=== PATIENT | male | born 1960 | race Caucasian/White ===

== ENCOUNTER 2024-03-29 13:22 | Outpatient (AMB) | payer OTHER, SELFPAY ==
--- OUTSIDE RECORDS SUMMARY | 2024-03-29 13:25 | XMS_ITS | Continuity of Care Document ---
Author Organization [facility] Address [address] [facility] [address] [place] [address] Phone Care Team Providers Care Reaming Press Operator Name Role Phone Flavio Garcia PA-C Unavailable Unavailable Allergies, Adverse Reactions, Alerts Substance Reaction Status Criticality No Known Allergies Active No Inform ation Medications Medication Instructions Dosage Effective Dates (start - stop) Status Comments naproxen 500 mg tablet take 1 tablet by oral route 2 times every day with food 500 MG - Active Vascepa 1 gram capsule take 2 capsule by oral route 2 times every day with food swallowing whole. Do not chew, open, dissolve and/or crush. 2 G - Active losartan 50 mg tablet take 1 tablet by o ral route every day 50 MG - Active Jardiance 10 mg tablet take 1 tablet by oral route every day in the morning 10 MG - Active garlic tablet - Active ezetimibe 10 mg tablet take 1 tablet by oral route every day 10 MG - Active Procedures Procedure Date Offic/outpt E&m Estab Mod-nh 4 24 Offic/outpt E&m Estab Mod-nh 2 24 Rad Exam Shoulder; Comp Offic/outpt E&m Estab Mod-nh 2 24 Rad Exam Knee; 4 View Offic/outpt E&m Estab Mod-nh 4 21 Offic/outpt E&m New Mod Sever 0 Offic/outpt E&m Estab Mod-nh 4 20 Offic/outpt E&m Estab Mod-nh 4 20 Postop F/u Visit Incld Global 0 Postop F/u Visit Incld Global 0 Postop F/u Visit Incld Global 0 Arthros Knee; W/menisect (med/ 20 Offic/outpt E&m Estab Mod-nh 4 20 Offic/outpt E&m Estab Mod-nh 2 20 Offic/outpt E&m New Mod-nh 60 0 Advance Directives Directive Yes / No Effective Date File Name No Information Encounters Encounter Description Practice Location Reason(s) For Visit Diagnoses Date Provider Providers Copied on Encounter [facility], [address], [id number], tel:[phone] /[facility] No Information 4 Jose Muniz . [address] [facility], [address] [place] [address], [id number] , [place]. tel:[phone] Offic/outpt E&m Estab Mod-nh 4 [facility], [address], [id number], [place] tel:[phone] /[facility] Obesity, [place] pain of left shoulderTraum atic complete tear of left rotator cuff, initial encounterRupt ure of left biceps tendon, initial encounterArth ritis of left acromioclavic ular joint Dec-0 4 Perla Frausto. [address] [facility], [address], [id number] , [place]. tel:[phone] Referring Provider: Jett Mcnulty, [address] [address], [place], [address] . tel:[phone] Offic/outpt E&m Estab Mod-nh 2 [facility], [address], [id number], [place] tel:[phone] /[facility] left shoulder (chief complaint) Acute pain of left shoulder 4 Jose Muniz . [address] [facility], [address], [place], [place], [id number] , [place]. tel:[phone] Referring Provider: Flavio Garcia, [address] [facility] [address], [place], [address] . tel:[phone] Offic/outpt E&m [facility] Mod-hi 2 [facility], [address] [facility] [address], [place], [id number], [place] tel:[phone] /[facility] Left shoulder (chief complaint) Acute pain of left shoulderObesi ty, unspecified 4 Jose Muniz . [address] [facility], [address], [place], [place], [id number] , [place]. tel:[phone] Referring Provider: Flavio Garcia, [address] [facility] Suite [facility], [place], [address] . tel:[phone] Offic/outpt E&m [facility] Mod-hi 4 [facility], [address] [facility] [address], [place], [place], [id number], [place] tel:[phone] /[facility] S/P right knee arthroscopyOb esity, unspecifiedCh ondromalacia of right kneeRight anterior knee painWork related injury 1 Perla Frausto. [address], [id number] , [place]. tel:[phone] Referring Provider: Jett Mcnulty, [address] [facility] [address], [place], [address] . tel:[phone] Offic/outpt E&m [facility] Sever [facility], [address] [address], [place], [place], [id number], [place] tel:[phone] [facility] (R) knee injury (chief complaint) Right anterior knee painH/O fracture of patellaWork related injuryObesity , unspecified 0 Matt Montez. [address] [facility], [facility] [address], [place], [id number] , [place]. [phone] Referring Provider: Tc Mcdermott, [address], [place], [address] . tel:[phone] Offic/outpt E&m Estab Mod-hi 4 [facility], [address], [place], [id number], [place] tel:[phone] [facility] Obesity, unspecifiedS/ P right knee arthroscopy Nov0 5 0 Perla Frausto. [address], [place], [id number] , [place]. tel:[phone] Referring Provider: Jett Mcnulty, [address], [place], [address] . tel:[phone] Offic/outpt E&m [facility] Mod-hi 4 [facility], [address], [place], [id number], [place] tel:[phone] [facility] S/P right knee arthroscopy 0 Perla Frausto. [address], [facility] [address], [place], [place], [id number] , [place]. [phone] Referring Provider: Jett Mcnulty, [address], [place], [address] . tel:[phone] [facility], [address] [facility] [address] [address], [place], [id number], [place] tel:[phone] [facility] S/P right knee arthroscopy 0 0 Perla Frausto. [address], [facility] [address], [place], [id number] , [place]. tel:[phone] Referring Provider: Jett Mcnulty, [address], [place], [address] . tel:[phone] [facility], [address] [address], [place], [id number], [place] tel:[phone] [facility] Obesity, unspecifiedS/ P right knee arthroscopy 0 Perla Frausto. [address] [facility], [facility] [address], [place], [id number] , [place]. tel:[phone] Referring Provider: Jett Mcnulty, [address] [facility] [address], [place], [address] . tel:[phone] [facility], [address] [facility] [address], [place], [id number], [place] tel:[phone] [facility] S/P right knee arthroscopy 0 Perla Frausto. [address] [facility], [facility] [address], [place], [id number] , [place]. tel:[phone] Referring Provider: Jett Mcnulty, [address] [address], [place], [address] . tel:[phone] [facility], [address] [address], [place], [id number], [place] tel:[phone] [facility] Surgery No Information 0 Perla Frausto. [address] [facility], [facility] [address], [place], [id number] , [place]. tel:[phone] Referring Provider: Jett Mcnulty, [address] [address], [place], [address] . tel:[phone] Offic/outpt E&m Estab Mod-hi 4 [facility], [address] [facility] [address], [place], [id number], [place] tel:[phone] [facility] Obesity, unspecifiedCu rrent peripheral tear of medial meniscus of right knee, initial encounterFrac ture of patella, sequela 0 Perla Frausto. [address] [facility], [facility] [address], [place], [id number] , [place]. tel:[phone] Referring Provider: Jett Mcnulty, [address] [facility] [address], [place], [address] . tel:[phone] Offic/outpt E&m [facility] Mod-hi 2 [facility], [address] [address], [place], [id number], [place] tel:[phone] [facility] Obesity, unspecifiedCu rrent peripheral tear of medial meniscus of right knee, initial encounterFrac ture of patella, sequela 0 Perla Frausto. [address] [facility], [facility] [address], [place], [place], [id number] , [place]. tel:[phone] Referring Provider: Jett Mcnulty, [address] [address], [place], [address] . tel:[phone] Offic/outpt E&m [facility] Mod-hi 60 [facility], [address], [id number], tel:[phone] [facility] Current peripheral tear of medial meniscus of right knee, initial encounterFrac ture of patella, sequelaObesit y, unspecified 0 Perla Frausto. [address] [facility], [facility] [address], [place], [address] , [place]. tel:[phone] Referring Provider: Jett Mcnulty, [address], [address] . tel:[phone] Family History Family Member Type Diagnosis Age At Onset Sister Problem (finding) Cancer, unknown Mother Problem (finding) Cancer, unknown Mother Problem Cancer, unknown Payers Payer name Insurance type Covered republican ID gerberamada delfintonya(rell [facility] [id number] Social History Type Description Quantity Date Captured Comments Sex Male Smoking Status No Information Chief Complaint And Reason For Visit No Information Reason For Referral Reason For Referral No Information Plan Of Treatment Date Type Action Status Goal Lifestyle education regardin g diet completed Goal Lifestyle education regardin g diet completed Goal Lifestyle education regardin g diet completed Goal Lifestyle education regardin g diet completed Goal Lifestyle education regardin g diet completed Goal Lifestyle education regardin g diet completed Goal Lifestyle education regardin g diet completed Goal Lifestyle education regardin g diet completed Goal Lifestyle education regardin g diet completed Goal Lifestyle education regardin g diet completed Goal Lifestyle education regardin g diet completed Referral Ordered: Rad Exam Shoulder; Comp ordered Referral Ordered: MRI Upper Extremity Other Than Joint W/O Cont. Left upper extremity ordered Referral Ordered: Rad Exam Knee; 4 View Right knee ordered Appointment Lakhwinder Kimball BOOKED History Of Present Illness Encounter Date Complaint History Of Prese nt Illness left shoulder The patient is a 63 year-old male who presents to the clinic to discuss the results of his mri left shoulder pain this is a work comp case. Reports a 8/10 pain level described as throbbing. Reports numbness and tingling in the left hand. Reports radiating pain down the left arm into his left elbow. Reports popping/clicking. Reports limited/painful ROM. Reports weakness. Reports the naproxen takes the edge off his pain. Left shoulder The patient is a 63 year-old male who presents to the clinic regarding left shoulder pain this is a work comp case. 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 Reports a 8/10 pain level described as throbbing. Reports numbness and tingling. Reports radiating pain down the left arm into his left hand. Reports popping/clicking. Reports limited/painful ROM. Reports weakness. Denies previous surgeries and injections. Patient had xrays, left thumb and left knee done at [facility], patient was given naproxen 500. Of note patient also complains of cervical pain, left knee, and left thumb pain. 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 This is a W/C related injury. Patient status post right knee arthroscopic partial medial meniscectomy, 10/06/[address] Duncan. He was transferred by Dr. Duncan for continued care on his right knee since surgery. He was placed at [facility] on 02/10/2020 and given an 8% PIR. The patient denies any problems with healing of the portals without swelling, redness, or warmth. The patient complains of persistent sharp, burning and throbbing right knee pain, rated 7/10. The patient underwent formal physical therapy without significant improvement in his symptoms, per report. There is discomfort interrupting the patient's sleep at night. The patient denies any fevers or chills, hip, back or groin pain. The patient complains of paresthesias through the right lower extremity. The patient has taken Mobic with benefit. Functional Status Date Functional Assessmen t No Information Instructions Date Instruction Additional Infor mation Lifestyle education regarding di et Related to Obesity, unspecified Lifestyle education regarding di et Related to Obesity, unspecified Lifestyle education regarding di et Related to Obesity, unspecified Lifestyle education regarding di et Related to Obesity, unspecified He is status post ar throscopic surgery. Dr. Duncan feels he is reached I. Related to Right anterior knee pain Patient was previous ly placed at [facility] by Dr. Duncan. He has been assigned an 8% impairment rating. He is back to work and he states he is having some pain but able to do his job. He was initially sent to me to discuss patellofemoral rehab but he states he is not interested at all. He wants to close his case and move on. He states he has had multiple physical therapy visits that have only made him worse. He actually feels better when he is moving around at work.I did review the notes from Dr. Duncan.He will be placed at [facility]. He has an 8% whole person impairment for which I deferred to Dr. Duncan. He may be released to work without any limitations. He wants no further treatment at this time. Related to Work related injury Lifestyle education regarding di et Related to Obesity, unspecified Lifestyle education regarding di et Related to Obesity, unspecified Lifestyle education regarding di et Related to Obesity, unspecified Lifestyle education regarding di et Related to Obesity, unspecified Lifestyle education regarding di et Related to Obesity, unspecified Lifestyle education regarding di et Related to Obesity, unspecified Lifestyle education regarding di et Related to Obesity, unspecified Assessments Type Assessment Date No Information Patient Care Teams Name Effective Dates (start - stop) Status Members No Information
--- NOTE | 2024-03-29 13:27 | MHC.PC.OV ---
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 Transferring from Dr Bravo in [place] in [place]. Overdue for visit MSK: Underwent spinal cord fusion at [facility], then went to [facility]. Gets home health evaluations once annually. On gabapentin, baclofen pump. Follows with physiatry Dr Jett Reed in [facility]. Nursing comes in once every 3 weeks to refill the baclofen pump. c/o rash bilateral feet and ankle. itchy at times/painful Urology: On tamsulosin Colon cancer: Colonoscopy within the last year at [facility]. ROS CONSTITUTIONAL: Denies weight loss, fever and chills. HEENT: Denies changes in vision and hearing. RESPIRATORY: Denies SOB and cough. CV: Denies palpitations and CP GI: Denies abdominal pain, nausea, vomiting and diarrhea. : Denies dysuria and urinary frequency. MSK: Denies new myalgia and joint pain. SKIN: see PHI NEUROLOGICAL: Denies headache PSYCHIATRIC: Denies recent changes in mood. PHYSICAL EXAM: GENERAL: Alert and oriented x 3. NAD EYES: EOMI. Anicteric. HENT: Moist mucous membranes. No scleral icterus. No cervical lymphadenopathy. LUNGS: Clear to auscultation bilaterally. CARDIOVASCULAR: Regular rate and rhythm. No murmur. No JVD. ABDOMEN: Soft, non-tender +bs EXTREMITIES: No edema. Non-tender. SKIN: Dishydrotic eczema NEUROLOGIC: No focal neurological deficits. CN II-XII grossly intact PSYCHIATRIC: Cooperative. Appropriate mood and affect [facility] Family History (Updated 03/29/24 @ 13:38 by Vicki Hale CMA) Brother Alcoholic Asthma Father Alcoholic Asthma Mother Asthma Social History (Updated 03/29/24 @ 13:36 by Vicki Hale CMA) Housing: House Patient Tobacco Use Status: Former Tobacco user Tobacco use type: Cigarette Cigarettes Per Day: 20 Years Smoked: 30 e-Cigarette/Vaping Use: Never Used Second Hand Smoke Exposure: No service: No Current occupational status: retired Cognitive needs: No Hearing needs: No Vision needs: Yes (glasses) Questionnaire PHQ-9 Over the last 2 weeks, how often have you been bothered by any of the following problems? 1. Little interest or pleasure in doing things: not at all 2. Feeling down, depressed, or hopeless: not at all 3. Trouble falling or staying asleep, or sleeping too much: not at all 4. Feeling tired or having little energy: not at all 5. Poor appetite or overeating: not at all 6. Feeling bad about yourself - or that you are a failure or have let yourself or your family down: not at all 7. Trouble concentrating on things, such as reading the newspaper or watching television: not at all 8. Moving or speaking so slowly that other people could have noticed. Or the opposite - being so fidgety or restless that you have been moving around a lot more than usual: not at all 9. Thoughts that you would be better off or of hurting yourself in some way: not at all Total score: 0 Depression Screening Interpretation: Negative Depression Screening Done: Yes 35768 - PHQ-9 Billing: Yes Source: Developed by Drs. Farzad Robbins, Ewa Arana, Jayy Zaragoza and colleagues, with an educational ke from [employer]. Thrive Questionnaire Date Thrive assessed: 03/29/24 I am a: Patient What is your living situation today?: I have a steady place to live Within the past 12 months, did the food you bought not last and you didn't have the money to get more?: Never true Within the past 12 months, did you worry whether your food would run out before you got money to buy more?: Never true Do you have trouble paying for medicines?: No Do you have trouble getting transportation to medical appointments?: No Do you have trouble paying your heating and electricity bill?: No Do you have trouble taking care of your child, family member or friend?: No Do you have trouble with day-to-day activities such as bathing, preparing meals, shopping, managing finances, etc.?: No Are you currently unemployed and looking for a job?: No Are you interested in more education?: No Please select the resources that you would like help with: None Currently or been in a relationship where the following occur: No concerns reported THRIVE Score: 0 AUDIT C Alcohol Use Questionnaire (AUDIT-C) 1. How often do you have a drink containing alcohol?: Never Total Score: 0 MARICHUY-7 AMB Questionnaire MARICHUY-7 Date MARICHUY - 7 assessed: 03/29/24 Feeling nervous, anxious, or on edge: 0 = Not at all Not being able to stop or control worryin = Not at all Worrying too much about different things: 0 = Not at all Trouble relaxin = Not at all Being so restless that it is hard to sit still: 0 = Not at all Becoming easily annoyed or irritable: 0 = Not at all Feeling afraid as if something awful might happen: 0 = Not at all Total MARICHUY-7 score (0-4 normal; 5-9 mild; 10-14 moderate; 15-21 severe): 0 Source: Developed by Drs. Farzad Robbins, Ewa Arana, Jayy Zaragoza and colleagues, with an educational ke from [employer]. MARICHUY-7 Assessment Billing MARICHUY-7 Assessment Tool: MARICHUY-7 Assessment 98169 Physical exam (Primary Care) Vital Signs: Last Vital Signs Pulse 81 03/29/24 13:42 BP 134/82 03/29/24 13:42 Pulse Ox 97 03/29/24 13:42 Oxygen Delivery Method Room Air 03/29/24 13:42 BMI result Body Mass Index 25.1 Tobacco/Smoking Status: Tobacco use Status Tobacco use date assessed 03/29/24 03/29/24 13:41 Patient Tobacco Use Status Former Tobacco user 03/29/24 13:41 Tobacco use type Cigarette 03/29/24 13:41 e-Cigarette/Vaping Use Never Used 03/29/24 13:41 PHQ-9: PHQ-9 Score PHQ-9: Total score 0 03/29/24 13:29 Depression Screening Interpretation: Negative Currently or been in a relationship where the following occur: No concerns reported Coding Level of Care Code New Pt Level 4 (50830) Diagnoses Encounter to establish care Z76.89 Bilateral foot-drop M21.371; M21.372 History of spinal cord injury Z87.828 Rash R21 Additional Codes MARICHUY-7 Assessment Billing - MARICHUY-7 Assessment Tool: MARICHUY-7 Assessment 66136 ([id number]) PHQ-9 - 21393 - PHQ-9 Billing: Yes ([id number]) Assessment & Plan Assessment & Plan (1) Encounter to establish care: Code(s): Z76.89 - Persons encountering health services in other specified circumstances Category: Medical Plan: 63 y/o to establish care. past medical, surgical, social and family history reviewed (2) Bilateral foot-drop: Code(s): M21.371 - Foot drop, right foot; M21.372 - Foot drop, left foot Category: Medical Plan: continue physiatry follow up (3) History of spinal cord injury: Code(s): Z87.828 - Personal history of other (healed) physical injury and trauma Category: Medical Plan: follow up physiatry (4) Rash: Code(s): R21 - Rash and other nonspecific skin eruption Category: Medical Plan: 3 day oral steroid steroid cream x 2 weeks then as needed Medications: New prednisone 40 mg (2 x 20 mg) PO DAILY 3 days 6 tabs 0RF Shingrix (PF) 50 mcg/0.5 mL (varicella-zoster gE-AS01B (PF)) 0.5 mL IM ONCE 1 ea 0RF NS betamethasone valerate 0.1% 1 appl topical BID PRN 45 grams 3RF skin irritation
[2024-03-29 13:42] VITALS: BP 134/82; PULSE 81; O2SAT 97; BMI 25.1
== END 2024-03-29 14:05 | disposition home or self-care (01) ==
PROVIDERS: PCP Internal Medicine; Visit Provider Internal Medicine
DX: Z76.89 Persons encountering health services in other specified circumstances (principal); M21.371 Foot drop, right foot; M21.372 Foot drop, left foot; Z87.828 Personal history of other (healed) physical injury and trauma; R21 Rash and other nonspecific skin eruption

== ENCOUNTER 2024-04-20 09:22 | Outpatient (AMB) | payer OTHER, SELFPAY ==
--- NOTE | 2024-04-20 09:42 | MHC.PC.OV ---
Vital Signs 04/20/24 09:44 04/20/24 09:48 BMI Reason not done Patient refused/unable BP 144/88 H 136/84 Blood Pressure Location Lt brachial Lt brachial Position Sitting Sitting Pulse 65 Pulse Source Pulse Oximeter Temp 98.3 F Temp Source Oral Pulse Oximetry (%) 93 Oxygen Delivery Method Room Air Intake Visit Reasons: Rash on feet Intake Note: Bialteral rash on legs and feet. Ongoing for a month. 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. Transferring from Dr Bravo in [place] in [place]. Overdue for visit MSK: Underwent spinal cord fusion at [facility], then went to [facility]. Gets home health evaluations once annually. On gabapentin, baclofen pump. Follows with physiatry Dr Jett Reed [place]. Nursing comes in once every 3 weeks to refill the baclofen pump. Continued rash bilateral feet and ankle, lower leg left>right. Tender, slightly itchy. Circular and petechial in areas. Tried oral prednisone with some relief on feet otherwise no improvement. Topical steroid has not been working Urology: On tamsulosin Colon cancer: Colonoscopy within the last year at [facility]. ROS CONSTITUTIONAL: Denies weight loss, fever and chills. HEENT: Denies changes in vision and hearing. RESPIRATORY: Denies SOB and cough. CV: Denies palpitations and CP GI: Denies abdominal pain, nausea, vomiting and diarrhea. : Denies dysuria and urinary frequency. MSK: Denies new myalgia and joint pain. SKIN: see HPI NEUROLOGICAL: Denies headache PSYCHIATRIC: Denies recent changes in mood. PHYSICAL EXAM: GENERAL: Alert and oriented x 3. NAD EYES: EOMI. Anicteric. HENT: Moist mucous membranes. No scleral icterus. No cervical lymphadenopathy. LUNGS: Clear to auscultation bilaterally. CARDIOVASCULAR: Regular rate and rhythm. No murmur. No JVD. ABDOMEN: Soft, non-tender +bs EXTREMITIES: No edema. Non-tender. SKIN: circular red slightly raised rash, petechial in spots, slight ulceration in anterior palma ~1cm NEUROLOGIC: No focal neurological deficits. CN II-XII grossly intact PSYCHIATRIC: Cooperative. Appropriate mood and affect [facility] Family History Brother Alcoholic Asthma Father Alcoholic Asthma Mother Asthma Social History (Updated 04/20/24 @ 09:52 by Vicki Hale CMA) Housing: House Alcohol intake: current Patient Tobacco Use Status: Former Tobacco user Tobacco use type: Cigarette Cigarettes Per Day: 20 Years Smoked: 30 e-Cigarette/Vaping Use: Never Used Second Hand Smoke Exposure: No service: No Current occupational status: retired Cognitive needs: No Hearing needs: No Vision needs: Yes (glasses) Questionnaire Thrive Questionnaire Date Thrive assessed: 04/17/24 I am a: Patient What is your living situation today?: I have a steady place to live Within the past 12 months, did the food you bought not last and you didn't have the money to get more?: Never true Within the past 12 months, did you worry whether your food would run out before you got money to buy more?: Never true Do you have trouble paying for medicines?: No Do you have trouble getting transportation to medical appointments?: No Do you have trouble paying your heating and electricity bill?: No Do you have trouble taking care of your child, family member or friend?: No Do you have trouble with day-to-day activities such as bathing, preparing meals, shopping, managing finances, etc.?: No Are you currently unemployed and looking for a job?: No Are you interested in more education?: No Please select the resources that you would like help with: None Currently or been in a relationship where the following occur: No concerns reported THRIVE Score: 0 AUDIT C Alcohol Use Questionnaire (AUDIT-C) 1. How often do you have a drink containing alcohol?: Never Total Score: 0 MARICHUY-7 AMB Questionnaire MARICHUY-7 Date MARICHUY - 7 assessed: 03/29/24 Source: Developed by Drs. Farzad Robbins, Ewa Arana, Jayy Zaragoza and colleagues, with an educational ke from [employer]. Physical exam (Primary Care) Vital Signs: Last Vital Signs Temp 98.3 F 04/20/24 09:44 Pulse 65 04/20/24 09:44 BP 136/84 04/20/24 09:48 Pulse Ox 93 04/20/24 09:44 Oxygen Delivery Method Room Air 04/20/24 09:44 Tobacco/Smoking Status: Tobacco use Status Tobacco use date assessed 03/29/24 04/20/24 09:52 Patient Tobacco Use Status Former Tobacco user 04/20/24 09:52 Tobacco use type Cigarette 04/20/24 09:52 e-Cigarette/Vaping Use Never Used 04/20/24 09:52 Thrive Assessment: Date of Thrive Assessment Date Thrive assessed 04/17/24 04/20/24 09:52 Currently or been in a relationship where the following occur: No concerns reported Coding Level of Care Code Est Pt Level 3 (54776) Diagnoses Rash R21 Assessment & Plan Assessment & Plan (1) Rash: Code(s): R21 - Rash and other nonspecific skin eruption Category: Medical Plan: Lotrisone ordered Referral to dermatology Orders: Referrals Dermatology Referral R21 - Rash and other nonspecific skin eruption Medications: New clotrimazole-betamethasone 1-0.05 % 1 appl topical BID 4 weeks 45 grams 1RF Discontinued betamethasone valerate 0.1% Discontinued Reason: Doctor's Order 1 appl topical BID PRN 45 grams 3RF skin irritation
[2024-04-20 09:44] VITALS: BP 144/88; PULSE 65; TEMP 36.8; O2SAT 93
[2024-04-20 09:48] VITALS: BP 136/84
--- OUTSIDE RECORDS SUMMARY | 2024-04-20 10:13 | XMS_ITS | Continuity of Care Document ---
Author Organization [facility] Address [address] [facility] [address] [place] [address] Phone Care Team Providers Care Media Specialist Name Role Phone Jett Duncan MD Unavailable Unavailable Allergies, Adverse Reactions, Alerts Substance [...] Active Procedures Procedure Date Offic/outpt E&m Estab Mod-ga 4 25 Offic/outpt E&m Estab Mod-ga 4 24 Offic/outpt E&m Estab Mod-ga 2 24 Rad Exam Shoulder; Comp Offic/outpt E&m Estab Mod-hi 2 24 Rad Exam Knee; 4 View Offic/outpt E&m Estab Mod-hi 4 21 Offic/outpt E&m New Mod Sever 0 Offic/outpt E&m Estab Mod-hi 4 20 Offic/outpt E&m Estab Mod-ga 4 20 Postop F/u Visit Incld Global 0 Postop F/u Visit Incld Global 0 Postop F/u Visit Incld Global 0 Arthros Knee; W/menisect (med/ 20 Offic/outpt E&m Estab Mod-ga 4 20 Offic/outpt E&m Estab Mod-ga 2 20 Offic/outpt E&m New Mod-ga 60 0 Advance Directives Directive Yes / No Effective Date File Name No Information Encounters Encounter Description Practice Location Reason(s) For Visit Diagnoses Date Provider Providers Copied on Encounter [facility], [address], [id number], tel:[phone] /[facility] No Information 5 Uriel Frausto. [address], [id number] , [place]. tel:[phone] Offic/outpt E&m Estab [facility] 4 [facility], [address], [id number], tel:[phone] /[facility] Acute pain of left shoulderArthr itis of left acromioclavic ular jointRupture of left biceps tendon, initial encounterTrau matic complete tear of left rotator cuff, subsequent encounterObes ity, unspecified 5 Uriel Frausto. [address], [id number] , [place]. tel:[phone] Referring Provider: Jett Mcnulty, [address], [address] . tel:[phone] Offic/outpt E&m Estab Mod-ga 4 [facility], [address], [id number], [place] tel:[phone] /[facility] Obesity, unspecifiedAc jana pain of left shoulderTraum atic complete tear of left rotator cuff, initial encounterRupt ure of left biceps tendon, initial encounterArth ritis of left acromioclavic ular joint Sep-0 4 Uriel Frausto. [address] [facility], [place], [place], [id number] , [place]. tel:[phone] Referring Provider: Jett Mcnulty, [address] [facility] [address], [place], [address] . tel:[phone] Offic/outpt E&m Estab Mod-hi 2 [facility], [address] [facility] [address], [place], [place], [id number], [place] tel:[phone] /[facility] left shoulder (chief complaint) Acute pain of left shoulder 4 Jose Muniz . [address] [facility], [address], [place], [place], [id number] , [place]. tel:[phone] Referring Provider: Flavio Garcia, [address] [facility] [address], [place], [address] . tel:[phone] Offic/outpt E&m Estab Mod-hi 2 [facility], [address] [facility] [address], [place], [place], [id number], [place] tel:[phone] /[facility] Left shoulder (chief complaint) Acute pain of left shoulderObesi ty, unspecified 4 Jose Muniz . [address] [facility], [place], [place], [id number] , [place]. tel:[phone] Referring Provider: Flavio Garcia, [address] [facility] [address], [place], [address] . tel:[phone] Offic/outpt E&m Estab Mod-hi 4 [facility], [address] [facility] [address], [place], [place], [id number], [place] tel:[phone] /[facility] S/P right knee arthroscopyOb esity, unspecifiedCh ondromalacia of right kneeRight anterior knee painWork related injury 1 Uriel Frausto. [address] [facility], [facility] [address], [place], [place], [id number] , [place]. tel:[phone] Referring Provider: Jett Mcnulty, [address] [facility] [address], [place], [address] . tel:[phone] Offic/outpt E&m New Mod Sever [facility], [address] [address], [place], [place], [id number], [place] tel:[phone] [facility] (R) knee injury (chief complaint) Right anterior knee painH/O fracture of patellaWork related injuryObesity , unspecified 0 Matt Montez. [address] [facility], [address] [address], [place], [place], [id number] , [place]. [phone] Referring Provider: Tc Mcdermott, [address] [address], [place], [address] . tel:[phone] Offic/outpt E&m [facility] Mod-hi 4 [facility], [address], [id number], [place] tel:[phone] [facility] Obesity, unspecifiedS/ P right knee arthroscopy 0 Uriel Frausto. [address] [facility], [address], [id number] , [place]. tel:[phone] Referring Provider: Jett Mcnulty, [address] [facility] [address], [address] . tel:[phone] Offic/outpt E&m Estab Mod-hi 4 [facility], [address] [address], [place], [place], [id number], [place] tel:[phone] [facility] S/P right knee arthroscopy 0 Uriel Frausto. [address] [facility], [facility] [address], [place], [id number] , [place]. tel:[phone] Referring Provider: Jett Mcnulty, [address], [place], [address] . tel:[phone] [facility], [address], [place], [place], [id number], [place] tel:[phone] [facility] S/P right knee arthroscopy 0 Uriel Frausto. [address], [place], [place], [id number] , [place]. tel:[phone] Referring Provider: Jett Mcnulty, [address], [place], [address] . tel:[phone] [facility], [address], [place], [place], [id number], [place] tel:[phone] [facility] Obesity, unspecifiedS/ P right knee arthroscopy 0 Uriel Frausto. [address], [place], [place], [id number] , [place]. tel:[phone] Referring Provider: Jett Mcnulty, [address], [place], [address] . tel:[phone] [facility], [address], [place], [place], [id number], [place] tel:[phone] [facility] S/P right knee arthroscopy 0 Uriel Frausto. [address], [place], [place], [id number] , [place]. tel:[phone] Referring Provider: Jett Mcnulty, [address], [place], [address] . tel:[phone] [facility], [address], [place], [place], [address], [place] tel:[phone] [facility] No Information 0 Uriel Frausto. [address], [place], [place], [id number] , [place]. tel:[phone] Referring Provider: Jett Mcnulty, [address], [place], [address] . tel:[phone] Offic/outpt E&m [facility] Mod-hi 4 [facility], [address], [place], [place], [id number], [place] tel:[phone] [facility] Obesity, unspecifiedCu rrent peripheral tear of medial meniscus of right knee, initial encounterFrac ture of patella, sequela 0 Uriel Frausto. [address], [facility] [address], [place], [place], [id number] , [place]. tel:[phone] Referring Provider: Jett Mcnulty, [address] [address], [place], [address] . tel:[phone] Offic/outpt E&m [facility] Mod-hi 2 [facility], [address], [place], [place], [address], [place] tel:[phone] [facility] Obesity, unspecifiedCu rrent peripheral tear of medial meniscus of right knee, initial encounterFrac ture of patella, sequela 0 Uriel Frausto. [address], [facility] [address], [place], [place], [id number] , [place]. tel:[phone] Referring Provider: Jett Mcnulty, [address], [place], [address] . tel:[phone] Offic/outpt E&m New Mod-hi 60 [facility], [address], [place], [address], [place] tel:[phone] [facility] Current peripheral tear of medial meniscus of right knee, initial encounterFrac ture of patella, sequelaObesit y, unspecified Mariana Frausto. [address] [facility], [facility] [address], [place], [place], [address] , . [phone] Referring Provider: Jett Mcnulty, [address] [facility] [address], [place], [address] . tel:[phone] Family History Family Member Type Diagnosis Age At Onset Sister Problem (finding) Cancer, unknown Mother Problem (finding) Cancer, unknown Mother Problem Cancer, unknown Payers Payer name Insurance type Covered green party ID Authoriza tion(s) No Information Social History Type Description Quantity Date Captured [...] View Right knee ordered Appointment Lak[facility] Kimball PREOP URIEL MATHIS OKED Appointment Lakhwinder Kimball BOOKED Appointment Lakhwinder Kimball (Preferred) DEL OKED Appointment Lakhwinder Kimball BOOKED History Of Present [...] left thumb and left knee done at [facility], patient was given naproxen 500. Of note patient also complains of cervical pain, left knee, and left thumb pain. 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 [...] No Information Instructions Date Instruction Additional Infor sally Lifestyle education regarding di et Related to Obesity, unspecified Lifestyle education regarding di et Related to Obesity, unspecified Lifestyle education regarding di et Related to Obesity, unspecified Lifestyle education regarding di et Related to Obesity, unspecified Lifestyle education regarding di et Related to Obesity, unspecified Patient was previous ly placed at [facility] by Dr. Duncan. He has been assigned [...] from Dr. Duncan.He will be placed at [facility]. He has an 8% whole person impairment for which I deferred to Dr. Duncan. He may be released to work without any limitations. He wants no further treatment at this time. Related to Work related injury He is status post ar throscopic surgery. Dr. Duncan feels he is reached [facility]. Related to Right anterior knee pain Lifestyle education regarding di et Related to [...]
== END 2024-04-20 10:28 | disposition home or self-care (01) ==
PROVIDERS: PCP Internal Medicine; Visit Provider Internal Medicine
DX: R21 Rash and other nonspecific skin eruption (principal)

== ENCOUNTER → 2024-04-20 09:22 | Outpatient (BNVA) | payer OTHER, SELFPAY | PROVIDERS: PCP Internal Medicine; Visit Provider Internal Medicine ==

== ENCOUNTER 2024-09-13 09:17 | Outpatient (AMB) | payer OTHER, SELFPAY ==
--- NOTE | 2024-09-13 09:19 | A.OFFPC_ITS ---
Vital Signs 09/13/24 09:23 09/13/24 09:27 Height 5 ft 7 in BMI Reason not done Patient refused/unable BP 148/78 H 144/80 H Blood Pressure Location Lt brachial Lt brachial Position Sitting Sitting Respiration 14 Pulse 66 Pulse Source Pulse Oximeter Temp 98.1 F Temp Source Oral Pulse Oximetry (%) 91 L Oxygen Delivery Method Room Air Intake Visit Reasons: Sore on LT. 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 Denies fevers. Has been using rash from [place] for dermatitis. Continued rash bilateral feet and ankle, lower leg left>right. Tender, slightly itchy. Circular and petechial in areas. Tried oral prednisone with some relief on feet otherwise no improvement. Topical steroid has not been working MSK: Underwent spinal cord fusion at [facility], then went to [facility]. Gets home health evaluations once annually. On gabapentin, baclofen pump. Follows with physiatry Dr Jett Reed in [facility]. Nursing comes in once every 3 weeks to refill the baclofen pump. Urology: On tamsulosin Colon cancer: Colonoscopy within the last year at [facility]. ROS see HPI PHYSICAL EXAM: GENERAL: Alert and oriented x 3. NAD EYES: EOMI. Anicteric. HENT: Moist mucous membranes. No scleral icterus. No cervical lymphadenopathy. LUNGS: Clear to auscultation bilaterally. CARDIOVASCULAR: Regular rate and rhythm. No murmur. No JVD. ABDOMEN: Soft, non-tender +bs EXTREMITIES: No edema. Left palma non purulent red warm cellulitis over majority of medial anterior palma with proximal and distal streaking. slight ulceration in anterior palma ~1cm (chronic) NEUROLOGIC: No focal neurological deficits. CN II-XII grossly intact PSYCHIATRIC: Cooperative. Appropriate mood and affect [facility] Family History Brother Alcoholic Asthma Father Alcoholic Asthma Mother Asthma Social History Housing: House Alcohol intake: current Patient Tobacco Use Status: Former Tobacco user Tobacco use type: Cigarette Cigarettes Per Day: 20 Years Smoked: 30 e-Cigarette/Vaping Use: Never Used Second Hand Smoke Exposure: No Substance Use Type: Marijuana service: No Current occupational status: retired Cognitive needs: No Hearing needs: No Vision needs: Yes (glasses) Questionnaire Thrive Questionnaire Date Thrive assessed: 04/17/24 I am a: Patient What is your living situation today?: I have a steady place to live Within the past 12 months, did the food you bought not last and you didn't have the money to get more?: Never true Within the past 12 months, did you worry whether your food would run out before you got money to buy more?: Never true Do you have trouble paying for medicines?: No Do you have trouble getting transportation to medical appointments?: No Do you have trouble paying your heating and electricity bill?: No Do you have trouble taking care of your child, family member or friend?: No Do you have trouble with day-to-day activities such as bathing, preparing meals, shopping, managing finances, etc.?: No Are you currently unemployed and looking for a job?: No Are you interested in more education?: No Please select the resources that you would like help with: None Currently or been in a relationship where the following occur: No concerns reported THRIVE Score: 0 AUDIT C Alcohol Use Questionnaire (AUDIT-C) 1. How often do you have a drink containing alcohol?: Never 3. How often do you have six or more drinks on one occasion?: Never Total Score: 0 MARICHUY-7 AMB Questionnaire MARICHUY-7 Date MARICHUY - 7 assessed: 03/29/24 Source: Developed by Drs. Farzad Robbins, Ewa Arana, Jayy Zaragoza and colleagues, with an educational ke from [employer]. Physical exam (Primary Care) Vital Signs: Last Vital Signs Temp 98.1 F 09/13/24 09:23 Pulse 66 09/13/24 09:23 Resp 14 09/13/24 09:23 BP 144/80 H 09/13/24 09:27 Pulse Ox 91 L 09/13/24 09:23 Oxygen Delivery Method Room Air 09/13/24 09:23 Tobacco/Smoking Status: Tobacco use Status Tobacco use date assessed 09/13/24 09/13/24 09:24 Patient Tobacco Use Status Former Tobacco user 09/13/24 09:30 Tobacco use type Cigarette 09/13/24 09:30 e-Cigarette/Vaping Use Never Used 09/13/24 09:30 Thrive Assessment: Date of Thrive Assessment Date Thrive assessed 04/17/24 09/13/24 09:21 Currently or been in a relationship where the following occur: No concerns reported Coding Level of Care Code Est Pt Level 4 (53408) Diagnoses Left leg cellulitis L03.116 Assessment & Plan Assessment & Plan (1) Left leg cellulitis: Code(s): L03.116 - Cellulitis of left lower limb Category: Medical Plan 64 year old presenting with cellulitis Non purulent Will start keflex x 10 days. Follow up in one week for recheck Medications: New cephalexin 500 mg PO QID 40 caps 0RF
[2024-09-13 09:23] VITALS: BP 148/78; PULSE 66; RESP 14; TEMP 36.7; O2SAT 91
[2024-09-13 09:27] VITALS: BP 144/80
--- OUTSIDE RECORDS SUMMARY | 2024-09-13 09:44 | XMS_ITS | Clinical Summary ---
Author Organization [facility] Address [address] [place] [address] Care Team Providers Care Network Project Manager Name Role Phone Unavailable Primary Care Provider Unavailabl e Social History Tobacco Use Types Packs/Day Years Used Date Smoking Tobacco: Never Assessed Sex and Gender Information Value Date Recorded Sex Assigned at Not on file Legal Sex Male 5:16 PM EST Gender Identity Not on file Sexual Orientation Not on file Plan of Treatment Health Maintenance Due Date Last Done Comments Hepatitis C Virus Screening 1961 HIV Screening 1974 DTaP/Tdap/Td Vaccines (1 - Tdap) 1980 Colonoscopy 2006 Pneumococcal Vaccines 50+ (1 of 1 - PCV) 06/27/2011 Zoster (Shingles) Vaccine (1 of 2) 06/27/2011 COVID-19 Vaccine ( - 2023-2 5 season) 2023 Influenza Vaccine 11/05/2024 RSV Vaccine 60 years and old er and Patients (1 - 1-dose 75+ series) 2036 Hepatitis B Vaccines Aged Out No long er eligible based on patient's age to complete this topic Insurance [facility]
== END 2024-09-13 09:46 | disposition home or self-care (01) ==
LOC: HO.HMCFM 09:18
PROVIDERS: PCP Internal Medicine; Visit Provider Internal Medicine
DX: L03.116 Cellulitis of left lower limb (principal)

== ENCOUNTER → 2024-09-13 09:17 | Outpatient (BNVA) | payer MEDICARE, SELFPAY | PROVIDERS: PCP Internal Medicine; Visit Provider Internal Medicine ==

== ENCOUNTER 2024-09-21 14:35 | Outpatient (AMB) | payer OTHER, SELFPAY ==
--- NOTE | 2024-09-21 14:40 | MHC.PC.OV ---
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 Patient received a course of keflex with receding redness since onset. Denies fevers. Has been using rash from [facility] for dermatitis. Continued rash bilateral feet and ankle, lower leg left>right. Tender, slightly itchy. Circular and petechial in areas. Tried oral prednisone with some relief on feet otherwise no improvement. Topical steroid has not been working MSK: Underwent spinal cord fusion at [facility], then went to [facility]. Gets home health evaluations once annually. On gabapentin, baclofen pump. Follows with physiatry Dr Jett Reed in [facility]. Nursing comes in once every 3 weeks to refill the baclofen pump. Urology: On tamsulosin Colon cancer: Colonoscopy within the last year at [facility]. ROS see HPI PHYSICAL EXAM: GENERAL: Alert and oriented x 3. NAD EYES: EOMI. Anicteric. HENT: Moist mucous membranes. No scleral icterus. No cervical lymphadenopathy. LUNGS: Clear to auscultation bilaterally. CARDIOVASCULAR: Regular rate and rhythm. No murmur. No JVD. ABDOMEN: Soft, non-tender +bs EXTREMITIES: receding but still persistent cellulitic changes. Underlying peripheral vascular changes NEUROLOGIC: No focal neurological deficits. CN II-XII grossly intact PSYCHIATRIC: Cooperative. Appropriate mood and affect [facility] Family History Brother Alcoholic Asthma Father Alcoholic Asthma Mother Asthma Social History Housing: House Alcohol intake: current Patient Tobacco Use Status: Former Tobacco user Tobacco use type: Cigarette Cigarettes Per Day: 20 Years Smoked: 30 e-Cigarette/Vaping Use: Never Used Second Hand Smoke Exposure: No Substance Use Type: Marijuana service: No Current occupational status: retired Cognitive needs: No Hearing needs: No Vision needs: Yes (glasses) Questionnaire PHQ-9 Over the last 2 weeks, how often have you been bothered by any of the following problems? 1. Little interest or pleasure in doing things: not at all 2. Feeling down, depressed, or hopeless: not at all 3. Trouble falling or staying asleep, or sleeping too much: not at all 4. Feeling tired or having little energy: not at all 5. Poor appetite or overeating: not at all 6. Feeling bad about yourself - or that you are a failure or have let yourself or your family down: not at all 7. Trouble concentrating on things, such as reading the newspaper or watching television: not at all 8. Moving or speaking so slowly that other people could have noticed. Or the opposite - being so fidgety or restless that you have been moving around a lot more than usual: not at all 9. Thoughts that you would be better off or of hurting yourself in some way: not at all Total score: 0 Depression Screening Interpretation: Negative Depression Screening Done: Yes 00253 - PHQ-9 Billing: Yes Source: Developed by Drs. Farzad Robbins, Ewa Arana, Jayy Zaragoza and colleagues, with an educational ke from [employer]. Thrive Questionnaire Date Thrive assessed: 04/17/24 Within the past 12 months, did the food you bought not last and you didn't have the money to get more?: Never true Within the past 12 months, did you worry whether your food would run out before you got money to buy more?: Never true Do you have trouble paying your heating and electricity bill?: No Do you have trouble with day-to-day activities such as bathing, preparing meals, shopping, managing finances, etc.?: No Are you interested in more education?: No Please select the resources that you would like help with: None Currently or been in a relationship where the following occur: No concerns reported THRIVE Score: 0 MARICHUY-7 AMB Questionnaire MARICHUY-7 Date MARICHUY - 7 assessed: 03/29/24 Feeling nervous, anxious, or on edge: 0 = Not at all Not being able to stop or control worryin = Not at all Worrying too much about different things: 0 = Not at all Trouble relaxin = Not at all Being so restless that it is hard to sit still: 0 = Not at all Becoming easily annoyed or irritable: 0 = Not at all Feeling afraid as if something awful might happen: 0 = Not at all Total MARICHUY-7 score (0-4 normal; 5-9 mild; 10-14 moderate; 15-21 severe): 0 Source: Developed by Drs. Farzad Robbins, Ewa Arana, Jayy Zaragoza and colleagues, with an educational ke from [employer]. Physical exam (Primary Care) Vital Signs: Last Vital Signs Temp 99.1 F 09/21/24 14:43 Pulse 74 09/21/24 14:43 Resp 14 09/21/24 14:43 BP 139/76 09/21/24 14:43 Pulse Ox 92 09/21/24 14:43 Oxygen Delivery Method Room Air 09/21/24 14:43 Tobacco/Smoking Status: Tobacco use Status Tobacco use date assessed 09/21/24 09/21/24 14:49 Patient Tobacco Use Status Former Tobacco user 09/21/24 14:42 Tobacco use type Cigarette 09/21/24 14:42 e-Cigarette/Vaping Use Never Used 09/21/24 14:42 PHQ-9: PHQ-9 Score PHQ-9: Total score 0 09/21/24 14:56 Depression Screening Interpretation: Negative Thrive Assessment: Date of Thrive Assessment Date Thrive assessed 04/17/24 09/21/24 14:42 Currently or been in a relationship where the following occur: No concerns reported Coding Level of Care Code Est Pt Level 4 (03060) Diagnoses Peripheral vascular disease I73.9 Left leg cellulitis L03.116 Rash R21 Additional Codes PHQ-9 - 05681 - PHQ-9 Billing: Yes ([id number]) Assessment & Plan Assessment & Plan (1) Peripheral vascular disease: Code(s): I73.9 - Peripheral vascular disease, unspecified Category: Medical (2) Left leg cellulitis: Code(s): L03.116 - Cellulitis of left lower limb Category: Medical (3) Rash: Code(s): R21 - Rash and other nonspecific skin eruption Category: Medical Plan 64 yo for f/up cellulitis Improving though without resolution Repeat kelfex course Referral to vascular Orders: Referrals Vascular Surgery Referral I73.9 - Peripheral vascular disease, unspecified, L03.116 - Cellulitis of left lower limb, Z87.828 - Personal history of other (healed) physical injury and trauma Medications: Refilled cephalexin 500 mg PO QID 40 caps 0RF
[2024-09-21 14:43] VITALS: BP 139/76; PULSE 74; RESP 14; TEMP 37.3; O2SAT 92
--- OUTSIDE RECORDS SUMMARY | 2024-09-21 16:55 | XMS_ITS | Continuity of Care Document ---
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 Role Phone Jett Duncan MD Unavailable Unavailable Allergies, Adverse Reactions, Alerts Substance Reaction Status Criticality No Known Allergies Active No Inform ation Medications Medication Instructions Dosage Effective Dates (start - stop) Status Comments meloxicam 15 mg tablet take 1 tablet by oral route every day 15 MG - Active Vascepa 1 gram capsule [...] Active Procedures Procedure Date Offic/outpt E&m Estab Mod-hi 2 25 Postop F/u Visit Inc[facility] Global 5 Rad Exam Shoulder; Comp Postop F/u Visit [facility] Global 5 Postop F/u Visit [facility] Global 5 Postop F/u Visit [facility] 5 ARTHROSCOP ROTATOR CUFF RREPR 5 Scope Shldr Surg;dist Clavicul Arthroscpy Shldr; Decomp Subac Feb-03-20 25 Unlisted Procedure Arthroscopy 25 Platelet Rich Plasma PRP Injection Offic/outpt E&m Estab Mod-nd 4 25 Acromio/clavicular canvas&we Offic/outpt E&m Estab Mod-nd 4 25 Offic/outpt E&m Estab Mod-nd 4 24 Offic/outpt E&m Estab Mod-nd 2 24 Rad Exam Shoulder; Comp Offic/outpt E&m Estab Mod-hi 2 24 Rad Exam Knee; 4 View Offic/outpt E&m Estab Mod-hi 4 21 Offic/outpt E&m New Mod [facility] 0 Offic/outpt E&m Estab Mod-nd 4 20 Offic/outpt E&m Estab Mod-nd 4 20 Postop F/u Visit [facility] 0 Postop F/u Visit [facility] 0 Postop F/u Visit [facility] 0 Arthros Knee; W/menisect (med/ 20 Offic/outpt E&m Estab Mod-nd 4 20 Offic/outpt E&m Estab Mod-nd 2 20 Offic/outpt E&m New Mod-nd 60 0 Advance Directives Directive Yes / No Effective Date File Name Other Directive No N/A N/A WARNING:The information contained in this section is historical and is provided for information only and does not constitute a legal document or any assurance that the information is still accurate. Please verify the information with the cook of the legal document before using it for clinical purposes. Encounters Encounter Description Practice Location Reason(s) For Visit Diagnoses Date Provider Providers Copied on Encounter Offic/outpt E&m Estab Mod-nd 2 [facility], [address] [address], [place], [place], [id number], [place] tel:[phone] /[facility] Obesity, unspecifiedAr thritis of left acromioclavic ular jointTraumati c complete tear of left rotator cuff, subsequent encounterS/P arthroscopy of left shoulder 5 Perla Frausto. [address] [facility], [place], [place], [address] , [place]. tel:[phone] Referring Provider: Jett Mcnulty, [address], [place], [address] . tel:[phone] [facility], [address], [place], [place], [address], [place] tel:[phone] /[facility] Obesity, unspecifiedS/ P arthroscopy of left shoulder 5 Perla Frausto. [address] [facility], [place], [place], [address] , [place]. tel:[phone] Referring Provider: Jett Mcnulty, [address] [address], [place], [address] . tel:[phone] [facility], [address], [place], [place], [address], [place] tel:[phone] /[facility] S/P arthroscopy of left shoulderObesi ty, unspecified 5 Perla Frausto. [address] [facility], [place], [place], [address] , [place]. [phone] Referring Provider: Jett Mcnulty, [address] [facility] [address], [place], [address] . tel:[phone] [facility], [address], [place], [place], [address], [place] tel:[phone] /[facility] S/p Left shoulder (chief complaint) Obesity, unspecifiedS/ P arthroscopy of left shoulder 5 Jose Muniz . [address], [place], [place], [address] , [place]. tel:[phone] Referring Provider: Jett Mcnulty, [address] [facility] [address], [place], [address] . tel:[phone] [facility], [address] [address], [place], [place], [address], [place] tel:[phone] /[facility] S/P arthroscopy of left shoulderObesi ty, unspecified Feb- 5 Perla Frausto. [address] [facility], [address], [id number] , [place]. tel:[phone] Referring Provider: Jett Mcnulty, [address] [address], [place], [address] . tel:[phone] [facility], [address], [id number], [place] tel:[phone] /[facility] No Information 5 Perla Frausto. [address], [id number] , [place]. tel:[phone] Referring Provider: Jett Mcnulty, [address] [address], [place], [address] . tel:[phone] Offic/outpt E&m Estab Mod-hi 4 [facility], [address], [id number], [place] tel:[phone] /[facility] Obesity, unspecifiedAc [place] pain of left shoulderArthr itis of left acromioclavic ular jointTraumati c complete tear of left rotator cuff, subsequent encounterRupt ure of left biceps tendon, initial encounter 5 Perla Frausto. [address] [address], [place], [place], [address] , [place]. tel:[phone] Referring Provider: Jtet Mcnulty, [address] [address], [place], [address] . tel:[phone] Offic/outpt E&m Estab Mod-hi 4 [facility], [address] [facility] [address], [place], [place], [address], [place] tel:[phone] /[facility] Acute pain of left shoulderArthr itis of left acromioclavic ular jointRupture of left biceps tendon, initial encounterTrau matic complete tear of left rotator cuff, subsequent encounterObes ity, unspecified Jaciel-0 5 Perla Frausto. [address] [facility], [facility] [address], [place], [place], [address] , [place]. tel:[phone] Referring Provider: Jett Mcnulty, [address] [facility] [address], [place], [address] . tel:[phone] Offic/outpt E&m Estab Mod-hi 4 [facility], [address] [address], [place], [place], [address], [place] tel:[phone] /[facility] Obesity, unspecifiedAc [place] pain of left shoulderTraum atic complete tear of left rotator cuff, initial encounterRupt ure of left biceps tendon, initial encounterArth ritis of left acromioclavic ular joint Sep-0 4 Perla Frausto. [address] [facility], [facility] [address], [place], [place], [address] , [place]. tel:[phone] Referring Provider: Jett Mcnulty, [address] [address], [place], [address] . tel:[phone] Offic/outpt E&m Estab Mod-hi 2 [facility], [address] [address], [place], [place], [address], [place] tel:[phone] /[facility] left shoulder (chief complaint) Acute pain of left shoulder 4 Jose Muniz . [address] [facility], [place], [place], [address] , [place]. tel:[phone] Referring Provider: Flavio Garcia, [address] [facility] [address], [place], [address] . tel:[phone] Offic/outpt E&m [facility] Mod-hi 2 [facility], [address], [place], [place], [address], [place] tel:[phone] /[facility] Left shoulder (chief complaint) Acute pain of left shoulderObesi ty, unspecified 4 Jose Muniz . [address] [facility], [place], [place], [address] , [place]. tel:[phone] Referring Provider: Flavio Jose, [address] [facility] [address], [place], [address] . tel:[phone] Offic/outpt E&m [facility] Mod-hi 4 [facility], [address], [place], [place], [address], [place] tel:[phone] /[facility] S/P right knee arthroscopyOb esity, unspecifiedCh ondromalacia of right kneeRight anterior knee painWork related injury 1 Perla Frausto. [address] [facility], [facility] [address], [place], [place], [address] , [place]. tel:[phone] Referring Provider: Jett Mcnulty, [address] [facility] [address], [place], [address] . tel:[phone] Offic/outpt E&m [facility], [address], [place], [place], [address], [place] tel:[phone] [facility] (R) knee injury (chief complaint) Right anterior knee painH/O fracture of patellaWork related injuryObesity , unspecified 0 Matt Montez. [address] [facility], [place], [place], [address] , [place]. tel:[phone] Referring Provider: Tc Mcdermott, [address] [facility] [address], [place], [address] . tel:[phone] Offic/outpt E&m [facility] Mod-hi 4 [facility], [address], [place], [place], [address], [place] tel:[phone] [facility] Obesity, unspecifiedS/ P right knee arthroscopy 0 Perla Frausto. [address], [place], [place], [address] , [place]. tel:[phone] Referring Provider: Jett Mcnulty, [address], [place], [address] . tel:[phone] Offic/outpt E&m Estab Mod-hi 4 [facility], [address], [place], [place], [address], [place] tel:[phone] [facility] S/P right knee arthroscopy 0 Perla Frausto. [address], [place], [place], [address] , [place]. tel:[phone] Referring Provider: Jett Mcnulty, [address], [place], [address] . tel:[phone] [facility], [address], [place], [place], [address], [place] tel:[phone] [facility] S/P right knee arthroscopy 0 Perla Frausto. [address], [place], [place], [address] , [place]. tel:[phone] Referring Provider: Jett Mcnulty, [address], [place], [address] . tel:[phone] [facility], [address], [place], [place], [address], [place] tel:[phone] [facility] Obesity, unspecifiedS/ P right knee arthroscopy 0 Perla Frausto. [address], [place], [place], [address] , [place]. [phone] Referring Provider: Jett Mcnulty, [address] [facility] [address], [place], [address] . tel:[phone] [facility], [address], [place], [place], [address], [place] tel:[phone] [facility] S/P right knee arthroscopy 0 Perla Frausto. [address] [facility] [address], [place], [place], [address] , [place]. tel:[phone] Referring Provider: Jett Mcnulty, [address] [facility] [address], [place], [address] . tel:[phone] [facility], [address] [address], [place], [place], [address], [place] tel:[phone] [facility] Surgery No Information 0 Perla Frausto. [address], [facility] [address], [place], [place], [address] , [place]. tel:[phone] Referring Provider: Jett Mcnulty, [address] [facility] [address], [place], [address] . tel:[phone] Offic/outpt E&m Estab Mod-hi 4 [facility], [address] [address], [place], [place], [address], [place] tel:[phone] [facility] Obesity, unspecifiedCu rrent peripheral tear of medial meniscus of right knee, initial encounterFrac ture of patella, sequela 0 Perla Frausto. [address], [facility] [address], [place], [place], [address] , [place]. tel:[phone] Referring Provider: Jett Mcnulty, [address] [facility] [address], [place], [address] . tel:[phone] Offic/outpt E&m Estab Mod-hi 2 [facility], [address] [address], [place], [place], [address], tel:[phone] [facility] Obesity, unspecifiedCu rrent peripheral tear of medial meniscus of right knee, initial encounterFrac ture of patella, sequela 0 Perla Frausto. [address] [facility], [place], [place], [address] , [place]. tel:[phone] Referring Provider: Jett Mcnulty, [address] [facility] [address], [place], [address] . tel:[phone] Offic/outpt E&m New Mod-hi 60 [facility], [address], [place], [place], [address], tel:[phone] [facility] Current peripheral tear of medial meniscus of right knee, initial encounterFrac ture of patella, sequelaObesit y, unspecified Jaciel- 0 Perla Frausto. [address] [facility], [facility] [address], [place], [place], [address] , [place]. tel:[phone] Referring Provider: Jett Mcnulty, [address] [facility] [address], [place], [address] . tel:[phone] Family History Family Member Type Diagnosis Age At Onset Sister Problem (finding) Cancer, unknown Mother Problem (finding) Cancer, unknown Mother Problem Cancer, unknown Payers Payer name Insurance type Covered democrat ID Breann ruiz(rell Oseguera [id number] Social History Type Description Quantity Date Captured Comments Alcohol Use Details No Caffeine Use Details Tobacco Use Status Ex-cigarette smoker 025 Smoking Status Former smoker Smoking Tobacco Use Details Cigarette: Age Stopped: 51 Cigarette: No Details Available Sex Male Vital Signs Date / Time: Height Weight BMI Pulse Rate Blood Pressure Temperature Respiratory Rate Body Surface Area Head Circumference Head Circ. Percentile Wt./Vern. Percentile BMI percentile Pulse Ox Inhaled Ox 4:02 PM 67.00 in 99.790 kg (220.00 lbs) 34.4 6 kg/m eter (2) Chief Complaint And Reason For Visit No [...] completed Referral Ordered: Rad Exam Shoulder; Comp Left shoulder ordered Referral Ordered: MRI Upper Extremity Other Than Joint W/O Cont. 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 He is here fwb with his sling. He rates his pain 8/10 described as achy and discomfroting. There is discomfort interrupting the patient's sleep at night. The patient denies any fevers or chills and midline neck pain. The patient continues to complain of persistent paresthesias in the left hand which is stable from his preoperative status. The patient has taken Percocet with benefit. [facility] and is complains pain is worse after PT. THIS IS WORKERS COMP left shoulder The patient is a 63 [...] left thumb and left knee done at [facility], patient was given naproxen 500. Of note patient also complains of cervical pain, left knee, and left thumb pain. 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 This is a W/C related injury. Patient status post right knee arthroscopic partial medial meniscectomy, 10/06/[address] Duncan. He was transferred by Dr. Duncan for continued care on his right knee since surgery. He was placed at [facility] on 02/10/2020 and given an 8% PIR. [...] benefit. Functional Status Date Functional Assessmen t Pain Score 7/10 Instructions Date Instruction Additional Infor sally Lifestyle [...] pain Patient was previous ly placed at [facility] by Dr. Duncan. He has been assigned [...] from Dr. Duncan.He will be placed at [facility]. He has an 8% whole person [...] to Obesity, unspecified Assessments Type Assessment Date assessment Obesity, unspecified assessment Arthritis of left acromioclavicu lar joint assessment Traumatic complete t ear of left rotator cuff, subsequent encounter assessment S/P arthroscopy of left shoulder Patient Care Teams Name Effective Dates (start - stop) Status Members No Information
== END 2024-09-21 16:46 | disposition home or self-care (01) ==
LOC: HO.HMCFM 14:36
PROVIDERS: PCP Internal Medicine; Visit Provider Internal Medicine
DX: I73.9 Peripheral vascular disease, unspecified (principal); L03.116 Cellulitis of left lower limb; R21 Rash and other nonspecific skin eruption

== ENCOUNTER → 2024-09-21 14:35 | Outpatient (BNVA) | payer OTHER, SELFPAY | PROVIDERS: PCP Internal Medicine; Visit Provider Internal Medicine | DX: L03.116 Cellulitis of left lower limb (principal); I73.9 Peripheral vascular disease, unspecified; R21 Rash and other nonspecific skin eruption; Z13.31 Encounter for screening for depression | CPT/HCPCS: 96127 ==

== ENCOUNTER 2024-09-28 13:12 | Outpatient (AMB) | payer OTHER, SELFPAY ==
--- OUTSIDE RECORDS SUMMARY | 2024-09-24 11:48 | XMS_ITS | Continuity of Care Document ---
Author Organization [facility] Address [address] [facility] [facility] [address] [place] [address] Phone Care Team Providers Care Salesperson Burial [employer] Name Role Phone Jett Duncan MD Unavailable [...] Procedures Procedure Date Offic/outpt E&m Estab Mod-hi 4 25 Postop F/u Visit Incld Global 5 Rad Exam Shoulder; Comp Postop F/u Visit Inc[facility] Global 5 Postop F/u Visit Inc[facility] Global 5 Postop F/u Visit [facility] Global 5 ARTHROSCOP ROTATOR CUFF RREPR 5 Scope Shldr Surg;dist Clavicul Arthroscpy Shldr; Decomp Subac Feb-03-20 25 Unlisted Procedure Arthroscopy 25 Platelet Rich Plasma PRP Injection Offic/outpt E&m Estab Mod-hi 4 25 Acromio/clavicular canvas&we Offic/outpt E&m Estab Mod-hi 4 25 Offic/outpt E&m Estab Mod-id 4 24 Offic/outpt E&m Estab Mod-id 2 24 Rad Exam Shoulder; Comp Offic/outpt E&m Estab Mod-hi 2 24 Rad Exam Knee; 4 View Offic/outpt E&m Estab Mod-hi 4 21 Offic/outpt E&m New Mod Sever 0 Offic/outpt E&m Estab Mod-id 4 20 Offic/outpt E&m Estab Mod-[facility] 20 Postop F/u Visit Incld Global 0 Postop F/u Visit Incld Global 0 Postop F/u Visit Incld Global 0 Arthros Knee; W/menisect (med/ 20 Offic/outpt E&m Estab Mod-id 4 20 Offic/outpt E&m Estab Mod-id 2 20 Offic/outpt E&m New Mod-hi 60 0 Advance Directives Directive Yes / No Effective Date File Name No Information Encounters Encounter Description Practice Location Reason(s) For Visit Diagnoses Date Provider Providers Copied on Encounter [facility], [facility] [address], [id number], tel:[phone] /[facility] No Information 5 Perla Frausto. [address] [place] [address], [id number] , [place]. tel:[phone] Offic/outpt E&m Estab Mod-id 4 [facility], [address], [id number], [place] tel:[phone] /[facility] Obesity, unspecifiedAr thritis of left acromioclavic ular jointTraumati c complete tear of left rotator cuff, subsequent encounterS/P arthroscopy of left shoulder 5 Perla Frausto. [address] [facility], [place], [place], [id number] , [place]. tel:[phone] Referring Provider: Jett Mcnulty, [address] [facility] [address], [place], [address] . tel:[phone] [facility], [address] [facility] [address], [place], [id number], [place] tel:[phone] /[facility] Obesity, unspecifiedS/ P arthroscopy of left shoulder 5 Perla Frausto. [address] [facility], [facility] [address], [place], [place], [id number] , [place]. tel:[phone] Referring Provider: Jett Mcnulty, [address] [facility] [address], [place], [address] . tel:[phone] [facility], [address] [facility] [address], [place], [id number], [place] tel:[phone] /[facility] S/P arthroscopy of left shoulderObesi ty, unspecified Jun- 5 Perla Frausto. [address] [facility], [facility] [address], [place], [place], [id number] , [place]. tel:[phone] Referring Provider: Jett Mcnulty, [address] [facility] [address], [place], [address] . tel:[phone] [facility], [address] [facility] [address], [place], [place], [id number], [place] tel:[phone] /[facility] S/p Left shoulder (chief complaint) Obesity, unspecifiedS/ P arthroscopy of left shoulder Fe 5 Jose Muniz . [address] [facility], [address] [place] [address], [id number] , [place]. tel:[phone] Referring Provider: Jett Mcnulty, [address] [facility] [address], [place], [address] . tel:[phone] [facility], [address] [facility] [address], [place], [place], [id number], [place] tel:[phone] /[facility] S/P arthroscopy of left shoulderObesi ty, unspecified 5 Perla Frausto. [address] [facility], [facility] [address], [place], [place], [id number] , [place]. tel:[phone] Referring Provider: Jett Mcnulty, [address] [facility] [address], [place], [address] . tel:[phone] [facility], [address] [address], [place], [place], [id number], tel:[phone] /[facility] No Information 5 Perla Frausto. [address] [facility], [facility] [address], [place], [place], [id number] , [place]. tel:[phone] Referring Provider: Jett Mcnulty, [address] [facility] [address], [place], [address] . tel:[phone] Offic/outpt E&m Estab Mod-hi 4 [facility], [address] [address], [place], [id number], [place] tel:[phone] /[facility] Obesity, unspecifiedAc jana pain of left shoulderArthr itis of left acromioclavic ular jointTraumati c complete tear of left rotator cuff, subsequent encounterRupt ure of left biceps tendon, initial encounter 5 Perla Frausto. [address] [facility], [facility] [address], [place], [place], [id number] , [place]. tel:[phone] Referring Provider: Jett Mcnulty, [address] [facility] [address], [place], [address] . tel:[phone] Offic/outpt E&m Estab Mod-hi 4 [facility], [address] [facility] [address], [place], [place], [id number], [place] tel:[phone] /[facility] Acute pain of left shoulderArthr itis of left acromioclavic ular jointRupture of left biceps tendon, initial encounterTrau matic complete tear of left rotator cuff, subsequent encounterObes ity, unspecified Jaciel-0 5 Perla Frausto. [address] [facility], [place], [place], [id number] , [place]. tel:[phone] Referring Provider: Jett Mcnulty, [address] [facility] [address], [place], [address] . tel:[phone] Offic/outpt E&m Estab Mod-hi 4 [facility], [address] [facility] [address], [place], [place], [id number], [place] tel:[phone] /[facility] Obesity, unspecifiedAc jana pain of left shoulderTraum atic complete tear of left rotator cuff, initial encounterRupt ure of left biceps tendon, initial encounterArth ritis of left acromioclavic ular joint Dec-0 4 Perla Frausto. [address] [facility], [facility] [address], [place], [place], [id number] , [place]. [phone] Referring Provider: Jett Mcnulty, [address] [facility] [address], [place], [address] . tel:[phone] Offic/outpt E&m Estab Mod-hi 2 [facility], [address] [facility], [place], [place], [id number], [place] tel:[phone] /[facility] left shoulder (chief complaint) Acute pain of left shoulder 4 Jose Muniz . [address] [facility], [address], [place], [place], [id number] , [place]. tel:[phone] Referring Provider: Flavio Garcia, [address] [facility] [address], [place], [address] . tel:[phone] Offic/outpt E&m [facility] Mod-hi 2 [facility], [address] [facility], [place], [place], [id number], [place] tel:[phone] /[facility] Left shoulder (chief complaint) Acute pain of left shoulderObesi ty, unspecified 4 Jose Muniz . [address] [facility], [address], [place], [place], [id number] , [place]. tel:[phone] Referring Provider: Flavio Garcia, [address] [facility] [address], [place], [address] . tel:[phone] Offic/outpt E&m [facility] Mod-hi 4 [facility], [address] [address], [place], [place], [id number], [place] tel:[phone] /[facility] S/P right knee arthroscopyOb esity, unspecifiedCh ondromalacia of right kneeRight anterior knee painWork related injury 1 Perla Frausto. [address] [facility], [address], [id number] , [place]. tel:[phone] Referring Provider: Jett Mcnulty, [address] [address], [place], [address] . tel:[phone] Offic/outpt E&m [facility], [address] [facility] [address], [place], [place], [id number], [place] tel:[phone] [facility] (R) knee injury (chief complaint) Right anterior knee painH/O fracture of patellaWork related injuryObesity , unspecified 0 Matt Montez. [address] [facility], [place], [place], [id number] , [place]. [phone] Referring Provider: Tc Mcdermott, [address] [facility] [address], [place], [address] . tel:[phone] Offic/outpt E&m Estab Mod-hi 4 [facility], [address], [place], [place], [id number], [place] tel:[phone] [facility] Obesity, unspecifiedS/ P right knee arthroscopy 0 Perla Frausto. [address] [facility], [facility] [address], [place], [place], [address] , [place]. tel:[phone] Referring Provider: Jett Mcnulty, [address] [facility], [place], [address] . tel:[phone] Offic/outpt E&m Estab Mod-hi 4 [facility], [address] [facility], [place], [place], [id number], [place] tel:[phone] [facility] S/P right knee arthroscopy 0 Perla Frausto. [address] [facility], [facility] [address], [place], [place], [id number] , [place]. tel:[phone] Referring Provider: Jett Mcnulty, [address] [address], [place], [address] . tel:[phone] [facility], [address] [facility] [address], [place], [place], [id number], [place] tel:[phone] [facility] S/P right knee arthroscopy 0 Perla Frausto. [address] [facility], [facility] [address], [place], [place], [address] , [place]. tel:[phone] Referring Provider: Jett Mcnulty, [address] [facility], [place], [address] . tel:[phone] [facility], [address], [place], [place], [address], [place] tel:[phone] [facility] Obesity, unspecifiedS/ P right knee arthroscopy 0 Perla Frausto. [address] [facility], [facility] [address], [place], [place], [id number] , [place]. tel:[phone] Referring Provider: Jett Mcnulty, [address] [address], [place], [address] . tel:[phone] [facility], [address] [address], [place], [place], [id number], [place] tel:[phone] [facility] S/P right knee arthroscopy 0 Perla Frausto. [address] [facility], [facility] [address], [place], [place], [address] , [place]. tel:[phone] Referring Provider: Jett Mcnulty, [address] [address], [place], [address] . tel:[phone] [facility], [address], [id number], [place] tel:[phone] [facility] No Information 0 Perla Frausto. [address] [facility], [address] [address], [place], [place], [id number] , [place]. tel:[phone] Referring Provider: Jett Mcnulty, [address] [address], [place], [address] . tel:[phone] Offic/outpt E&m Estab Mod-hi 4 [facility], [address] [address], [place], [place], [id number], [place] tel:[phone] [facility] Obesity, unspecifiedCu rrent peripheral tear of medial meniscus of right knee, initial encounterFrac ture of patella, sequela 0 Perla Frausto. [address] [facility], [facility] [address], [place], [place], [address] , [place]. tel:[phone] Referring Provider: Jett Mcnulty, [address] [address], [place], [address] . tel:[phone] Offic/outpt E&m Estab Mod-hi 2 [facility], [address] [facility] [address], [place], [place], [address], [place] tel:[phone] [facility] Obesity, unspecifiedCu rrent peripheral tear of medial meniscus of right knee, initial encounterFrac ture of patella, sequela 0 Perla Frausto. [address] [facility], [facility] [address], [place], [place], [address] , [place]. tel:[phone] Referring Provider: Jett Mcnulty, [address] [facility] [address], [place], [address] . tel:[phone] Offic/outpt E&m [facility] Mod-hi 60 [facility], [address] [facility] [address], [place], [place], [address], [place] tel:[phone] [facility] Current peripheral tear of medial meniscus of right knee, initial encounterFrac ture of patella, sequelaObesit y, unspecified 0 Perla Frausto. [address] [facility], [facility] [address], [place], [place], [address] , [place]. tel:[phone] Referring Provider: Jett Mcnulty, [address] [facility] [address], [place], [address] . 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 Of note patient also complains of cervical pain, left knee, and left thumb pain. 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 This [...] surgery. Dr. Duncan feels he is reached [facility]. Related to Right anterior knee pain Patient was previous ly placed at [facility] by Dr. Duncan. He has [...] from Dr. Duncan.He will be placed at [facility]. He has an 8% whole [...]
--- NOTE | 2024-09-28 13:20 | A.OFFPC_ITS ---
Vital Signs 09/28/24 13:21 BMI Reason not done Patient refused/unable BP 136/80 Blood Pressure Location Lt brachial Position Sitting Respiration 14 Pulse 68 Pulse Source Pulse Oximeter Temp 98.3 F Temp Source Oral Pulse Oximetry (%) 92 Oxygen Delivery Method Room Air Intake Visit Reasons: cpe - see comments Intake Note: Cellulits check up Wax Pot Tender Required: No Allergies No Known Allergies Allergy (Verified 09/28/24 13:20) Tobacco use date assessed: 09/21/24 Dental Screening Dental Screen Date: 09/13/24 HPI HPI Comments History of Present Illness Details 64 year old male with a past medical his tory of 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 This has improved greatly-we repeated his round of keflex. Denies fevers. Has been using cream from [facility] for dermatitis. He has a vascular appt scheduled for October 05. Continued rash bilateral feet and ankle, lower leg left>right. Tender, slightly itchy. Circular and petechial in areas. Tried oral prednisone with some relief on feet otherwise no improvement. Topical steroid has not been working MSK: Underwent spinal cord fusion at [facility], then went to [facility]. Gets home health evaluations once annually. On gabapentin, baclofen pump. Follows with physiatry Dr Jett [place] Nursing comes in once every 3 weeks to refill the baclofen pump. Urology: On tamsulosin Colon cancer: cologuard + 2022 followed by colonoscopy 2022/2023 which he tells me was normal Tdap: within 10 year Shingrix: plans to get at pharmacy ROS see HPI PHYSICAL EXAM: GENERAL: Alert and oriented x 3. NAD EYES: EOMI. Anicteric. HENT: Moist mucous membranes. No scleral icterus. No cervical lymphadenopathy. LUNGS: Clear to auscultation bilaterally. CARDIOVASCULAR: Regular rate and rhythm. No murmur. No JVD. ABDOMEN: Soft, non-tender +bs EXTREMITIES: receding but still persistent cellulitic changes. Underlying peripheral vascular changes NEUROLOGIC: No focal neurological deficits. CN II-XII grossly intact PSYCHIATRIC: Cooperative. Appropriate mood and affect [facility] Family History Brother Alcoholic Asthma Father Alcoholic Asthma Mother Asthma Social History Housing: House Alcohol intake: current Patient Tobacco Use Status: Former Tobacco user Tobacco use type: Cigarette Cigarettes Per Day: 20 Years Smoked: 30 e-Cigarette/Vaping Use: Never Used Second Hand Smoke Exposure: No Substance Use Type: Marijuana service: No Current occupational status: retired Cognitive needs: No Hearing needs: No Vision needs: Yes (glasses) Questionnaire Thrive Questionnaire Date Thrive assessed: 04/17/24 I am a: Patient What is your living situation today?: I have a steady place to live Within the past 12 months, did the food you bought not last and you didn't have the money to get more?: Never true Within the past 12 months, did you worry whether your food would run out before you got money to buy more?: Never true Do you have trouble paying for medicines?: No Do you have trouble getting transportation to medical appointments?: No Do you have trouble paying your heating and electricity bill?: No Do you have trouble taking care of your child, family member or friend?: No Do you have trouble with day-to-day activities such as bathing, preparing meals, shopping, managing finances, etc.?: No Are you currently unemployed and looking for a job?: No Are you interested in more education?: No Please select the resources that you would like help with: None Currently or been in a relationship where the following occur: No concerns r eported THRIVE Score: 0 MARICHUY-7 AMB Questionnaire MARICHUY-7 Date MARICHUY - 7 assessed: 03/29/24 Source: Developed by Drs. Farzad Robbins, Ewa Arana, Jayy Zaragoza and colleagues, with an educational ke from [employer]. Physical exam (Primary Care) Vital Signs: Last Vital Signs Temp 98.3 F 09/28/24 13:21 Pulse 68 09/28/24 13:21 Resp 14 09/28/24 13:21 BP 136/80 09/28/24 13:21 Pulse Ox 92 09/28/24 13:21 Oxygen Delivery Method Room Air 09/28/24 13:21 Tobacco/Smoking Status: Tobacco use Status Tobacco use date assessed 09/21/24 09/28/24 13:25 Patient Tobacco Use Status Former Tobacco user 09/28/24 13:25 Tobacco use type Cigarette 09/28/24 13:25 e-Cigarette/Vaping Use Never Used 09/28/24 13:25 Thrive Assessment: Date of Thrive Assessment Date Thrive assessed 04/17/24 09/28/24 13:25 Currently or been in a relationship where the following occur: No concerns reported Coding Level of Care Code Est Pt Prev Care 40-64y(12078) Diagnoses Physical exam Z00.00 Left leg cellulitis L03.116 Peripheral vascular disease I73.9 Assessment & Plan Assessment & Plan (1) Physical exam: Code(s): Z00.00 - Encounter for general adult medical examination without abnormal findings Category: Medical (2) Left leg cellulitis: Code(s): L03.116 - Cellulitis of left lower limb Category: Medical (3) Peripheral vascular disease: Code(s): I73.9 - Peripheral vascular disease, unspecified Category: Medical Plan 64 year old male for CPE BPH-stable on tamsulosin. chronic cath. Chronic pain/spasm due to spinal cord injury. Does well on baclofen pump and gabapentin Tinea cruris. lotrisone ordered Labs ordered. Coloscopy utd per patient. Orders: Orders Comprehensive Met. Panel Today I73.9 - Peripheral vascular disease, unspecified, Z00.00 - Encounter for general adult medical examination without abnormal findings, Z12.11 - Encounter for screening for malignant neoplasm of colon, Z87.828 - Personal history of other (healed) physical injury and trauma Lipid Panel Today I73.9 - Peripheral vascular disease, unspecified, Z00.00 - Encounter for general adult medical examination without abnormal findings, Z12.11 - Encounter for screening for malignant neoplasm of colon, Z87.828 - Personal history of other (healed) physical injury and trauma Complete Blood Count Auto Diff Today I73.9 - Peripheral vascular disease, unspecified, Z00.00 - Encounter for general adult medical examination without abnormal findings, Z12.11 - Encounter for screening for malignant neoplasm of colon, Z87.828 - Personal history of other (healed) physical injury and trauma Hemoglobin A1c Today I73.9 - Peripheral vascular disease, unspecified, Z00.00 - Encounter for general adult medical examination without abnormal findings, Z12.11 - Encounter for screening for malignant neoplasm of colon, Z87.828 - Personal history of other (healed) physical injury and trauma Vitamin B12 and Folate Today I73.9 - Peripheral vascular disease, unspecified, Z00.00 - Encounter for general adult medical examination without abnormal findings, Z12.11 - Encounter for screening for malignant neoplasm of colon, Z87.828 - Personal history of other (healed) physical injury and trauma Medications: New clotrimazole-betamethasone 1-0.05 % 1 appl topical BID 45 grams 3RF 4 weeks
[2024-09-28 13:21] VITALS: BP 136/80; PULSE 68; RESP 14; TEMP 36.8; O2SAT 92
== END 2024-09-28 13:43 | disposition home or self-care (01) ==
LOC: HO.HMCFM 13:13
PROVIDERS: PCP Internal Medicine; Visit Provider Internal Medicine
DX: Z00.00 Encounter for general adult medical examination without abnormal findings (principal); L03.116 Cellulitis of left lower limb; I73.9 Peripheral vascular disease, unspecified

== ENCOUNTER 2024-10-12 13:26 | Outpatient (AMB) | payer OTHER, SELFPAY ==
--- OUTSIDE RECORDS SUMMARY | 2024-09-24 11:48 | XMS_ITS | Continuity of Care Document ---
Author Organization [facility] Address [address] [place] [address] Phone Care Team Providers Care Egg Tester Name Role Phone Jett Duncan MD Unavailable [...] Estab Mod-hi 4 25 Offic/outpt E&m Estab Mod-ok 4 24 Offic/outpt E&m Estab Mod-ok 2 24 Rad Exam Shoulder; Comp Offic/outpt E&m Estab Mod-hi 2 24 Rad Exam Knee; 4 View Offic/outpt E&m Estab Mod-hi 4 21 Offic/outpt E&m New Mod Sever 0 Offic/outpt E&m Estab Mod-ok 4 20 Offic/outpt E&m Estab Mod-[facility] 20 Postop F/u Visit Incld Global 0 Postop F/u Visit Incld Global 0 Postop F/u Visit Incld Global 0 Arthros Knee; W/menisect (med/ 20 Offic/outpt E&m Estab Mod-ok 4 20 Offic/outpt E&m Estab Mod-ok 2 20 Offic/outpt E&m New Mod-hi 60 0 Advance Directives Directive Yes / No Effective Date File Name No Information Encounters Encounter Description Practice Location Reason(s) For Visit Diagnoses Date Provider Providers Copied on Encounter [facility], [facility], [id number], tel:[phone] /[facility] No Information 5 Perla Frausto. [address] [place] [address], [id number] , [place]. tel:[phone] Offic/outpt E&m Estab Mod-ok 4 [facility], [address], [id number], [place] tel:[phone] /[facility] Obesity, unspecifiedAr thritis of left acromioclavic ular jointTraumati c complete tear of left rotator cuff, subsequent encounterS/P arthroscopy of left shoulder 5 Perla Frausto. [address] [facility], [place], [place], [address] , [place]. tel:[phone] Referring Provider: Jett Mcnulty, [address], [place], [address] . tel:[phone] [facility], [address], [place], [place], [address], [place] tel:[phone] /[facility] Obesity, unspecifiedS/ P arthroscopy of left shoulder 5 Perla Frausto. [address] [facility], [facility] [address], [place], [place], [id number] , [place]. tel:[phone] Referring Provider: Jett Mcnulty, [address] [facility] [address], [place], [address] . tel:[phone] [facility], [address] [address], [place], [place], [id number], [place] tel:[phone] /[facility] S/P arthroscopy of left shoulderObesi ty, unspecified Jun- 5 Perla Frausto. [address] [facility], [facility] [address], [place], [place], [id number] , [place]. tel:[phone] Referring Provider: Jett Mcnulty, [address], [place], [address] . tel:[phone] [facility], [address], [place], [place], [address], [place] tel:[phone] /[facility] S/p Left shoulder (chief complaint) Obesity, unspecifiedS/ P arthroscopy of left shoulder Fe 5 Jose Muniz . [address] [facility], [address] [place] [address], [id number] , [place]. tel:[phone] Referring Provider: Jett Mcnulty, [address] [facility] [address], [place], [address] . tel:[phone] [facility], [address] [facility] [address], [place], [place], [address], [place] tel:[phone] /[facility] S/P arthroscopy of left shoulderObesi ty, unspecified 5 Perla Frausto. [address] [facility], [facility] [address], [place], [place], [address] , [place]. tel:[phone] Referring Provider: Jett Mcnulty, [address] [facility] [address], [place], [address] . tel:[phone] [facility], [address] [address], [place], [place], [address], tel:[phone] /[facility] No Information 5 Perla Frausto. [address] [facility], [facility] [address], [place], [place], [address] , [place]. tel:[phone] Referring Provider: Jett Mcnulty, [address] [facility] [address], [place], [address] . tel:[phone] Offic/outpt E&m Estab Mod-hi 4 [facility], [address] [address], [place], [place], [address], [place] tel:[phone] /[facility] Obesity, unspecifiedAc jana pain of left shoulderArthr itis of left acromioclavic ular jointTraumati c complete tear of left rotator cuff, subsequent encounterRupt ure of left biceps tendon, initial encounter 5 Perla Frausto. [address] [facility], [facility] [address], [place], [place], [id number] , [place]. tel:[phone] Referring Provider: Jett Mcnulty, [address] [facility] [address], [place], [address] . tel:[phone] Offic/outpt E&m Estab Mod-hi 4 [facility], [address], [place], [place], [address], [place] tel:[phone] /[facility] Acute pain of left shoulderArthr itis of left acromioclavic ular jointRupture of left biceps tendon, initial encounterTrau matic complete tear of left rotator cuff, subsequent encounterObes ity, unspecified Jaciel-0 5 Perla Frausto. [address] [facility], [address], [place], [place], [id number] , [place]. tel:[phone] Referring Provider: Jett Mcnulty, [address] [facility] [address], [place], [address] . tel:[phone] Offic/outpt E&m Estab Mod-hi 4 [facility], [address] [facility] [address], [place], [place], [address], [place] tel:[phone] /[facility] Obesity, unspecifiedAc jana pain of left shoulderTraum atic complete tear of left rotator cuff, initial encounterRupt ure of left biceps tendon, initial encounterArth ritis of left acromioclavic ular joint Dec-0 4 Perla Frausto. [address] [facility], [facility] [address], [place], [place], [address] , [place]. [phone] Referring Provider: Jett Mcnulty, [address] [facility] [address], [place], [address] . tel:[phone] Offic/outpt E&m Estab Mod-hi 2 [facility], [address], [place], [place], [address], [place] tel:[phone] /[facility] left shoulder (chief complaint) Acute pain of left shoulder 4 Jose Muniz . [address] [facility], [address], [place], [place], [address] , [place]. tel:[phone] Referring Provider: Flavio Garcia, [address] [facility] [address], [place], [address] . tel:[phone] Offic/outpt E&m [facility] Mod-hi 2 [facility], [address], [place], [place], [address], [place] tel:[phone] /[facility] Left shoulder (chief complaint) Acute pain of left shoulderObesi ty, unspecified 4 Jose Muniz . [address] [facility], [address], [place], [place], [address] , [place]. tel:[phone] Referring Provider: Flavio Garcia, [address] [facility] [address], [place], [address] . tel:[phone] Offic/outpt E&m [facility] Mod-hi 4 [facility], [address] [address], [place], [place], [address], [place] tel:[phone] /[facility] S/P right knee arthroscopyOb esity, unspecifiedCh ondromalacia of right kneeRight anterior knee painWork related injury 1 Perla Frausto. [address] [facility], [address], [id number] , [place]. tel:[phone] Referring Provider: Jett Mcnulty, [address] [address], [place], [address] . tel:[phone] Offic/outpt E&m [facility], [address] [facility] [address], [place], [place], [id number], [place] tel:[phone] [facility] (R) knee injury (chief complaint) Right anterior knee painH/O fracture of patellaWork related injuryObesity , unspecified 0 Matt Montez. [address] [facility], [place], [place], [address] , [place]. [phone] Referring Provider: Tc Mcdermott, [address] [facility] [address], [place], [address] . tel:[phone] Offic/outpt E&m Estab Mod-hi 4 [facility], [address], [place], [place], [address], [place] tel:[phone] [facility] Obesity, unspecifiedS/ P right knee arthroscopy 0 Perla Frausto. [address] [facility], [facility] [address], [place], [place], [address] , [place]. tel:[phone] Referring Provider: Jett Mcnulty, [address], [place], [address] . tel:[phone] Offic/outpt E&m Estab Mod-hi 4 [facility], [address], [place], [place], [address], [place] tel:[phone] [facility] S/P right knee arthroscopy [address], [facility] [address], [place], [place], [address] , [place]. tel:[phone] Referring Provider: Jett Mcnulty, [address] [address], [place], [address] . tel:[phone] [facility], [address] [facility] [address], [place], [place], [address], [place] tel:[phone] [facility] S/P right knee arthroscopy [address], [facility] [address], [place], [place], [address] , [place]. tel:[phone] Referring Provider: Jett Mcnulty, [address], [place], [address] . tel:[phone] [facility], [address], [place], [place], [address], [place] tel:[phone] [facility] Obesity, unspecifiedS/ P right knee arthroscopy 0 Perla Frausto. [address] [facility], [facility] [address], [place], [place], [address] , [place]. tel:[phone] Referring Provider: Jett Mcnulty, [address] [address], [place], [address] . tel:[phone] [facility], [address] [address], [place], [place], [address], [place] tel:[phone] [facility] S/P right knee arthroscopy 0 Perla Frausto. [address] [facility], [facility] [address], [place], [place], [address] , [place]. tel:[phone] Referring Provider: Jett Mcnulty, [address] [address], [place], [address] . tel:[phone] [facility], [address], [id number], [place] tel:[phone] [facility] No Information 0 Perla Frausto. [address] [facility], [address] [address], [place], [place], [address] , [place]. tel:[phone] Referring Provider: Jett Mcnulty, [address] [address], [place], [address] . tel:[phone] Offic/outpt E&m Estab Mod-hi 4 [facility], [address] [address], [place], [place], [address], [place] tel:[phone] [facility] Obesity, unspecifiedCu rrent peripheral tear of medial meniscus of right knee, initial encounterFrac ture of patella, sequela 0 Perla Frausto. [address] [facility], [facility] [address], [place], [place], [address] , [place]. tel:[phone] Referring Provider: Jett Mcnulty, [address] [address], [place], [address] . tel:[phone] Offic/outpt E&m Estab Mod-hi 2 [facility], [address], [place], [place], [address], [place] tel:[phone] [facility] Obesity, unspecifiedCu rrent peripheral tear of medial meniscus of right knee, initial encounterFrac ture of patella, sequela 0 Perla Frausto. [address] [facility], [facility] [address], [place], [place], [address] , [place]. tel:[phone] Referring Provider: Jett Mcnulty, [address] [facility] [address], [place], [address] . tel:[phone] Offic/outpt E&m [facility] Mod-hi 60 [facility], [address] [facility] [address], [place], [place], [address], [place] tel:[phone] [facility] Current peripheral tear of medial meniscus of right knee, initial encounterFrac ture of patella, sequelaObesit y, unspecified 0 Perla Frausto. [address] [facility], [facility] [address], [place], [place], [address] , [place]. tel:[phone] Referring Provider: Jett Mcnulty, [address] [facility] [address], [place], [address] . tel:[phone] Family History Family Member Type Diagnosis Age At Onset Mother Problem (finding) Cancer, unknown Mother Problem Cancer, unknown Sister Problem (finding) Cancer, unknown Payers Payer name Insurance type Covered alliance party ID Authoriza tion(s) No Information Social [...] Shoulder; Comp Left shoulder ordered Referral Ordered: Rad Exam Shoulder; Comp ordered Referral Ordered: MRI Upper Extremity Other Than Joint W/O Cont. 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 Of note patient also complains of cervical pain, left knee, and left thumb pain. 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 This [...] surgery. Dr. Duncan feels he is reached [facility]. Related to Right anterior knee pain Patient was previous ly placed at [facility] by Dr. Duncan. He has been [...] from Dr. Duncan.He will be placed at [facility]. He has an 8% whole person [...]
--- NOTE | 2024-10-12 13:31 | MHC.OFFVIS ---
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 Left leg. Patient was given two rounds of cephalexin in the last month. Patient states it is much better now. 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 The patient has experienced recurrent bouts of cellulitis, having undergone two rounds of cefalexin treatment. The cellulitis primarily affects the left leg, which has shown some skin changes and darkness. The patient reports that the condition has improved significantly with antibiotic therapy. The patient has a history of a fall in 2018 that led to spinal cord injury, which subsequently led to the cessation of smoking, having previously smoked a pack a day. He wears AFO braces and is ambulatory, capable of performing daily activities such as making beds and transferring without assistance. The patient has no history of diabetes and denies any issues with the right leg. 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 Complaints include pain over varicosities, swelling of lower extremities, and recurrent bouts of cellulitis. It has been affecting there daily activities including walking but he tends to use the wheelchair more. It is noted more so in left leg. Patient denies any previous venous surgery or injections. Patient denies any history of DVT/ PE. Patient denies any history of phlebitis. Trial of compression includes - [id number] They now present for vascular evaluation regarding their varicose veins. [facility]LY [facility], [facility] Family History Brother Alcoholic Asthma Father Alcoholic Asthma Mother Asthma Social History Housing: House Alcohol intake: current Patient Tobacco Use Status: Former Tobacco user Tobacco use type: Cigarette Cigarettes Per Day: 20 Years Smoked: 30 e-Cigarette/Vaping Use: Never Used Second Hand Smoke Exposure: No Substance Use Type: Marijuana service: No Current occupational status: retired Cognitive needs: No Hearing needs: No Vision needs: Yes (glasses) Review of Systems Const Reports as per HPI ENT Reports no additional complaints Card Denies chest pain, Denies chest pain at rest and Denies chest pain with activity Resp Denies chest congestion and Denies cough GI Reports no additional complaints Musc Details: pain over varicosities, aching of lower extremities, swelling, cramping, heaviness and tiredness, itching Denies abnormal gait Skin/Breast Reports pruritus and Denies wounds Neuro Reports no additional complaints and Denies abnormal gait Psych Denies no additional complaints Physical Exam Const General: cooperative, healthy appearing and comfortable Orientation/consciousness: oriented to person, oriented to place and oriented to time Neck Carotids: no bruits Chest Chest palpation & inspection: normal inspection of the chest and normal palpation of entire chest wall Resp Effort & Inspection: normal respiratory effort and able to speak in complete sentences Cardio Other: Bilateral palpable dorsalis pedis pulses Rate: regular rate Heart sounds: S1 normal heart sound present and S2 normal heart sound present Peripheral pulses: Peripheral pulses 2+ throughout GI Inspection: Yes normal to inspection Skin Other: +2 edema, large rope-like varicosities greater than 4 mm CEAP Classification C4 - skin color changes - left medial ankle with evidence of previous cellulitis that appears to be improving Ep - Etiology Primary As - superficial veins P - reflux General skin exam: dry skin Neuro General: oriented to person, oriented to place and oriented to time Extrem Right lower extremity: full ROM, normal capillary refill and edema Left lower extremity: full ROM, normal capillary refill and edema Psych Mental Status: mental status grossly normal Assessment & Plan Assessment & Plan (1) Varicose veins of left lower extremity with inflammation: Code(s): I83.12 - Varicose veins of left lower extremity with inflammation Category: Medical Plan: In short, the patient has evidence of venous insufficiency. I have discussed the pathophysiology with the patient. In addition I have provided informational material regarding venous disease to the patient. We have discussed conservative measures including compression, elevation, and exercise. I have also provided a handout regarding appropriate use of compression stockings and where to purchase good compression stockings as well. I have taken the liberty of ordering venous insufficiency testing with the patient. They will follow up with me after testing. The patient had an opportunity to ask questions regarding the treatment plan. All questions were answered. Imaging studies, laboratory studies and physical exam results were discussed and reviewed in detail. No major barriers to understanding were identified. The patient expressed understanding and agreement with the above treatment plan. The patient is aware they should contact our office by phone for worsening of the current condition or the appearance of new symptoms. Thank you for allowing me to participate in the vascular care of this patient. If you have any questions or concerns regarding the treatment for the above condition please do not hesitate to contact me. The office telephone contact is [phone]. This note is constructed using voice recognition software. While every effort has been made to ensure accuracy, cigarette stamper errors may have been included. Thank you for allowing me to participate in the care of your patient. Yours sincerely, Joshua Campos MD, FACS, R.P.V.I. Orders: Orders US venous duplex LE BI 1 Week I83.12 - Varicose veins of left lower extremity with inflammation Coding Level of Care Code New Pt Level 4 (39300) Diagnoses Varicose veins of left lower extremity with inflammation I83.12
--- OUTSIDE RECORDS SUMMARY | 2024-10-12 14:10 | XMS_ITS | Clinical Summary ---
Author Organization [facility] Address [address] [place] [address] Care Team Providers Care Soap Drier Tender Name Role Phone Unavailable Primary Care Provider [...] patient's age to complete this topic Insurance [facility] [place] [facility]
== END 2024-10-12 13:53 | disposition home or self-care (01) ==
LOC: HO.HVS 13:27
PROVIDERS: PCP Internal Medicine; Visit Provider Surgery Vascular Surgery
DX: I83.12 Varicose veins of left lower extremity with inflammation (principal)
CPT/HCPCS: 99204

== ENCOUNTER 2024-11-09 10:20 | Outpatient (REF) | payer OTHER, SELFPAY ==
--- NOTE | ~2024-11-09 | US_ITS ---
EXAMINATION: US LOWER EXTREMITY VENOUS (REFLUX EXAM), BILATERAL CLINICAL INFORMATION: I83.12 - Varicose veins of left lower extremity with inflammation COMPARISON: None. TECHNIQUE: Color flow triplex imaging and compression Doppler was performed to evaluate both the deep and the superficial systems bilaterally. To evaluate the superficial system, the examination was performed in the upright position. Color-flow Doppler ultrasound and compression ultrasound were utilized. In addition, maneuvers were utilized to demonstrate reflux. EXAMINATION: US LOWER EXTREMITY VENOUS (REFLUX EXAM), BILATERAL CLINICAL INFORMATION: Varicose veins of the right lower extremity with inflammation COMPARISON: None. TECHNIQUE: Color flow triplex imaging and compression Doppler was performed to evaluate both the deep and the superficial systems bilaterally. To evaluate the superficial system, the examination was performed in the upright position. Color-flow Doppler ultrasound and compression ultrasound were utilized. In addition, maneuvers were utilized to demonstrate reflux. FINDINGS: 1. DEEP VENOUS ULTRASOUND OF THE RIGHT LOWER EXTREMITY: Common Femoral Vein: Compressible, normal respiratory variation and augmented flow. Femoral Vein: Compressible, normal color flow and augmentation. Popliteal Vein: Compressible, normal augmentation. Deep Reflux: There is no evidence of reflux in the deep system in either the common femoral vein, superficial femoral or the popliteal vein. 2. SUPERFICIAL ULTRASOUND WITH DOPPLER OF RIGHT LOWER EXTREMITY: Saphenofemoral Junction0: .8 cm; Reflux: 0 ms Proximal Thigh: 0.2 cm; Reflux: 0 ms Mid Thigh: 0.2 cm; Reflux: 0 ms Distal Thigh: 0.1 cm; Reflux: 0 ms At Knee: 0.1 cm; Reflux: 0 ms Proximal Calf: 0.3 cm; Reflux: 0 ms Mid Calf: 0.1 cm; Reflux: 0 ms Distal Calf: 0.2 cm; Reflux: 0 ms Lateral accessory GREAT SAPHENOUS VEIN: Saphenofemoral Junction: 0.2 cm; Reflux: 0 ms Mid Thigh: 0.1 cm; Reflux: 0 ms SMALL SAPHENOUS VEIN: Drainage: Popliteal vein Saphenopopliteal Junction: 0.4 cm; Reflux: 0 ms Mid calf: 0.4 cm; Reflux: 0 ms Distal: 0.3 cm; Reflux: 0 ms VEIN OF GIACOMINI: Size: NA cm Reflux: NA ms PERFORATORS: Location: Greater saphenous vein, proximal calf Size: 0.3 cm Reflux: 0 ms Location: Greater saphenous vein, mid calf Size: 0.4 cm Reflux: 0 ms VARICOSITIES > 3mm: Location: Greater saphenous vein, maximal thigh Size: 0.4 cm Reflux: 0 ms Location: There is some scarring, midcalf Size: 0.3 cm Reflux: 0 ms 3. DEEP VENOUS ULTRASOUND OF THE LEFT LOWER EXTREMITY: Soft tissues: There are 2 spindle-shaped masses in the superficial subcutaneous soft tissues in the mid thigh. There are mildly hypoechoic. One measures 2.5 x 0.7 x 1.4 cm and the other measures 3.1 x 0.7 x 1.7 cm. Common Femoral Vein: Compressible, normal respiratory variation and augmented flow. Femoral Vein: Compressible, normal color flow and augmentation. Popliteal Vein: Compressible, normal augmentation. Deep Reflux: Popliteal vein = 2200 ms 4. SUPERFICIAL ULTRASOUND WITH DOPPLER OF LEFT LOWER EXTREMITY: GREAT SAPHENOUS VEIN: Saphenofemoral Junction: 0.9 cm; Reflux: 0 ms Proximal Thigh: 0.4 cm; Reflux: 0 ms Mid Thigh: 0.4 cm; Reflux: 0 ms Distal Thigh: 0.4 cm; Reflux: 0 ms At Knee: 0.4 cm; Reflux: 0 ms Below Knee/Proximl calf: 0.3 cm; Reflux: 0 ms Mid Calf: 0.1 cm; Reflux: 0 ms Distal Calf/Ankle: 0.2 cm; Reflux: 576 ms Lateral accessory GREAT SAPHENOUS VEIN: Saphenofemoral Junction: 0.3 cm; Reflux: 0 ms Mid Thigh: 0.2 cm; Reflux: 0 ms SMALL SAPHENOUS VEIN: Drainage: Optimal vein Saphenopopliteal Junction: 0.1 cm; Reflux: 0 ms Mid calf: 0.2 cm; Reflux: 0 ms Distal calf: 0.2 cm; Reflux: 0 ms VEIN OF GIACOMINI: Size: NA Reflux: NA PERFORATORS: Location: Greater saphenous vein, mid thigh, to varicosity Size: 0.2 cm Reflux: 0 ms Location: Greater saphenous vein, proximal calf Size: 0.2 cm Reflux: 0 ms Location: Greater saphenous vein, proximal calf Size: 0.3 cm Reflux: 0 ms Location: Greater saphenous vein, proximal calf Size: 0.4 cm Reflux: 0 ms VARICOSITIES > 3mm: Location: Greater saphenous vein, proximal thigh Size: 0.3 cm Reflux: 0 ms Location: Greater saphenous vein, knee Size: 0.3 cm Reflux: 0 ms Location: Greater saphenous vein, distal calf Size: 0.3 cm Reflux: 0 ms US/US venous insuf bilat IMPRESSION: Right: No venous reflux is demonstrated. Left: Venous incompetence was demonstrated in the popliteal vein and greater saphenous vein at the ankle. There are 2 small masses in the superficial subcutaneous soft tissues the mid left thigh. Ultrasound is nonspecific, but they could represent lipomas. Correlate with history and physical examination to determine if further radiologic workup using MRI is indicated. Electronically signed by: Marcel Sepulveda MD 11/09/2024 11:47 AM EDT
--- OUTSIDE RECORDS SUMMARY | 2024-11-09 10:59 | XMS_ITS | Clinical Summary ---
Author Organization [facility] Address [address] [place] [address] Care Team Providers Care Trimmer Sorter Name Role Phone Unavailable Primary Care Provider [...] patient's age to complete this topic Insurance [facility] [place] [facility]
--- OUTSIDE RECORDS SUMMARY | 2024-11-09 10:59 | XMS_ITS | Encounter Summary ---
Author Organization [facility] Address [address] [place] [phone] Phone Care Team Providers Care Capper Machine Operator Name Role Phone Unknown, Unknown Primary Care Provider Farzad Urias MD Unavailable [phone] Vijay Bravo DO Primary Care Provider [phone] Reason for Visit * Reason Comments Medication Refill Encounter Details Date Type Department Care Team (Late st Contact Info) Description 02/11/2020 Refill [facility] [address] [address] Jett Reed DO [address] [place] [address] [email or web address] Medication Refill Social History Tobacco Use Types Packs/Day Years Used Date Smoking Tobacco: Former Cigarettes 1 45 1 - 02/03/2018 Smokeless Tobacco: Former Snuff Alcohol Use Standard Drinks/Week Comments Yes 0 (1 standard drink = 0.6 oz pur e alcohol) occasional Sex and Gender Information Value Date Recorded Sex Assigned at Not on file Legal Sex Male 7:31 AM EST Gender Identity Not on file Sexual Orientation Not on file documented as of this encounter Plan of Treatment Upcoming Encounters Date Type Department Care Team (Latest Contact Info) Description 11/29/2024 1:00 PM EDT Office Visit [facility] [address] [address] Jett Reed, [address] [place] [address] [email or web address] 12/14/2024 Procedure Pass [facility] Periop [address] [place] [address] 12/14/2024 7:30 AM EDT Hospital Encounter [facility] Periop [address] [place] [address] Alina Guerrero MD [address] [place] [address] Department of Anesthesiology, [address] [address] 12/14/2024 7:30 AM EDT - 12/14/2024 10:00 AM EDT Surgery [facility] [address] [address] Alina Guerrero MD [address] [place] [address] Department of Anesthesiology, [address] [address] [email or web address] REPLACEMENT IMPLANT INFUSION DEVICE SPINE 12/27/2024 1:00 PM EDT Office Visit [facility] Pain Management [address] [facility] [address] [place] [address] Alina Guerrero MD [address] [place] [address] Department of Anesthesiology, [address] [address] [email or web address] Scheduled Procedures Name Priority Associated Diagnoses Date/Ti me REPLACEMENT IMPLANT INFUSION DEVICE SPINE End of battery life of intrathecal infusion pump 12/14/2024 7:30 AM EDT documented as of this encounter Visit Diagnoses Not on filedocumented in this encounter Care Teams Capper Machine Operator Relationship Specialty Start Date End Date Unknown, Unknown, PCP - General 02/11/18 08/04/22 Vijay Bravo DO [address] [place] [address] Dr [place] [place] [address] PCP - General Family Medicine 08/05/22 Farzad Arnett MD [address] [place] [address] Dr [place] [place] [address] Neurosurgery 02/19/18 documented as of this encounter Additional Source Comments The information contained in this document represents components of the legal health record. It is not the complete legal health record.[facility]
== END 2024-11-09 10:21 | disposition home or self-care (01) ==
LOC: HO.US 10:20
PROVIDERS: PCP Internal Medicine; Visit Provider Surgery Vascular Surgery
DX: I83.12 Varicose veins of left lower extremity with inflammation (principal)
CPT/HCPCS: 93970

== ENCOUNTER → 2024-11-09 10:23 | Outpatient (BNV) | payer OTHER, SELFPAY | PROVIDERS: PCP Internal Medicine; Visit Provider Radiology Diagnostic Radiology | DX: I83.12 Varicose veins of left lower extremity with inflammation (principal) | CPT/HCPCS: 93970 ==

== ENCOUNTER 2024-12-21 14:05 | Outpatient (AMB) | payer OTHER, SELFPAY ==
--- OUTSIDE RECORDS SUMMARY | 2018-05-19 15:00 | XMS_ITS | Encounter Summary ---
Author Organization [facility] Address [address] [place] [address] Phone Care Team Providers Care Railroad Repairer Name Role Phone Unknown, Unknown Primary Care Provider Farzad Urias MD Unavailable [phone] Encounter Details Date Type Department Care Team (Late st Contact Info) Description 05/19/2018 2:00 PM EST Hospital Encounter [facility] [address] [place] [address] Social History Tobacco Use Types Packs/Day Years Used Date Smoking Tobacco: Former Cigarettes 1 45 1 - 02/03/2018 Smokeless Tobacco: Former Snuff Alcohol Use Standard Drinks/Week Comments Yes 0 (1 standard drink = 0.6 oz pur e alcohol) occasional Child or Family Care Answer Date Record ed Do you have problems with on e of the following making it difficult for you to work, study, or receive health care? No 11/29/2024 Education Answer Date Recorded Are you interested in help w ith more adult education (for example, completing high school, GED, job training, learning the Irish language, technical skills, or developing parenting skills)? No 11/29/2024 Are you concerned about learning? Not on file 11/29/2024 No 11/29/2024 Yes 11/29/2024 Food Answer Date Recorded Within the past 6 months we worried whether our food would run out before we got money to buy more. Never True 11/29/2024 Within the past 6 months the food we bought just didn't last and we didn't have enough money to get more. Never True Residential Stability Answer Date Recor ded What is your housing situation today? I have edouard sing 11/29/2024 How many times have you move d in the past 12 months? Zero (I did not move) 11/29/2024 Paying for Meds Answer Date Recorded Do you have trouble paying for medicines? No 11/29/2024 Paying Utility Bills Answer Date Record ed Do you have trouble paying your heating or elect ricity bill? No 11/29/2024 Transportation Answer Date Recorded Has the lack of transportati on kept you from medical appointments or from getting medications? No 11/29/2024 Digital Access Answer Date Recorded No 11/29/2024 Yes 11/29/2024 Do you have reliable internet access at home? Ye s 11/29/2024 Do you have a device (e.g., phone, tablet, computer) with a working camera? Yes 11/29/2024 Sex and Gender Information Value Date Recorded Sex Assigned at Not on file Legal Sex Male 7:31 AM EST Gender Identity Not on file Sexual Orientation Not on file documented as of this encounter Plan of Treatment Upcoming Encounters Date Type Department Care Team (Late st Contact Info) Description 12/27/2024 1:00 PM EDT Office Visit [facility] Pain Management [address] [address] Alina Guerrero MD 75 [facility] Department of Anesthesiology, [facility] [address] [place] [address] 01/10/2025 2:15 PM EDT Procedure visit [facility] [address] [address] Jett Reed DO [address] [place] [address] [email or web address] documented as of this encounter Procedures Procedure Name Priority Date/Time Associated Diagnosis Comments FL FLUOROSCOPY MORE THAN 1 HOUR Routine 05/19/2018 5:36 PM EST documented in this encounter Results * FL FLUOROSCOPY MORE THAN 1 HOUR (05/19/2018 5:36 PM EST) Narrative ITZEL - 05/19/2018 5:37 PM EST This imaging order was used as part of a OR case and the order has be auto-finalized. Joshua Garcia MD IM AMIGO Final Result ITZEL documented in this encounter Visit Diagnoses Not on filedocumented in this encounter Care Teams Railroad Repairer Relationship Specialty Start Date End Date Unknown, Unknown, MD PCP - General 02/11/18 08/04/22 Farzad Arnett MD [address] [place] [address] Dr KIMBLE [address] [place] [address] Neurosurgery 02/19/18 documented as of this encounter Additional Source Comments The information contained in this document represents components of the legal health record. It is not the complete legal health record.[facility]
--- OUTSIDE RECORDS SUMMARY | 2024-12-21 12:51 | XMS_ITS | Continuity of Care Document ---
Author Organization [facility] Address [address] [place] [address] Phone Care Team Providers Care Backwinder Name Role Phone Jett Duncan MD Unavailable Unavailable Allergies, Adverse Reactions, Alerts Substance Reaction Status Criticality No Known Allergies Active No Inform ation Medications Medication Instructions Dosage Effective Dates (start - stop) Status Comments lidocaine 5 % topical patch apply 1 patch by topical route every day (May wear up to 12hours.) 1.00 patch - Active naproxen 500 mg tablet,delayed release take 1 tablet by oral route 2 times every day with food 500 MG - Active cyclobenzaprine 10 mg tablet take 1 tablet by oral route 3 times every day 10 MG - Active Vascepa 1 gram capsule take 2 capsule by oral route 2 times every day with food swallowing whole. Do not chew, open, dissolve and/or crush. 2 G - Active losartan 50 mg tablet take 1 tablet by oral route every day 50 MG - Active Jardiance 10 mg tablet take 1 tablet by oral route every day in the morning 10 MG - Active garlic tablet - Active ezetimibe 10 mg tablet take 1 tablet by oral route every day 10 MG - Active Procedures Procedure Date Offic/outpt E&m Estab Mod-hi 4 25 Rad Exam Shoulder; Comp Offic/outpt E&m Estab Mod-hi 4 25 Offic/outpt E&m Estab Mod-hi 4 25 Offic/outpt E&m Estab Mod-hi 4 25 Postop F/u Visit Incld Global 5 Rad Exam Shoulder; Comp Postop F/u Visit Incld Global 5 Postop F/u Visit Incld Global 5 Postop F/u Visit Incld Global 5 ARTHROSCOP ROTATOR CUFF RREPR 5 Scope Shldr Surg;dist Clavicul 25 Arthroscpy Shldr; Decomp Subac 25 Unlisted Procedure Arthroscopy 25 Platelet Rich Plasma PRP Injection Offic/outpt E&m Estab Mod-wa 4 25 Acromio/clavicular canvas&we Offic/outpt E&m Estab Mod-wa 4 25 Offic/outpt E&m Estab Mod-[facility] 24 Offic/outpt E&m Estab Mod-wa 2 24 Rad Exam Shoulder; Comp Offic/outpt E&m Estab Mod-wa 2 24 Rad Exam Knee; 4 View Offic/outpt E&m Estab Mod-wa 4 21 Offic/outpt E&m New Mod Sever 0 Offic/outpt E&m Estab Mod-wa 4 20 Offic/outpt E&m Estab Mod-wa 4 20 Postop F/u Visit Incld Global 0 Postop F/u Visit Incld [facility] 0 Postop F/u Visit Incld [facility] 0 Arthros Knee; W/menisect (med/ 20 Offic/outpt E&m Estab Mod-wa 4 20 Offic/outpt E&m Estab Mod-wa 2 20 Offic/outpt E&m [facility]-wa 60 0 Advance Directives Directive Yes / No Effective Date File Name No Information Encounters Encounter Description Practice Location Reason(s) For Visit Diagnoses Date Provider Providers Copied on Encounter [facility], [address], [place], [place], [address], [place] tel:[phone] /[facility] No Information Dec- 5 Perla Frausto. [address] [facility], [facility] [address], [place], [place], [address] , [place]. tel: [phone] Offic/outpt E&m Estab Mod-hi 4 [facility], [address], [place], [place], [address], [place] tel:[phone] /[facility] Acute pain of left shoulderTraum atic complete tear of left rotator cuff, subsequent encounterArth ritis of left acromioclavic ular jointS/P arthroscopy of left shoulderObesi ty, unspecified 5 Perla Frausto. [address] [facility], [facility] [address], [place], [place], [address] , [place]. tel: [phone] Referring Provider: Jett Mcnulty, [address] [address], [place], [address] . tel:[phone] Offic/outpt E&m Estab Mod-hi 4 [facility], [address] [facility] [address], [place], [place], [address], [place] tel:[phone] /[facility] Acute pain of left shoulderObesi ty, unspecifiedAr thritis of left acromioclavic ular jointTraumati c complete tear of left rotator cuff, subsequent encounterS/P arthroscopy of left shoulder 5 Perla Frausto. [address] [facility], [facility] [address], [place], [place], [address] , [place]. tel: [phone] Referring Provider: Jett Mcnulty, [address] [facility] [address], [place], [address] . tel:[phone] Offic/outpt E&m Estab Mod-hi 4 [facility], [address] [facility] [address], [place], [place], [address], [place] tel:[phone] /[facility] Arthritis of left acromioclavic ular jointTraumati c complete tear of left rotator cuff, subsequent encounterS/P arthroscopy of left shoulderObesi ty, unspecified 5 Perla Frausto. [address] [facility], [place], [place], [address] , [place]. tel:[phone] Referring Provider: Jett Mcnulty, [address] [facility] [address], [place], [address] . tel:[phone] Offic/outpt E&m Estab Mod-hi 4 [facility], [address], [place], [place], [address], [place] tel:[phone] /[facility] Obesity, unspecifiedAr thritis of left acromioclavic ular jointTraumati c complete tear of left rotator cuff, subsequent encounterS/P arthroscopy of left shoulder 5 Perla Frausto. [address] [facility], [address], [place], [place], [address] , [place]. tel:[phone] Referring Provider: Jett Mcnulty, [address] [facility] [address], [place], [address] . tel:[phone] [facility], [address], [place], [place], [address], [place] tel:[phone] /[facility] Obesity, unspecifiedS/ P arthroscopy of left shoulder 5 Perla Frausto. [address] [facility], [address], [place], [place], [address] , [place]. tel:[phone] Referring Provider: Jett Mcnulty, [address] [facility] [address], [place], [address] . tel:[phone] [facility], [address], [place], [place], [address], [place] tel:[phone] /[facility] S/P arthroscopy of left shoulderObesi ty, unspecified Mar-2 4-202 5 Perla Frausto. [address], [place], [place], [address] , [place]. tel:[phone] Referring Provider: Jett Mcnulty, [address], [place], [address] . tel:[phone] [facility], [address], [place], [place], [address], [place] tel:[phone] /[facility] S/p Left shoulder (chief complaint) Obesity, unspecifiedS/ P arthroscopy of left shoulder 5 Jose Muniz . [address], [place], [place], [address] , [place]. tel:[phone] Referring Provider: Jett Mcnulty, [address] [facility] [address], [place], [address] . tel:[phone] [facility], [address], [place], [place], [address], [place] tel:[phone] /[facility] S/P arthroscopy of left shoulderObesi ty, unspecified 5 Perla Frausto. [address], [facility] [address], [place], [place], [address] , [place]. tel:[phone] Referring Provider: Jett Mcnulty, [address] [facility] [address], [place], [address] . tel:[phone] [facility], [address], [place], [place], [address], [place] tel:[phone] /[facility] No Information 5 Perla Frausto. [address], [place], [place], [address] , [place]. tel:[phone] Referring Provider: Jett Mcnulty, [address] [facility] [address], [place], [address] . tel:[phone] Offic/outpt E&m Estab Mod-hi 4 [facility], [address] [address], [place], [place], [address], [place] tel:[phone] /[facility] Obesity, unspecifiedAc [place] pain of left shoulderArthr itis of left acromioclavic ular jointTraumati c complete tear of left rotator cuff, subsequent encounterRupt ure of left biceps tendon, initial encounter Apr- 5 Perla Frausto. [address] [facility], [facility] [address], [place], [place], [address] , [place]. tel:[phone] Referring Provider: Jett Mcnulty, [address], [address] . tel:[phone] Offic/outpt E&m Estab Mod-hi 4 [facility], [address], [id number], [place] tel:[phone] /[facility] Acute pain of left shoulderArthr itis of left acromioclavic ular jointRupture of left biceps tendon, initial encounterTrau matic complete tear of left rotator cuff, subsequent encounterObes ity, unspecified 5 Perla Frausto. [address] [facility], [address] [address], [place], [place], [address] , [place]. [phone] Referring Provider: Jett Mcnulty, [address], [address] . tel:[phone] Offic/outpt E&m Estab Mod-hi 4 [facility], [address] [address], [place], [place], [address], [place] tel:[phone] /[facility] Obesity, unspecifiedAc [place] pain of left shoulderTraum atic complete tear of left rotator cuff, initial encounterRupt ure of left biceps tendon, initial encounterArth ritis of left acromioclavic ular joint Dec-0 4 Perla Frausto. [address] [facility], [facility] [address], [place], [place], [address] , [place]. tel:[phone] Referring Provider: Jett Mcnulty, [address], [place], [address] . tel:[phone] Offic/outpt E&m Estab Mod-hi 2 [facility], [address], [place], [place], [address], [place] tel:[phone] /[facility] left shoulder (chief complaint) Acute pain of left shoulder 4 Jose Muniz . [address], [place], [place], [address] , [place]. tel:[phone] Referring Provider: Flavio Garcia, [address], [place], [address] . tel:[phone] Offic/outpt E&m Estab Mod-hi 2 [facility], [address], [place], [place], [address], [place] tel:[phone] /[facility] Left shoulder (chief complaint) Acute pain of left shoulderObesi ty, unspecified 4 Jose Muniz . [address] [facility], [address], [place], [place], [address] , [place]. tel:[phone] Referring Provider: Flavio Garcia, [address] [facility] [address], [place], [address] . tel:[phone] Offic/outpt E&m Estab Mod-hi 4 [facility], [address], [place], [place], [address], [place] tel:[phone] /[facility] S/P right knee arthroscopyOb esity, unspecifiedCh ondromalacia of right kneeRight anterior knee painWork related injury 1 Perla Frausto. [address] [facility], [address], [place], [place], [address] , [place]. tel:[phone] Referring Provider: Jett Mcnulty, [address] [facility] [address], [place], [address] . tel:[phone] Offic/outpt E&m New Mod Sever [facility], [address] [address], [place], [place], [address], [place] tel:[phone] [facility] (R) knee injury (chief complaint) Right anterior knee painH/O fracture of patellaWork related injuryObesity , unspecified 0 Matt Montez. [address] [facility], [facility] [address], [place], [place], [address] , [place]. tel:[phone] Referring Provider: Tc Mcdermott, [address] [address], [place], [address] . tel:[phone] Offic/outpt E&m [facility] Mod-hi 4 [facility], [address] [address], [place], [place], [address], [place] tel:[phone] [facility] Obesity, unspecifiedS/ P right knee arthroscopy 0 Perla Frausto. [address] [facility], [address], [id number] , [place]. tel:[phone] Referring Provider: Jett Mcnulty, [address] [address], [place], [address] . tel:[phone] Offic/outpt E&m [facility] Mod-hi 4 [facility], [address] [address], [place], [place], [address], [place] tel:[phone] [facility] S/P right knee arthroscopy 0 Perla Frausto. [address] [facility], [address] [address], [place], [place], [address] , [place]. tel:[phone] Referring Provider: Jett Mcnulty, [address] [address], [place], [address] . tel:[phone] [facility], [address] [address], [place], [place], [address], [place] tel:[phone] [facility] S/P right knee arthroscopy 0 Perla Frausto. [address], [place], [place], [address] , [place]. [phone] Referring Provider: Jett Mcnulty, [address], [place], [address] . tel:[phone] [facility], [address], [place], [place], [address], [place] tel:[phone] [facility] Obesity, unspecifiedS/ P right knee arthroscopy 0 Perla Frausto. [address], [place], [place], [address] , [place]. [phone] Referring Provider: Jett Mcnulty, [address], [place], [address] . tel:[phone] [facility], [address], [place], [place], [address], [place] tel:[phone] [facility] S/P right knee arthroscopy 0 Perla Frausto. [address], [place], [place], [address] , [place]. tel:[phone] Referring Provider: Jett Mcnulty, [address], [place], [address] . tel:[phone] [facility], [address], [place], [place], [address], [place] tel:[phone] [facility] No Information 0 Perla Frausto. [address], [place], [place], [address] , [place]. tel:[phone] Referring Provider: Jett Mcnulty, [address], [place], [address] . tel:[phone] Offic/outpt E&m [facility] Mod-hi 4 [facility], [address], [place], [place], [address], [place] tel:[phone] [facility] Obesity, unspecifiedCu rrent peripheral tear of medial meniscus of right knee, initial encounterFrac ture of patella, sequela 0 Perla Frausto. [address], [place], [place], [address] , [place]. tel:[phone] Referring Provider: Jett Mcnulty, [address], [place], [address] . tel:[phone] Offic/outpt E&m [facility] Mod-hi 2 [facility], [address], [place], [place], [address], [place] tel:[phone] [facility] [place] Obesity, unspecifiedCu rrent peripheral tear of medial meniscus of right knee, initial encounterFrac ture of patella, sequela 0 Perla Frausto. [address], [place], [place], [address] , [place]. [phone] Referring Provider: Jett Mcnulty, [address], [place], [address] . tel:[phone] Offic/outpt E&m [facility] Mod-hi 60 [facility], [address], [place], [place], [address], [place] tel:[phone] [facility] Current peripheral tear of medial meniscus of right knee, initial encounterFrac ture of patella, sequelaObesit y, unspecified Apr- 0 Perla Frausto. [address], [place], [place], [address] , [place]. [phone] Referring Provider: Jett Mcnulty, [address], [place], [address] . tel:[phone] Family History Family Member Type Diagnosis Age At Onset Sister Problem (finding) Cancer, unknown Mother Problem Cancer, unknown Mother Problem (finding) Cancer, unknown Payers Payer name Insurance type Covered constitution party ID Breann ruiz(s) No Information Social History Type Description Quantity [...] education regardin g diet completed Referral Ordered: MRI Any Joint Upper Ext W/O Cont Left shoulder ordered Referral Ordered: Rad Exam Shoulder; Comp Left shoulder ordered Referral Ordered: MRI Upper Extremity Other Than Joint W/O Cont. 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 Of note patient also complains of cervical pain, left knee, and left thumb pain. 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 Dr. Duncan feels he is reached [facility]. Related to Right anterior knee pain Patient was previous ly placed [facility] by Dr. Duncan. He has been assigned [...] from Dr. Duncan.He will be placed at [facility]. He has an 8% whole person impairment [...]
--- NOTE | 2024-12-21 14:16 | MHC.OFFVIS ---
Intake Visit Reasons: follow up s/p US 11/09/24 Intake Note: Patient presents for follow up US performed 11/09/24. Accompanied by: Self / Same As Patient Allergies No Known Allergies Allergy (Verified 12/21/24 14:18) HPI HPI follow up s/p US 11/09/24: Details: The patient is a 64-year-old male presenting with leg swelling. Recent ultrasound results were normal, ruling out venous causes, and the patient believes inactivity contributes to the swelling. He uses a walker and AFO braces for mobility, wearing the braces for three hours daily, and performs exercises like simulated stair climbing. The right ankle swells more than the left, and leg elevation at night provides some relief. 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 [facility] Family History Brother Alcoholic Asthma Father Alcoholic Asthma Mother Asthma Social History Housing: House Alcohol intake: current Patient Tobacco Use Status: Former Tobacco user Tobacco use type: Cigarette Cigarettes Per Day: 20 Years Smoked: 30 e-Cigarette/Vaping Use: Never Used Second Hand Smoke Exposure: No Substance Use Type: Marijuana service: No Current occupational status: retired Cognitive needs: No Hearing needs: No Vision needs: Yes (glasses) Review of Systems Const All systems reviewed & are unremarkable except as noted in HPI and below Reports no additional complaints ENT Reports Normal hearing present Card Denies chest pain, Denies chest pain at rest, Denies chest pain with activity and Denies pedal edema Resp Denies cough GI Denies abdominal pain Musc Denies abnormal gait, Denies muscle cramps and Denies radiating pain into limb Skin/Breast Denies skin ulcer and Denies wounds Neuro Reports Normal hearing present and Denies abnormal gait Psych Reports no additional complaints Physical Exam Const General: cooperative, healthy appearing and comfortable Orientation/consciousness: oriented to person, oriented to place and oriented to time HEENT Head: Yes normal to inspection Neck Neck: Yes normal visual inspection Carotids: no bruits Chest Chest palpation & inspection: normal inspection of the chest Resp Effort & Inspection: normal respiratory effort and able to speak in complete sentences Auscultation: clear to auscultation bilaterally, no crackles, no rales, no rhonchi and no wheezes Cardio Rate: regular rate Rhythm: regular rhythm Heart sounds: S1 normal heart sound present and S2 normal heart sound present Bruits: no carotid bruits Peripheral pulses: Peripheral pulses 2+ throughout GI Inspection: Yes normal to inspection Skin Wounds: no wounds Hair: normal Neuro General: oriented to person, oriented to place and oriented to time Cranial nerves: Yes CN's II-XII intact bilaterally and Yes Normal hearing present Cognition (Neuro): normal cognition Motor exam (neuro): 5/5 motor strength present throughout Extrem Other: venous exam: +2 edema General: No clubbing, No cyanosis and Yes edema Psych Appearance: grossly normal Mental Status: mental status grossly normal Speech and movement: Normal speech and movement present Results Reviewed Results Reviewed: Brief summary of venous insufficiency testing is as follows: right great saphenous vein: negative right small saphenous vein: negative right accessory vein: none present left great saphenous vein: negative left small saphenous vein: negative left accessory vein: none present Please note there is no evidence of any venous aneurysms or significant tortuosity Assessment & Plan Assessment & Plan (1) Varicose veins of left lower extremity with inflammation: Code(s): I83.12 - Varicose veins of left lower extremity with inflammation Category: Medical Plan: During the visit, I discussed the normal ultrasound results and the lack of venous causes for the leg swelling. I recommended leg elevation as a management strategy and suggested considering a recliner chair for this purpose. I informed the patient that a referral for equipment could be provided if necessary. Thank you for allowing us to participate in his care. If there are any questions or concerns please do not hesitate to contact us. Plan Patient was informed and verbally consented to the use of an ambient scribe for clinic note documentation during this visit. Patient Instructions: - Elevate your legs regularly to help reduce swelling. - Consider acquiring a recliner chair or similar equipment to aid in leg elevation. - Contact us if you need a referral for any equipment. Coding Level of Care Code Est Pt Level 4 (42900) Diagnoses Varicose veins of left lower extremity with inflammation I83.12
--- OUTSIDE RECORDS SUMMARY | 2024-12-21 17:53 | XMS_ITS | Encounter Summary ---
Author Organization [facility] Address [address] [address] Phone Care Team Providers Care Tourist Cabin Keeper Name Role Phone Unknown, Unknown Primary Care Provider Farzad Urias MD Unavailable [phone] Vijay Bravo DO Primary Care Provider [phone] Reason for Visit * Reason Comments Medication Refill Encounter Details Date Type Department Care Team (Late st Contact Info) Description 02/11/2020 Refill [facility] [address] [address] Jett Reed DO [address] [place] [address] [email or web address] Medication Refill Social History Tobacco Use Types [...] Encounters Date Type Department Care Team (Late Contact Info) Description 12/27/2024 1:00 PM EDT Office Visit [facility] Pain Management 850 [facility] [address] [place] [address] Alina Guerrero MD [address] [place] [address] Department of Anesthesiology, CWN L1 [place] [address] [email or web address] 01/10/2025 2:15 PM EDT Procedure visit [facility] [place] [address] [place] [address] Jett Reed DO [address] [place] [address] [email or web address] documented as of this encounter Visit Diagnoses Not on filedocumented in this encounter Care Teams Tourist Cabin Keeper Relationship Specialty Start Date End Date Unknown, Unknown, MD PCP - General 02/11/18 08/04/22 Vijay Bravo DO [address] [place] [address] Dr MARAVILLA_[place]rological [place] [address] PCP - General Family Medicine 08/05/22 Farzad Arnett MD [address] [place] [address] Dr MARAVILLA_Neurological [place] [address] Neurosurgery 02/19/18 documented as of this encounter Additional Source Comments The information contained in this document represents components of the legal health record. It is not the complete legal health record.[facility]
--- OUTSIDE RECORDS SUMMARY | 2024-12-21 17:54 | XMS_ITS | Encounter Summary ---
Author Organization [facility] Address [address] [address] Phone Care Team Providers Care Transfer Machine Operator Name Role Phone Unknown, Unknown Primary Care Provider Farzad Urias MD Unavailable [phone] Vijay Bravo DO Primary Care Provider [phone] Reason for Visit * Reason Comments Medication Refill Encounter Details Date Type Department Care Team (Late st Contact Info) Description 03/28/2020 Refill [facility] [address] [address] Jett Reed DO [address] [place] [address] [email or web address] Medication Refill Social History Tobacco Use Types [...] Description 12/27/2024 1:00 PM EDT Office Visit [facility] Pain Management 850 [facility] [address] [place] [address] Alina Guerrero MD [address] [place] [address] Department of Anesthesiology, CWN L1 [place] [address] [email or web address] 01/10/2025 2:15 PM EDT Procedure visit [facility] [place] [address] [place] [address] Jett Reed DO [address] [place] [address] [email or web address] documented as of this encounter Visit Diagnoses Not on filedocumented in this encounter Care Teams Transfer Machine Operator Relationship Specialty Start Date End Date Unknown, Unknown, MD PCP - General 02/11/18 08/04/22 Vijay Bravo DO [address] [place] [address] Dr MARAVILLA_Ne[place]rological [place] [address] PCP - General Family Medicine 08/05/22 Farzad Arnett MD [address] [place] [address] Dr MARAVILLA_Neurological [place] [address] Neurosurgery 02/19/18 documented as of this encounter Additional Source Comments The information contained in this document represents components of the legal health record. It is not the complete legal health record.[facility]
--- OUTSIDE RECORDS SUMMARY | 2024-12-21 17:54 | XMS_ITS | Encounter Summary ---
Author Organization [facility] Address [address] [address] Phone Care Team Providers Care Senior Economist Name Role Phone Unknown, Unknown Primary Care Provider Farzad Urias MD Unavailable [phone] Vijay Bravo DO Primary Care Provider [phone] Reason for Visit * Reason Comments Medication Refill Encounter Details Date Type Department Care Team (Late st Contact Info) Description 05/07/2020 Refill [facility] [address] [address] Jett Reed DO [address] [place] [address] [email or web address] Medication Refill Social History Tobacco Use [...] Description 12/27/2024 1:00 PM EDT Office Visit [facility] Pain Management 850 [facility] [address] [place] [address] Alina Guerrero MD [address] [place] [address] Department of Anesthesiology, CWN L1 [place] [address] [email or web address] 01/10/2025 2:15 PM EDT Procedure visit [facility] [place] [address] [place] [address] Jett Reed DO [address] [place] [address] [email or web address] documented as of this encounter Visit Diagnoses Not on filedocumented in this encounter Care Teams Senior Economist Relationship Specialty Start Date End Date Unknown, Unknown, MD PCP - General 02/11/18 08/04/22 Vijay Bravo DO [address] [place] [address] Dr MARAVILLA_Neurological [place] [address] PCP - General Family Medicine 08/05/22 Farzad Arnett MD [address] [place] [address] Dr MARAVILLA_Neurological [place] [address] Neurosurgery 02/19/18 documented as of this encounter Additional Source Comments The information contained in this document represents components of the legal health record. It is not the complete legal health record.[facility]
--- OUTSIDE RECORDS SUMMARY | 2024-12-21 17:54 | XMS_ITS | Encounter Summary ---
Author Organization [facility] Address [address] [address] Phone Care Team Providers Care Dip Tanker Name Role Phone Unknown, Unknown Primary Care Provider Farzad Urias MD Unavailable [phone] Vijay Bravo DO Primary Care Provider Reason for Visit * Reason Comments Medication Refill Encounter Details Date Type Department Care Team (Late st Contact Info) Description 07/09/2020 Refill [facility] [address] [address] Jett Reed DO [address] [place] [address] [email or web address] Medication Refill Social History Tobacco Use [...] Description 12/27/2024 1:00 PM EDT Office Visit [facility] Pain Management 850 [facility] [address] [place] [address] Alina Guerrero MD [address] [place] [address] Department of Anesthesiology, CWN L1 [place] [address] [email or web address] 01/10/2025 2:15 PM EDT Procedure visit [facility] [place] [address] [place] [address] Jett Reed DO [address] [place] [address] [email or web address] documented as of this encounter Visit Diagnoses Not on filedocumented in this encounter Care Teams Dip Tanker Relationship Specialty Start Date End Date Unknown, Unknown, MD PCP - General 02/11/18 08/04/22 Vijay Bravo DO [address] [place] [address] Dr MARAVILLA_[place]rological [place] [address] PCP - General Family Medicine 08/05/22 Farzad Arnett MD [address] [place] [address] Dr MARAVILLA_[place]rological [place] [address] Neurosurgery 02/19/18 documented as of this encounter Additional Source Comments The information contained in this document represents components of the legal health record. It is not the complete legal health record.[facility]
--- OUTSIDE RECORDS SUMMARY | 2024-12-21 17:54 | XMS_ITS | Encounter Summary ---
Author Organization [facility] Address [address] [facility] [address] [place] [address] Phone Care Team Providers Care Closed Circuit Screen Watcher Name Role Phone Unknown, Unknown Primary Care Provider Farzad Urias MD Unavailable [phone] Vijay Bravo DO Primary Care Provider [phone] Encounter Details Date Type Department Care Team (Late st Contact Info) Description 05/19/[address] [facility] Periop [address] [place] [address] Social History Tobacco Use Types Packs/Day Years [...] Description 12/27/2024 1:00 PM EDT Office Visit [facility] Pain Management 850 [facility] [address] [place] [address] Alina Guerrero MD [address] [place] [address] Department of Anesthesiology, [address] [address] 01/10/2025 2:15 PM EDT Procedure visit [facility] [place] [address] [place] [address] Jett Reed DO [address] [place] [address] [email or web address] documented as of this encounter Visit Diagnoses Not on filedocumented in this encounter Care Teams Closed Circuit Screen Watcher Relationship Specialty Start Date End Date Unknown, Unknown, MD PCP - General 02/11/18 08/04/22 Vijay Bravo DO [address] [place] [address] Dr KIMBLE 503_[place]rological [place] [address] PCP - General Family Medicine 08/05/22 Farzad Arnett MD [address] [place] [address] Dr KIMBLE 503_[place]rological [place] [address] Neurosurgery 02/19/18 documented as of this encounter Additional Source Comments The information contained in this document represents components of the legal health record. It is not the complete legal health record.[facility]
--- OUTSIDE RECORDS SUMMARY | 2024-12-21 17:54 | XMS_ITS | Encounter Summary ---
Author Organization [facility] Address [address] [address] Phone Care Team Providers Care Thermostat Machine Tender Name Role Phone Unknown, Unknown Primary Care Provider Farzad Urias MD Unavailable Vijay Bravo DO Primary Care Provider [phone] Reason for Visit * Reason Comments Medication Refill Encounter Details Date Type Department Care Team (Late st Contact Info) Description 07/05/2020 Refill [facility] [address] [address] Jett Reed DO [address] [place] [address] [email or web address] Medication Refill Social History Tobacco Use [...] Description 12/27/2024 1:00 PM EDT Office [facility] Pain Management 850 [facility] [address] [place] [address] Alina Guerrero MD [address] [place] [address] Department of Anesthesiology, CWN L1 [place] [address] [email or web address] 01/10/2025 2:15 PM EDT Procedure visit [facility] [place] [address] [place] [address] Jett Reed DO [address] [place] [address] [email or web address] documented as of this encounter Visit Diagnoses Not on filedocumented in this encounter Care Teams Thermostat Machine Tender Relationship Specialty Start Date End Date Unknown, Unknown, MD PCP - General 02/11/18 08/04/22 Vijay Bravo DO [address] [place] [address] Dr MARAVILLA_[place]rological [place] [address] PCP - General Family Medicine 08/05/22 Farzad Arnett MD [address] [place] [address] Dr MARAVILLA_Neurological [place] [address] Neurosurgery 02/19/18 documented as of this encounter Additional Source Comments The information contained in this document represents components of the legal health record. It is not the complete legal health record.[facility]
--- OUTSIDE RECORDS SUMMARY | 2024-12-21 17:54 | XMS_ITS | Encounter Summary ---
Author Organization [facility] Address [address] [address] Phone Care Team Providers Care Sheet Metal Assembler And Riveter Name Role Phone Unknown, Unknown Primary Care Provider Farzad Urias MD Unavailable [phone] Vijay Bravo DO Primary Care Provider [phone] Reason for Visit * Reason Comments Medication Refill Encounter Details Date Type Department Care Team (Late st Contact Info) Description 05/12/2020 Refill [facility] [address] [address] Jett Reed DO [address] [place] [address] [email or web address] Medication Refill Social History Tobacco Use Types [...] Description 12/27/2024 1:00 PM EDT Office Visit [facility] Pain Management 850 [facility] [address] [place] [address] Alina Guerrero MD [address] [place] [address] Department of Anesthesiology, CWN L1 [place] [address] [email or web address] 01/10/2025 2:15 PM EDT Procedure visit [facility] [place] [address] [place] [address] Jett Reed DO [address] [place] [address] TIAMARCI@[email or web address] documented as of this encounter Visit Diagnoses Not on filedocumented in this encounter Care Teams Sheet Metal Assembler And Riveter Relationship Specialty Start Date End Date Unknown, Unknown, MD PCP - General 02/11/18 08/04/22 Vijay Bravo DO [address] [place] [address] Dr MARAVILLA_[place]urological [place] [address] PCP - General Family Medicine 08/05/22 Farzad Arnett MD [address] [place] [address] Dr MARAVILLA_Neurological [place] [address] Neurosurgery 02/19/18 documented as of this encounter Additional Source Comments The information contained in this document represents components of the legal health record. It is not the complete legal health record.[facility]
--- OUTSIDE RECORDS SUMMARY | 2024-12-21 17:54 | XMS_ITS | Encounter Summary ---
Author Organization [facility] Address [address] [address] Phone Care Team Providers Care Impregnator Helper Name Role Phone Unknown, Unknown Primary Care Provider Farzad Urias MD Unavailable [phone] Vijay Bravo DO Primary Care Provider [phone] Reason for Visit * Reason Comments Medication Refill Encounter Details Date Type Department Care Team (Late st Contact Info) Description 01/24/2022 Refill [facility] [address] [address] Jett Reed DO [address] [place] [address] CAREN@[email or web address] Medication Refill Social History Tobacco Use [...] Description 12/27/2024 1:00 PM EDT Office Visit [facility] Pain Management 850 [facility] [address] [place] [address] Alina Guerrero MD [address] [place] [address] Department of Anesthesiology, CWN L1 [place] [address] [email or web address] 01/10/2025 2:15 PM EDT Procedure visit [facility] [place] [address] [place] [address] Jett Reed DO [address] [place] [address] [email or web address] documented as of this encounter Visit Diagnoses Not on filedocumented in this encounter Care Teams Impregnator Helper Relationship Specialty Start Date End Date Unknown, Unknown, MD PCP - General 02/11/18 08/04/22 Vijay Bravo DO [address] [place] [address] Dr MARAVILLA_Neurological [place] [address] PCP - General Family Medicine 08/05/22 Farzad Arnett MD [address] [place] [address] Dr MARAVILLA_Neurological [place] [address] Neurosurgery 02/19/18 documented as of this encounter Additional Source Comments The information contained in this document represents components of the legal health record. It is not the complete legal health record.[facility]
--- OUTSIDE RECORDS SUMMARY | 2024-12-21 17:54 | XMS_ITS | Encounter Summary ---
Author Organization [facility] Address [address] [place] [address] Phone Care Team Providers Care Casino Porter Name Role Phone Unknown, Unknown Primary Care Provider Farzad Urias MD Unavailable [phone] Vijay Bravo DO Primary Care Provider [phone] Encounter Details Date Type Department Care Team (Late st Contact Info) Description 05/19/2018 Procedure Pass [facility] [address] [place] [address] Social History Tobacco Use Types Packs/Day Years [...] Description 12/27/2024 1:00 PM EDT Office Visit [facility] Pain Management 850 [facility] [address] [place] [address] Alina Guerrero MD 75 [facility] Department of Anesthesiology, [address] [address] 01/10/2025 2:15 PM EDT Procedure visit [facility] [place] [address] [place] [address] Jett Reed DO [address] [place] [address] [email or web address] documented as of this encounter Visit Diagnoses Not on filedocumented in this encounter Care Teams Casino Porter Relationship Specialty Start Date End Date Unknown, Unknown, MD PCP - General 02/11/18 08/04/22 Vijay Bravo DO [address] [place] [address] Dr KIMBLE 503_[place]rological [place] [address] PCP - General Family Medicine 08/05/22 Farzad Arnett MD [address] [place] [address] Dr KIMBLE 503_[place]rological [place] [address] Neurosurgery 02/19/18 documented as of this encounter Additional Source Comments The information contained in this document represents components of the legal health record. It is not the complete legal health record.[facility]
--- OUTSIDE RECORDS SUMMARY | 2024-12-21 17:54 | XMS_ITS | Encounter Summary ---
Author Organization [facility] Address [address] [address] Phone Care Team Providers Care Automobile Seat Cover Installer Name Role Phone Unknown, Unknown Primary Care Provider Farzad Urias MD Unavailable [phone] Vijay Bravo DO Primary Care Provider [phone] Reason for Visit * Reason Comments Medication Refill Encounter Details Date Type Department Care Team (Late st Contact Info) Description 08/05/2020 Refill [facility] [address] [address] Jett Reed DO [address] [place] [address] [email or web address] Medication Refill Social History Tobacco Use Types [...] Description 12/27/2024 1:00 PM EDT Office Visit [facility] Pain Management 850 [facility] [address] [place] [address] Alina Guerrero MD [address] [place] [address] Department of Anesthesiology, CWN L1 [place] [address] [email or web address] 01/10/2025 2:15 PM EDT Procedure visit [facility] [place] [address] [place] [address] Jett Reed DO [address] [place] [address] [email or web address] documented as of this encounter Visit Diagnoses Not on filedocumented in this encounter Care Teams Automobile Seat Cover Installer Relationship Specialty Start Date End Date Unknown, Unknown, MD PCP - General 02/11/18 08/04/22 Vijay Bravo DO [address] [place] [address] Dr MRAAVILLA_Neurological [place] [address] PCP - General Family Medicine 08/05/22 Farzad Arnett MD [address] [place] [address] Dr MARAVILLA_Neurological [place] [address] Neurosurgery 02/19/18 documented as of this encounter Additional Source Comments The information contained in this document represents components of the legal health record. It is not the complete legal health record.[facility]
--- OUTSIDE RECORDS SUMMARY | 2024-12-21 17:54 | XMS_ITS | Encounter Summary ---
Author Organization [facility] Address 399 [facility] [address] [place] [address] Phone Care Team Providers Care Hvac Estimator Name Role Phone Farzad Arnett MD Unavailable [phone] Vijay Bravo DO Primary Care Provider [phone] Reason for Visit * Reason Comments Medication Refill Encounter Details Date Type Department Care Team (Late st Contact Info) Description 01/29/2023 Refill [facility] [address] [address] Jett Reed DO [address] [place] [address] [email or web address] Medication Refill Social History Tobacco Use Types Packs/Day Years Used Date Smoking Tobacco: Former Cigarettes 1 45 1 - 02/03/2018 Smokeless Tobacco: Former Snuff Alcohol Use Standard Drinks/Week Comments Yes 0 (1 standard drink = 0.6 oz pur e alcohol) occasional Education Answer Date Recorded Are you interested in more education? Not on minal e 08/01/2022 Are you concerned about learning? Not on file 08/01/2022 No 08/01/2022 No 08/01/2022 Digital Access Answer Date Recorded No 08/31/2022 No 08/31/2022 Reliable internet access at home? Not on file 08/31/2022 Device with a working camera? Not on file Sex and Gender Information Value Date Recorded Sex Assigned at Not on file Legal Sex Male 7:31 AM EST Gender Identity Not on file Sexual Orientation Not on file documented as of this encounter Plan of Treatment Upcoming Encounters Date Type Department Care Team (Late st Contact Info) Description 12/27/2024 1:00 PM EDT Office Visit [facility] Pain [facility] [address] [place] [address] Alina Guerrero MD [address] [place] [address] Department of Anesthesiology, CWN L1 [place] [address] 01/10/2025 2:15 PM EDT Procedure visit [facility] [place] [address] [place] [address] Jett Reed DO [address] [place] [address] [email or web address] documented as of this encounter Visit Diagnoses Not on filedocumented in this encounter Care Teams Hvac Estimator Relationship Specialty Start Date End Date Vijay Bravo DO [address] [place] [address] Dr KIMBLE 503_[place] [address] PCP - General Family Medicine 08/05/22 Farzad Arnett MD [address] [place] [address] Dr KIMBLE 503_[place]rological [place] [address] Neurosurgery 02/19/18 documented as of this encounter Additional Source Comments The information contained in this document represents components of the legal health record. It is not the complete legal health record.[facility]
--- OUTSIDE RECORDS SUMMARY | 2024-12-21 17:54 | XMS_ITS | Encounter Summary ---
Author Organization [facility] Address [address] [address] Phone Care Team Providers Care Lawn Technician Name Role Phone Unknown, Unknown Primary Care Provider Farzad Urias MD Unavailable Vijay Bravo DO Primary Care Provider [phone] Reason for Visit * Reason Comments Medication Refill Encounter Details Date Type Department Care Team (Late st Contact Info) Description 05/01/2021 [facility]ill [facility] [address] [address] Jett Reed DO [address] [place] [address] [email or web address] Medication Refill Social History Tobacco Use [...] Description 12/27/2024 1:00 PM EDT Office Visit [facility] Pain Management [address] [facility] [address] [place] [address] Alina Guerrero MD [address] [place] [address] Department of Anesthesiology, [address] [address] [place] [address] [email or web address] 01/10/2025 2:15 PM EDT Procedure visit [facility] [address] [place] [address] Jett Reed DO [address] [place] [address] [email or web address] documented as of this encounter Visit Diagnoses Not on filedocumented in this encounter Care Teams Lawn Technician Relationship Specialty Start Date End Date Unknown, Unknown, MD PCP - General 02/11/18 08/04/22 Vijay Bravo DO [address] [place] [address] Dr [facility] [place] [address] PCP - General Family Medicine 08/05/22 Farzad Arnett MD [address] [place] [address] Dr [facility] [place] [address] Neurosurgery 02/19/18 documented as of this encounter Additional Source Comments The information contained in this document represents components of the legal health record. It is not the complete legal health record.[facility]
--- OUTSIDE RECORDS SUMMARY | 2024-12-21 17:54 | XMS_ITS | Clinical Summary ---
Author Organization [facility] Address [address] [address] Phone Care Team Providers Care Lamp Shade Maker Name Role Phone Farzad Arnett MD Unavailable [phone] Vijay Bravo DO Primary Care Provider [phone] Allergies No known active allergies Medications acetaminophen (TYLENOL) 325 mg tablet Take 2 tablets (650 mg total) by mouth every 6 (six) hours as needed for mild pain. 0 07/02/19 19 Active docusate sodium (COLACE) 100 MG capsule Take 1 capsule (100 mg total) by mouth every morning. 07/03/19 19 Active senna (SENOKOT) 8.6 mg tablet Take 2 tablets by mouth every morning. 07/03/19 19 Active vitamin B complex-folic acid 0.4 mg Tab Take 1 tablet (0.4 mg total) by mouth daily. 07/03/19 19 Active folic acid (FOLVITE) 400 MCG tablet Take 1 tablet (400 mcg total) by mouth daily. 30 tablet 2 11/05/19 Active b complex vitamins capsule Take 1 capsule by mouth daily. 30 capsule 2 10/18/19 Active baclofen, PF, (LIORESAL) 2,000 mcg/mL INTRATHECAL injection 20 mL by Intrathecal route continuous. 20 mL 11 03/22/20 Active drainage bag Misc 3 Bags by Miscellaneous route every 30 (thirty) days. 3 each 03/26/20 Active bisacodyl (MAGIC BULLET) [address] 1 suppository (10 mg total) rectally daily. 100 suppository 3 03/29/20 21 Active baclofen (LIORESAL) 10 MG tablet TAKE 1 TAB AT 6AM, 1 TAB AT 2PM AND 2 TABS AT 10PM 360 tablet 1 07/17/19 25 Active tamsulosin (FLOMAX) 0.4 mg Cap Take 2 capsules (0.8 mg total) by mouth daily. 180 capsule 1 07/29/19 25 Active gabapentin (NEURONTIN) 400 MG capsule Take 1 capsule (400 mg total) by mouth 3 (three) times a day. 270 capsule 1 08/07/19 25 Active nystatin (NYSTOP) powder Apply topically 2 (two) times a day. 60 g 2 08/18/19 25 Active oxyCODONE 5 MG immediate release tablet Take 1 tablet (5 mg total) by mouth every 6 (six) hours as needed for pain (specific location in comments) (moderate to severe post-operative pain). Partial fill ok 15 tablet 12/15/19 Active cephalexin (KEFLEX) 500 MG capsule Take 1 capsule (500 mg total) by mouth 4 (four) times a day for 7 days. 28 capsule 12/15/19 025 Active hvhnm-isef-wq- collagen (AMANDA) 7-7-1.5 gram PwPk Take 1 packet (27.5 g total) by mouth daily. 07/03/19 025 Discontin ued(Stop Taking at Discharge ) famotidine (PEPCID) 20 MG tablet Take 1 tablet (20 mg total) by mouth 2 (two) times a day. 07/02/19 025 Discontin ued(Stop Taking at Discharge ) FLUoxetine (PROZAC) 20 MG capsule Take 1 capsule (20 mg total) by mouth daily. 07/03/19 025 Discontin ued(Stop Taking at Discharge ) lactulose (CONSTULOSE) 20 gram/30 mL Soln Take 30 mL by mouth every 12 (twelve) hours as needed (constipation). 07/02/19 025 Discontin ued(Stop Taking at Discharge ) ondansetron (ZOFRAN) 4 MG tablet Take 1 tablet (4 mg total) by mouth every 8 (eight) hours as needed. 07/02/19 19 025 Discontin ued(Stop Taking at Discharge ) polyethylene glycol (MIRALAX) 17 gram packet Take 17 g by mouth daily as needed. 07/02/19 19 025 Discontin ued(Stop Taking at Discharge ) traZODone (DESYREL) 50 MG tablet Take 1 tablet (50 mg total) by mouth nightly at bedtime as needed. 07/02/19 19 025 Discontin ued(Stop Taking at Discharge ) nutritional supplements (OSMOLITE) Liqd Take 237 mL (1 Can total) by mouth 2 (two) times a day with meals. 60 Bottle 2 11/05/19 20 025 Discontin ued(Stop Taking at Discharge ) albuterol 90 mcg/actuation inhaler Inhale 2 puffs into the lungs every 6 (six) hours as needed for wheezing. 2 Inhaler 1 11/22/19 20 025 Discontin ued(Stop Taking at Discharge ) citalopram (CELEXA) 20 MG tablet Take 1 tablet (20 mg total) by mouth daily. 30 tablet 2 05/01/19 21 025 Discontin ued(Stop Taking at Discharge ) chlorhexidine (HIBICLENS) 4 % external liquidIndicati ons:Other chronic pain Apply topically daily as needed for other (free text field) (preop). 118 mL 11/25/19 25 025 Discontin ued(Tinli juan ramon order) Hospital, Clinic, or Other Facility Administered Medication Ordered Dose Route Frequency Start Date End Date Status baclofen (PF) (GABLOFEN) 2,000 mcg/mL INTRATHECAL injection 20 mL 20 mL IT Continuous 12/20/2019 12/08/2024 Discontin ued baclofen (PF) (GABLOFEN) 2,000 mcg/mL INTRATHECAL injection 20 mL 20 mL IT Continuous 01/12/2020 12/08/2024 Discontin ued baclofen (PF) (GABLOFEN) 2,000 mcg/mL INTRATHECAL injection 20 mL 20 mL IT Continuous 02/08/2020 12/08/2024 Discontin ued baclofen (PF) (GABLOFEN) 2,000 mcg/mL INTRATHECAL injection 20 mL 20 mL IT Continuous 02/29/2020 12/08/2024 Discontin ued baclofen (PF) (GABLOFEN) 2,000 mcg/mL INTRATHECAL injection 20 mL 20 mL IT Continuous 03/22/2020 12/08/2024 Discontin ued baclofen (PF) (GABLOFEN) 2,000 mcg/mL INTRATHECAL injection 20 mL 20 mL IT Continuous 04/19/2020 12/08/2024 Discontin ued baclofen (PF) (GABLOFEN) 2,000 mcg/mL INTRATHECAL injection 20 mL 20 mL IT Continuous 05/10/2020 12/08/2024 Discontin ued baclofen (PF) (GABLOFEN) 2,000 mcg/mL INTRATHECAL injection 20 mL 20 mL IT Continuous 05/31/2020 12/08/2024 Discontin ued baclofen (PF) (GABLOFEN) 2,000 mcg/mL INTRATHECAL injection 20 mL 20 mL IT Continuous 06/21/2020 12/08/2024 Discontin ued baclofen (PF) (GABLOFEN) 2,000 mcg/mL INTRATHECAL injection 20 mL 20 mL IT Continuous 07/24/2020 12/08/2024 Discontin ued baclofen (PF) (GABLOFEN) 2,000 mcg/mL INTRATHECAL injection 20 mL 20 mL IT Continuous 08/16/2020 12/08/2024 Discontin ued baclofen (PF) (GABLOFEN) 2,000 mcg/mL INTRATHECAL injection 20 mL 20 mL IT Continuous 09/06/2020 12/08/2024 Discontin ued baclofen (PF) (GABLOFEN) 2,000 mcg/mL INTRATHECAL injection 20 mL 20 mL IT Continuous 11/06/2020 12/08/2024 Discontin ued baclofen (PF) (GABLOFEN) 2,000 mcg/mL INTRATHECAL injection 20 mL 20 mL IT Continuous 11/29/2020 12/08/2024 Discontin ued baclofen (PF) (GABLOFEN) 2,000 mcg/mL INTRATHECAL injection 20 mL 20 mL IT Continuous 12/22/2020 12/08/2024 Discontin ued baclofen (PF) (GABLOFEN) 2,000 mcg/mL INTRATHECAL injection 20 mL 20 mL IT Continuous 01/10/2021 12/08/2024 Discontin ued baclofen (PF) (GABLOFEN) 2,000 mcg/mL INTRATHECAL injection 20 mL 20 mL IT Continuous 02/01/2021 12/08/2024 Discontin ued baclofen (PF) (GABLOFEN) 2,000 mcg/mL INTRATHECAL injection 20 mL 20 mL IT Continuous 02/28/2021 12/08/2024 Discontin ued baclofen (PF) (GABLOFEN) 2,000 mcg/mL INTRATHECAL injection 20 mL 20 mL IT Continuous 03/20/2021 12/08/2024 Discontin ued baclofen (PF) (GABLOFEN) 2,000 mcg/mL INTRATHECAL injection 20 mL 20 mL IT Continuous 12/15/2023 12/08/2024 Discontin ued Active Problems Problem Noted Date Diagnosed Date End of battery life of intrathecal infusion pump 12/14/2024 Spasticity 05/19/2018 Spinal cord injury, cervical region, initial enc ounter 02/12/2018 Tetraplegia 02/12/2018 Neurogenic bowel 02/12/2018 Neurogenic bladder 02/12/2018 Cervical spinal cord injury Resolved Problems Problem Noted Date Diagnosed Date Resolved Date Dysphagia 07/01/2018 Encounters Date Type Department Care Team Description 12/15/2024 Telephone [facility] Pain Management [address] [address] Gregg Walls MD 12/14/2024 7:31 AM EDT Anesthesia Event [facility] Periop [address] [place] [address] Sawyer Valdez MD Kelly, Natalie M, RN 12/14/2024 7:30 AM EDT - 12/14/2024 10:00 AM EDT Surgery [facility] Periop [address] [place] [address] Gregg Walls MD REPLACEMENT IMPLANT INFUSION DEVICE SPINE 12/14/2024 5:57 AM EDT - 12/14/2024 11:45 PM EDT Hospital Encounter [facility] Periop [address] [place] [address] Gregg Walls MD Discharge Disposition: Home or Self Care 12/14/2024 Telephone [facility] Pain Management [address] [address] Jackie Melton 12/14/2024 Procedure Pass [facility] Periop [address] [place] [address] 12/10/2024 Telephone [facility] Chronic Pain [address] [place] [address] Lena Ramachandran MD 12/08/2024 3:30 PM EDT Pre-Admission Testing [facility] [address] [place] [address] Gregg Walls MD 11/29/2024 1:57 PM EDT - 11/29/2024 11:59 PM EDT Hospital Encounter [facility] [address] [place] [address] Discharge Disposition: Home or Self Care 11/29/2024 1:00 PM EDT Office Visit [address] [address] Jett Reed DO Spasm of muscle (Primary Dx); History of spinal cord injury; Tetraplegia; Impaired mobility and activities of daily living 11/29/2024 Orders Only [address] [address] Jett Reed DO 11/24/2024 11:15 AM EDT Office Visit [facility] Pain Management [address] [place] [address] Gregg Walls MD End of battery life of intrathecal infusion pump (Primary Dx); Other chronic pain; Spasticity; Preop testing 11/24/2024 Telephone [facility] Pain Management [address] [place] [address] Josefina Garza 11/10/2024 Telephone [facility] Pain Management [address] [place] [address] Gregg Walls MD 10/31/2024 Orders Only [facility] Pain Management [address] [place] [address] Gregg Walls MD Other chronic pain (Primary Dx) 10/29/2024 Orders Only [facility] Pain Management [address] [place] [address] Robby Arana Other chronic pain (Primary Dx) from Last 3 Months Immunizations Immunization Administration Dates Next Due Influenza Quadrivalent Prese rvative Free IM 07/02/2018(Deferred: Patient Refused) Family History Medical History Relation Comments Fibromyalgia Neg Hx Migraines Neg Hx Social History Tobacco Use Types Packs/Day Years Used Date Smoking Tobacco: Former Cigarettes 1 45 1 - 02/03/2018 Smokeless Tobacco: Former Snuff Tobacco Cessation:Counseling Given: Not Answered Alcohol Use Standard Drinks/Week Comments Yes 0 [...] high school, GED, job training, learning the [place]uvian language, technical skills, or developing parenting skills)? [...] on file Sexual Orientation Not on file Last Filed Vital Signs Vital Sign Reading Time Taken Comments Blood Pressure 120/80 12/14/2024 12:15 PM EDT Pulse 80 12/14/2024 12:15 PM EDT Temperature 36.7 C (98 F) 12/14/2024 12:15 PM EDT Respiratory Rate 23 12/14/2024 10:30 AM EDT Oxygen Saturation 99% 12/14/2024 12:15 PM EDT Inhaled Oxygen Concentration - - Weight 68 kg (150 lb) 12/08/2024 3:07 PM EDT Height 170.2 cm (5' 7 ) 12/08/2024 3:07 PM EDT Body Mass Index 23.49 12/08/2024 3:07 PM EDT Plan of Treatment Upcoming Encounters Date Type Department Care Team (Late st Contact Info) Description 12/27/2024 1:00 PM EDT Office Visit [facility] Pain Management 850 [facility] [address] [place] [address] Gregg Walls MD [address] [place] [address] Department of Anesthesiology, [facility] [address] [place] [address] [email or web address] 01/10/2025 2:15 PM EDT Procedure visit [facility] [address] [address] Jett Reed DO 300 [place] [address] [email or web address] Health Maintenance Due Date Last Done Comments LIPID PANEL 1961 DEPRESSION SCREENING 1973 HEPATITIS C SCREENING 06/27/1979 HIV ONE-TIME SCREENING (18-6 5 YEARS) 06/27/1979 COLOGUARD 2006 COLONOSCOPY 2006 COLORECTAL CANCER SCREENING 2006 FIT TEST 2006 FOBT 2006 SIGMOIDOSCOPY 2006 VIRTUAL COLONOSCOPY 2006 LUNG CANCER SCREENING (LDCT Only) 06/27/2011 ZOSTER VACCINES (1 of 2) 06/27/2011 INFLUENZA VACCINE (#1) 2024 4, 12/21/2021 COVID-19 VACCINE (4 - 2024-2 6 season) 2024 10/03/2023, 04/12/2021, 09/13/2020 Adult Td,Tdap Booster 05/07/2032 05/07/2022 RSV VACCINE (1 - 1-dose 75+ series) 2036 PNEUMOCOCCAL VACCINES (50+ years) Completed 06/17/2023 HEPATITIS A VACCINES Aged Out No long er eligible based on patient's age to complete this topic HIB VACCINES Aged Out No longer eligi ble based on patient's age to complete this topic MENINGOCOCCAL VACCINES (ACWY) Aged Out No longer eligible based on patient's age to complete this topic MENINGOCOCCAL VACCINES (B) Aged Out N o longer eligible based on patient's age to complete this topic Medical Devices Implanted Type Area Supervisor Special Effects Device Identifier Shelf Expiration Date Model / Serial / Lot Pin-03/27/2015 Implanted: 015 (Quantity not on file) Pin Left: Ankle Pump Infusion 20ml Pain Synchromed Ii Programmable - Sn/A Implanted:Qty: 1 on 05/19/2018 by Joshua Garcia MD at [facility] Left: Abdomen [employer] 09/02/2019 8637-20 / N/A / [id number] Catheter Intrathecal [id number] Ascenda Polyester Polyurethane Silicone Pump Titanium Baclofen Therapy - Sn/A Implanted:Qty: 1 on 05/19/2018 by Joshua Garcia MD at [facility] Left: Abdomen [employer] 04/14/2020 8780 / N/A / [id number] Envelope Neuro Large Tyrx Absorbable Antibacterial - Sn/A Implanted:Qty: 1 on 05/19/2018 by Joshua Garcia MD at [facility] [employer] 06/04/2018 [id number] / N/A / [id number] Description:baci irrig rinse Envelope Neuro Large Tyrx Absorbable Antibacterial - Sn/A Implanted:Qty: 1 on 12/14/2024 by Gregg Walls MD at [facility] Left: Abdomen [employer] [facility] 08/19/2025 [id number] / N/A / [id number] Pump Infusion 40ml Intrathecal Synchromed Iii Programmable - [id number] Implanted:Qty: 1 on 12/14/2024 by Gregg Walls MD at [facility] Left: Abdomen [employer] [facility] 02/01/2026 8667-40 / [id number] / N/A Procedures Procedure Name Priority Date/Time Associated Diagnosis Comments NC INSERT/ REPLACE INFUSN PUMP,PROGRAMMABLE 12/14/2024 7:00 AM EDT End of battery life of intrathecal infusion pump Special Needs SCT 60; Sales And Catering Coordinator: Tito Case To Be Scheduled Date:Dec 14 Codes: Pump replacement:08844 Vendor: Medtronic Neuromonitoring: No Inpatient admission: No Postop transfer to Rehab Facility: No Other considerations: None ANATOMIC PATHOLOGY Routine 12/14/2024 12:00 AM EDT BASIC METABOLIC PANEL Routine 11/29/2024 1:57 PM EDT Other chronic pain PT-INR Routine 11/29/2024 1:57 PM EDT Other chronic pain CBC AND DIFFERENTIAL Routine 11/29/2024 1:57 PM EDT Other chronic pain MRSA NASAL SCREEN Routine 11/24/2024 3:5 8 PM EDT Other chronic pain from Last 3 Months Results * Anatomic Pathology (12/14/2024 12:00 AM EDT) 12/14/2024 12/14/2024 Narrative [facility] - 12/16/2024 6:49 PM EDT CASE: [id number] PATIENT: YANA KIMBALL Date: 1960 Sex: Male [facility] Department of Pathology [address] [place] [address] License No.: [id number] Cad Specialist: Dr. Branden Foy M.D., Ph.D. Physician: GREGG WALLS MD Procedure Date: 12/14/2024 Resident: Mars Allen M.D., Ph.D. Pathologist: Kei Elder M.D., Ph.D. PATHOLOGIC DIAGNOSIS: A. PAIN PUMP (ID ONLY): device processing engineer for gross examination only. CLINICAL DATA: History: End of battery life of intrathecal infusion pump. Operation: Replacement implant fusion device spine. TISSUE SUBMITTED: . Pain pump (ID only) GROSS DESCRIPTION: The specimen is received in 1 part, labeled with the patient's name and medical record number. Part A received fresh labeled Pain pump (ID only) consists of a teardrop-shaped metallic-silver, metal medical reimbursement manager (8.6 x 7.3 x 2.0 cm), bearing the inscriptions [employer] SYNCHROMED(r) II Programmable Pump , 8637-20 , [id number] and [employer] [place] . No soft tissue is grossly identified. Gross photographs are taken. No sections are submitted; this specimen is gross only. Dictated by: Isabelle Gray By his/her signature below, the senior physician certifies that he/she personally conducted a microscopic examination ( gross only exam if so stated) of the described specimen(s) and rendered or confirmed the diagnosis(es) related thereto. Final Diagnosis by Kei Elder M.D., Ph.D., Electronically signed on December at 06:49:09PM us Gregg Walls MD PATHOLOGY ORDERABLES Final Resul t Performing Organization Address [facility] Co de Phone Number [facility] [address] [place] [address] * PT-INR (11/29/2024 1:57 PM EDT) PT 10.6 9.4 - 12.5 sec [facility] INR 0.9 0.8 - 1.1 [facility] Blood 11/29/2024 1:57 PM EDT 11/29/2024 2:01 PM EDT us Gregg Walls MD LAB BLOOD ORDERABLES Final Resul t Performing Organization Address [facility] Co de Phone Number [facility] [address] [place] [address] * (ABNORMAL) CBC and differential (11/29/2024 1:57 PM EDT) WBC 4.50 4.00 - 11.00 K/uL [facility] RBC 4.41(L) 4.50 - 5.90 M/uL [facility] HGB 13.4(L) 13.5 - 17.5 g/dL [facility] HCT 40.5(L) 41.0 - 53.0 % [facility] PLT 215 150 - 450 K/uL [facility] MCV 91.8 80.0 - 100.0 fL [facility] MCH 30.4 27.0 - 31.0 pg [facility] MCHC 33.1 32.0 - 36.0 g/dL [facility] RDW 12.7 11.5 - 14.5 % [facility] MPV 9.7 8.4 - 12.0 fL [facility] NRBC 0.00 0.00 /100 WBCs [facility] ABSOLUTE NRBC 0.00 0.00 K/uL [facility] DIFF METHOD Auto [facility] NEUTS 58.4 48.0 - 76.0 % [facility] LYMPHS 27.6 18.0 - 41.0 % [facility] MONOS 9.1 4.0 - 11.0 % [facility] EOS 3.6 0.0 - 5.0 % [facility] BASOS 0.9 0.0 - 1.5 % [facility] % IMMATURE GRANS 0.4 0.0 - 0.9 % [facility] ABSOLUTE NEUTS 2.63 1.92 - 7.60 K/uL [facility] ABSOLUTE LYMPHS 1.24 0.72 - 4.10 K/uL [facility] ABSOLUTE MONOS 0.41 0.16 - 1.10 K/uL [facility] ABSOLUTE EOS 0.16 0.00 - 0.50 K/uL [facility] ABSOLUTE BASOS 0.04 0.00 - 0.15 K/uL [facility] ABS IMMATURE GRANS 0.02 0.00 - 0.09 K/uL [facility] Blood 11/29/2024 1:57 PM EDT 11/29/2024 2:01 PM EDT us Gregg Walls MD LAB BLOOD ORDERABLES Final Resul t Performing Organization Address [facility] [place] [address] * (ABNORMAL) Basic metabolic panel (11/29/2024 1:57 PM EDT) SODIUM 134 134 - 140 mmol/L [facility] CHLORIDE 98(L) 101 - 111 mmol/L [facility] POTASSIUM 4.5 3.6 - 5.0 mmol/L [facility] CO2 27 21 - 31 mmol/L [facility] BUN 6(L) 7 - 18 mg/dL [facility] CREATININE 0.72 0.62 - 1.20 mg/dL [facility] GLUCOSE 86 70 - 105 mg/dL [facility] CALCIUM 9.4 8.4 - 10.2 mg/dL [facility] EGFR 103 >59 mL/min/1.7 3m2 [facility] Comment:Estimated glomerular filtration rate calculated using the CKD-EPI refit equation. ANION GAP 9 3 - 17 mmol/L [facility] Blood 11/29/2024 1:57 PM EDT 11/29/2024 2:01 PM EDT us Gregg Walls MD LAB BLOOD ORDERABLES Final Resul t Performing Organization Address City/[facility] [place] [address] * MRSA Nasal Screen (11/24/2024 3:58 PM EDT) Special Requests None 11/24/2024 3:58 PM EDT [address] [place] [address] LAB MRSA Nasal Culture NO METHICILLIN RESISTANT STAPHYLOCOCCUS AUREUS ISOLATED 11/26/2024 9:06 AM EDT [facility] Other (Nasal) 11/24/2024 3:5 8 PM EDT 11/25/2024 2:08 AM EDT us Gregg Walls MD MICROBIOLOGY - GENERAL ORDERABLE S Final Result [facility] [address] [place] [address] 850 [facility] [address] [place] [address] from Last 3 Months Insurance [facility] MEDICARE REPLACEMENT MEDICARE PART A & B [facility] MEDICARE REPLACEMENT MEDICARE PART A & B [facility] MEDICARE REPLACEMENT MEDICARE PART A & [place] [facility] MEDICARE REPLACEMENT MEDICARE PART A & B [place] [facility] MEDICARE REPLACEMENT MEDICARE PART A & B [place] [facility] MEDICARE REPLACEMENT MEDICARE PART A & B [employer] Advance Directives For more information, please contact: [phone] (9AM - 5PM [place], Friday-Friday) Documents on File Type Date Recorded Patient Sales And Catering Coordinator Expl anation Healthcare Proxy 02/13/2018 12:47 PM * Full Code (Presumed) (Latest Code Status on File) Date Activated Date Inactivated Comments 05/19/2018 11:49 PM 07/02/2018 1:42 PM * Full Code (Presumed) Date Activated Date Inactivated Comments 02/12/2018 3:14 PM 05/19/2018 2:30 PM * Full Code (Presumed) Date Activated Date Inactivated Comments 02/12/2018 3:10 PM 02/12/2018 3:14 PM Healthcare Agents on File Name Relationship Healthcare Agent [facility] Communication Nel Jan Other .Primary Health Care Agent (Proxy form on file) Care Teams Lamp Shade Maker Relationship Specialty Start Date End Date Vijay Bravo DO [address] [place] [address] Dr [facility]AVILLA_[place]rological [place] [address] PCP - General Family Medicine 08/05/22 Farzad Arnett MD [address] [place] [address] Dr [facility]Neurological [place] [address] Neurosurgery 02/19/18 Additional Source Comments The information contained in this document represents components of the legal health record. It is not the complete legal health record.[facility]
--- OUTSIDE RECORDS SUMMARY | 2024-12-21 17:54 | XMS_ITS | Encounter Summary ---
Author Organization [facility] Address [address] [address] Phone Care Team Providers Care Manager Eligibility Name Role Phone Unknown, Unknown Primary Care Provider Farzad Urias MD Unavailable [phone] Vijay Bravo DO Primary Care Provider [phone] Reason for Visit * Reason Comments Medication Refill Encounter Details Date Type Department Care Team (Late st Contact Info) Description 04/30/2020 Refill [facility] [address] [address] Jett Reed DO [address] [place] [id number] [email or web address] Medication Refill Social History Tobacco Use Types [...] Description 12/27/2024 1:00 PM EDT Office Visit [facility] Pain Management 850 [facility] [address] [place] [address] Alina Guerrero MD [address] [place] [address] Department of Anesthesiology, CWN L1 [place] [address] [email or web address] 01/10/2025 2:15 PM EDT Procedure visit [facility] [place] [address] [place] [address] Jett Reed DO [address] [place] [address] [email or web address] documented as of this encounter Visit Diagnoses Not on filedocumented in this encounter Care Teams Manager Eligibility Relationship Specialty Start Date End Date Unknown, Unknown, MD PCP - General 02/11/18 08/04/22 Vijay Bravo DO [address] [place] [address] Dr MARAVILLA_[place]rological [place] [address] PCP - General Family Medicine 08/05/22 Farzad Arnett MD [address] [place] [address] Dr MARAVILLA_Neurological [place] [address] Neurosurgery 02/19/18 documented as of this encounter Additional Source Comments The information contained in this document represents components of the legal health record. It is not the complete legal health record.[facility]
--- OUTSIDE RECORDS SUMMARY | 2024-12-21 17:54 | XMS_ITS | Encounter Summary ---
Author Organization [facility] Address [address] [address] Phone Care Team Providers Care Sales And Production Manager Name Role Phone Unknown, Unknown Primary Care Provider Farzad Urias MD Unavailable [phone] Vijay Bravo DO Primary Care Provider [phone] Reason for Visit * Reason Comments Medication Refill Encounter Details Date Type Department Care Team (Late st Contact Info) Description 05/08/2021 Refill [facility] [address] [address] Jett Reed DO [address] [place] [address] CAREN@[email or web address] Medication Refill Social History Tobacco [...] 12/27/2024 1:00 PM EDT Office Visit [facility] Pain Management 850 [facility] [address] [place] [address] Alina Guerrero MD [address] [place] [address] Department of Anesthesiology, CWN L1 [place] [address] [email or web address] 01/10/2025 2:15 PM EDT Procedure visit [facility] [place] [address] [place] [address] Jett Reed DO [address] [place] [address] [email or web address] documented as of this encounter Visit Diagnoses Not on filedocumented in this encounter Care Teams Sales And Production Manager Relationship Specialty Start Date End Date Unknown, Unknown, MD PCP - General 02/11/18 08/04/22 Vijay Bravo DO [address] [place] [address] Dr MARAVILLA_[place]urological [place] [address] PCP - General Family Medicine 08/05/22 Farzad Arnett MD [address] [place] [address] Dr MARAVILLA_Neurological [place] [address] Neurosurgery 02/19/18 documented as of this encounter Additional Source Comments The information contained in this document represents components of the legal health record. It is not the complete legal health record.[facility]
--- OUTSIDE RECORDS SUMMARY | 2024-12-21 17:54 | XMS_ITS | Encounter Summary ---
Author Organization [facility] Address 399 [facility] [address] [place] [address] Phone Care Team Providers Care Emergency Medical Technician Name Role Phone Farzad Arnett MD Unavailable [phone] Vijay Bravo DO Primary Care Provider [phone] Reason for Visit * Reason Comments Medication Refill Encounter Details Date Type Department Care Team (Late st Contact Info) Description 02/09/2023 [facility]ill [facility] [address] [address] Jett Reed DO [address] [place] [address] CAREN@[email or web address] Medication Refill Social History Tobacco [...] Description 12/27/2024 1:00 PM EDT Office Visit [facility] [address] [place] [address] Alina Guerrero MD [address] [place] [address] Department of Anesthesiology, CWN L1 [place] [address] 01/10/2025 2:15 PM EDT Procedure visit [facility] [place] [address] [place] [address] Jett Reed DO [address] [place] [address] CAREN@[email or web address] documented as of this encounter Visit Diagnoses Not on filedocumented in this encounter Care Teams Emergency Medical Technician Relationship Specialty Start Date End Date Vijay Bravo DO [address] [place] [address] Dr KIMBLE 503_Neurological [place] [address] PCP - General Family Medicine 08/05/22 Farzad Arnett MD [address] [place] [address] Dr KIMBLE 503_Neurological [place] [address] Neurosurgery 02/19/18 documented as of this encounter Additional Source Comments The information contained in this document represents components of the legal health record. It is not the complete legal health record.[facility]
--- OUTSIDE RECORDS SUMMARY | 2024-12-21 17:54 | XMS_ITS | Encounter Summary ---
Author Organization [facility] Address [address] [address] Phone Care Team Providers Care Concaving Machine Operator Name Role Phone Unknown, Unknown Primary Care Provider Farzad Urias MD Unavailable [phone] Vijay Bravo DO Primary Care Provider [phone] Reason for Visit * Reason Comments Medication Refill Encounter Details Date Type Department Care Team (Late st Contact Info) Description 09/02/2020 Refill [facility] [address] [address] Jett Reed DO [address] [place] [address] CAREN@[email or web address] Medication Refill Social History Tobacco [...] Description 12/27/2024 1:00 PM EDT Office Visit [facility] Pain Management 850 [facility] [address] [place] [address] Alina Guerrero MD [address] [place] [address] Department of Anesthesiology, CWN L1 [place] [address] [email or web address] 01/10/2025 2:15 PM EDT Procedure visit [facility] [place] [address] [place] [address] Jett Reed DO [address] [place] [address] [email or web address] documented as of this encounter Visit Diagnoses Not on filedocumented in this encounter Care Teams Concaving Machine Operator Relationship Specialty Start Date End Date Unknown, Unknown, MD PCP - General 02/11/18 08/04/22 Vijay Bravo DO [address] [place] [address] Dr MARAVILLA_Neurological [place] [address] PCP - General Family Medicine 08/05/22 Farzad Arnett MD [address] [place] [address] Dr MARAVILLA_Neurological [place] [address] Neurosurgery 02/19/18 documented as of this encounter Additional Source Comments The information contained in this document represents components of the legal health record. It is not the complete legal health record.[facility]
--- OUTSIDE RECORDS SUMMARY | 2024-12-21 17:54 | XMS_ITS | Encounter Summary ---
Author Organization [facility] Address [address] [address] Phone Care Team Providers Care Social Service Assistant Name Role Phone Unknown, Unknown Primary Care Provider Farzad Urias MD Unavailable [phone] Vijay Bravo DO Primary Care Provider [phone] Reason for Visit * Reason Comments Medication Refill Encounter Details Date Type Department Care Team (Late st Contact Info) Description 02/11/2021 Refill [facility] [address] [address] Jett Reed DO [address] [place] [phone] CAREN@[email or web address] Medication Refill Social History Tobacco Use Types [...] Description 12/27/2024 1:00 PM EDT Office Visit [facility] Pain Management 850 [facility] [address] [place] [address] Alina Guerrero MD [address] [place] [address] Department of Anesthesiology, CWN L1 [place] [address] [email or web address] 01/10/2025 2:15 PM EDT Procedure visit [facility] [address] [place] [address] Jett Reed DO [address] [place] [address] [email or web address] documented as of this encounter Visit Diagnoses Not on filedocumented in this encounter Care Teams Social Service Assistant Relationship Specialty Start Date End Date Unknown, Unknown, MD PCP - General 02/11/18 08/04/22 Vijay Bravo DO [address] [place] [address] Dr MARAVILLA_Neurological [place] [address] PCP - General Family Medicine 08/05/22 Farzad Arnett MD [address] [place] [address] Dr MARAVILLA_Neurological [place] [address] Neurosurgery 02/19/18 documented as of this encounter Additional Source Comments The information contained in this document represents components of the legal health record. It is not the complete legal health record.[facility]
--- OUTSIDE RECORDS SUMMARY | 2024-12-21 17:55 | XMS_ITS | Encounter Summary ---
Author Organization [facility] Address [address] [address] Phone Care Team Providers Care Configuration Management Advisor Name Role Phone Unknown, Unknown Primary Care Provider Farzad Urias MD Unavailable [phone] Vijay Bravo DO Primary Care Provider Reason for Visit * Reason Comments Medication Refill Encounter Details Date Type Department Care Team (Late st Contact Info) Description 01/31/2020 Refill [facility] [address] [address] Jett Reed DO [address] [place] [phone] CAREN@[email or web address] Medication Refill Social History Tobacco Use [...] 1:00 PM EDT Office Visit [facility] Pain Management 850 [facility] [address] [place] [address] Alina Guerrero MD [address] [place] [address] Department of Anesthesiology, CWN L1 [place] [address] [email or web address] 01/10/2025 2:15 PM EDT Procedure visit [facility] [place] [address] [place] [address] Jett Reed DO [address] [place] [address] CAREN@[email or web address] documented as of this encounter Visit Diagnoses Not on filedocumented in this encounter Care Teams Configuration Management Advisor Relationship Specialty Start Date End Date Unknown, Unknown, MD PCP - General 02/11/18 08/04/22 Vijay Bravo DO [address] [place] [address] Dr MARAVILLA_[place]rological [place] [address] PCP - General Family Medicine 08/05/22 Farzad Arnett MD [address] [place] [address] Dr MARAVILLA_[place]urological [place] [address] Neurosurgery 02/19/18 documented as of this encounter Additional Source Comments The information contained in this document represents components of the legal health record. It is not the complete legal health record.[facility]
--- OUTSIDE RECORDS SUMMARY | 2024-12-21 17:55 | XMS_ITS | Encounter Summary ---
Author Organization [facility] Address 399 [facility] [address] [place] [address] Phone Care Team Providers Care Superintendent Automotive Name Role Phone Farzad Arnett MD Unavailable [phone] Vijay Bravo DO Primary Care Provider [phone] Reason for Visit * Reason Comments Medication Refill Encounter Details Date Type Department Care Team (Late st Contact Info) Description 07/15/2024 Refill [facility] [address] [address] Jett Reed DO [address] [place] [address] [email or web address] Medication Refill Social History Tobacco [...] Description 12/27/2024 1:00 PM EDT Office Visit [facility] Pain Management 850 [facility] [address] [place] [address] Alina Guerrero MD [address] [place] [address] Department of Anesthesiology, CWN L1 [place] [address] 01/10/2025 2:15 PM EDT Procedure visit [facility] [place] [address] [place] [address] Jett Reed DO [address] [place] [address] CAREN@[email or web address] documented as of this encounter Visit Diagnoses Not on filedocumented in this encounter Care Teams Superintendent Automotive Relationship Specialty Start Date End Date Vijay Bravo DO [address] [place] [address] Dr KIMBLE 503_Neurological [place] [address] PCP - General Family Medicine 08/05/22 Farzad Arnett MD [address] [place] [address] Dr KIMBLE 503_Neurological [place] [address] Neurosurgery 02/19/18 documented as of this encounter Additional Source Comments The information contained in this document represents components of the legal health record. It is not the complete legal health record.[facility]
--- OUTSIDE RECORDS SUMMARY | 2024-12-21 17:55 | XMS_ITS | Encounter Summary ---
Author Organization [facility] Address [address] [address] Phone Care Team Providers Care Neurodiagnostic Technologist Name Role Phone Unknown, Unknown Primary Care Provider Farzad Urias MD Unavailable [phone] Vijay Bravo DO Primary Care Provider [phone] Reason for Visit * Reason Comments Medication Refill Encounter Details Date Type Department Care Team (Late st Contact Info) Description 04/28/2022 Refill [facility] [address] [address] Jett Reed DO [address] [place] [address] CAREN@[email or web address] Medication Refill Social History Tobacco Use Types [...] Description 12/27/2024 1:00 PM EDT Office Visit [facility] Pain Management 850 [facility] [address] [place] [address] Alina Guerrero MD [address] [place] [address] Department of Anesthesiology, CWN L1 [place] [address] [email or web address] 01/10/2025 2:15 PM EDT Procedure visit [facility] [place] [address] [place] [address] Jett Reed DO [address] [place] [address] [email or web address] documented as of this encounter Visit Diagnoses Not on filedocumented in this encounter Care Teams Neurodiagnostic Technologist Relationship Specialty Start Date End Date Unknown, Unknown, MD PCP - General 02/11/18 08/04/22 Vijay Bravo DO [address] [place] [address] Dr MARAVILLA_[place]rological [place] [address] PCP - General Family Medicine 08/05/22 Farzad Arnett MD [address] [place] [address] Dr MARAVILLA_Neurological [place] [address] Neurosurgery 02/19/18 documented as of this encounter Additional Source Comments The information contained in this document represents components of the legal health record. It is not the complete legal health record.[facility]
--- OUTSIDE RECORDS SUMMARY | 2024-12-21 17:55 | XMS_ITS | Encounter Summary ---
Author Organization [facility] Address 399 [address] [facility] [address] [place] [address] Phone Care Team Providers Care Weed Burner Name Role Phone Unknown, Unknown Primary Care Provider Farzad Urias MD Unavailable [phone] Vijay Bravo DO Primary Care Provider [phone] Encounter Details Date Type Department Care Team (Late st Contact Info) Description 04/13/2018 Procedure Pass [facility] MRI, [place] 2 [address] [facility], 2nd [place] [address] Social History Tobacco Use Types Packs/Day Years [...] Description 12/27/2024 1:00 PM EDT Office Visit [facility] Pain Management 850 [facility] [address] [place] [address] Alina Guerrero MD 75 [facility] Department of Anesthesiology, [facility] L1 [place] [address] 01/10/2025 2:15 PM EDT Procedure visit [facility] [place] [address] [place], [place] [address] Jett Reed DO [address] [place] [address] [email or web address] documented as of this encounter Visit Diagnoses Not on filedocumented in this encounter Care Teams Weed Burner Relationship Specialty Start Date End Date Unknown, Unknown, MD PCP - General 02/11/18 08/04/22 Vijay Bravo DO [address] [place] [address] Dr MARAVILLA_[place]rological [place] [address] PCP - General Family Medicine 08/05/22 Farzad Arnett MD [address] [place] [address] Dr MARAVILLA_[place]urological [place] [address] Neurosurgery 02/19/18 documented as of this encounter Additional Source Comments The information contained in this document represents components of the legal health record. It is not the complete legal health record.[facility]
--- OUTSIDE RECORDS SUMMARY | 2024-12-21 17:55 | XMS_ITS | Encounter Summary ---
Author Organization [facility] Address [address] [address] Phone Care Team Providers Care Finished Metal Repairer Name Role Phone Unknown, Unknown Primary Care Provider Farzad Urias MD Unavailable [phone] Vijay Bravo DO Primary Care Provider [phone] Reason for Visit * Reason Comments Medication Refill Encounter Details Date Type Department Care Team (Late st Contact Info) Description 01/05/2020 Refill [facility] [address] [address] Jett Reed DO [address] [place] [address] CAREN@[email or web address] Medication Refill Social History Tobacco Use Types [...] Description 12/27/2024 1:00 PM EDT Office Visit [facility] Pain Management 850 [facility] [address] [place] [address] Alina Guerrero MD [address] [place] [address] Department of Anesthesiology, CWN L1 [place] [address] [email or web address] 01/10/2025 2:15 PM EDT Procedure visit [facility] [place] [address] [place] [address] Jett Reed DO [address] [place] [address] CAREN@[email or web address] documented as of this encounter Visit Diagnoses Not on filedocumented in this encounter Care Teams Finished Metal Repairer Relationship Specialty Start Date End Date Unknown, Unknown, MD PCP - General 02/11/18 08/04/22 Vijay Bravo DO [address] [place] [address] Dr MARAVILLA_[place]rological [place] [address] PCP - General Family Medicine 08/05/22 Farzad Arnett MD [address] [place] [address] Dr MARAVILLA_[place]rological [place] [address] Neurosurgery 02/19/18 documented as of this encounter Additional Source Comments The information contained in this document represents components of the legal health record. It is not the complete legal health record.[facility]
--- OUTSIDE RECORDS SUMMARY | 2024-12-21 17:55 | XMS_ITS | Encounter Summary ---
Author Organization [facility] Address [address] [place] [address] Phone Care Team Providers Care Coal Grader Name Role Phone Farzad Arnett MD Unavailable Vijay Bravo DO Primary Care Provider [phone] Encounter Details Date Type Department Care Team (Late st Contact Info) Description 12/14/2024 Telephone [facility] Pain Management 850 [facility] [address] [place] [address] Jackie Melton [address] [place] [address] [email or web address] Social History Tobacco Use Types Packs/Day Years [...] high school, GED, job training, learning the Nepalese language, technical skills, or developing parenting skills)? [...] on file documented as of this encounter Progress Notes * Jackie Melton - 12/14/2024 4:05 PM EDT Good Afternoon Art [place] called and requested to speak with you, can you please give him a call. Jackie Rutledge documented in this encounter Plan of Treatment Upcoming Encounters Date Type Department Care Team (Late st Contact Info) Description 12/27/2024 1:00 PM EDT Office Visit [facility] Pain Management 850 [facility] [address] [place] [address] Alina Guerrero MD [address] [place] Department of Anesthesiology, [facility] L1 [place] [address] 01/10/2025 2:15 PM EDT Procedure visit [facility] [place] [address] [place] [address] Jett Reed DO [address] [place] [address] [email or web address] documented as of this encounter Visit Diagnoses Not on filedocumented in this encounter Care Teams Coal Grader Relationship Specialty Start Date End Date Vijay Bravo DO [address] [place] [address] Dr MARAVILLA_[place]urological [place] [address] PCP - General Family Medicine 08/05/22 Farzad Arnett MD [address] [place] [address] Dr MARAVILLA_Neurological [place] [address] Neurosurgery 02/19/18 documented as of this encounter Additional Source Comments The information contained in this document represents components of the legal health record. It is not the complete legal health record.[facility]
--- OUTSIDE RECORDS SUMMARY | 2024-12-21 17:55 | XMS_ITS | Encounter Summary ---
Author Organization [facility] Address [address] [address] Phone Care Team Providers Care Apprentice Technician Name Role Phone Unknown, Unknown Primary Care Provider Farzad Urias MD Unavailable [phone] Vijay Bravo DO Primary Care Provider [phone] Reason for Visit * Reason Comments Medication Refill Encounter Details Date Type Department Care Team (Late st Contact Info) Description 11/02/2020 Refill [facility] [address] [address] Jett Reed DO [address] [place] [address] CAREN@[email or web address] Medication Refill Social History Tobacco Use [...] [facility] Pain Management 850 [facility] [address] [place] [address] Alina Guerrero MD [address] [place] [address] Department of Anesthesiology, CWN L1 [place] [address] [email or web address] 01/10/2025 2:15 PM EDT Procedure visit [facility] [place] [address] [place] [address] Jett Reed DO [address] [place] [address] [email or web address] documented as of this encounter Visit Diagnoses Not on filedocumented in this encounter Care Teams Apprentice Technician Relationship Specialty Start Date End Date Unknown, Unknown, MD PCP - General 02/11/18 08/04/22 Vijay Bravo DO [address] [place] [address] Dr MARAVILLA_[place]rological [place] [address] PCP - General Family Medicine 08/05/22 Farzad Arnett MD [address] [place] [address] Dr MARAVILLA_Neurological [place] [address] Neurosurgery 02/19/18 documented as of this encounter Additional Source Comments The information contained in this document represents components of the legal health record. It is not the complete legal health record.[facility]
--- OUTSIDE RECORDS SUMMARY | 2024-12-21 17:55 | XMS_ITS | Encounter Summary ---
Author Organization [facility] Address [address] [place] [address] Phone Care Team Providers Care Data Processing Control Clerk Name Role Phone Farzad Arnett MD Unavailable [phone] Vijay Bravo DO Primary Care Provider [phone] Encounter Details Date Type Department Care Team (Late st Contact Info) Description 12/14/2024 Procedure Pass [facility] Periop [address] [place] [address] Social History Tobacco Use Types Packs/Day Years [...] high school, GED, job training, learning the Polish language, technical skills, or developing parenting skills)? [...] 1:00 PM EDT Office Visit [facility] Pain Management 850 [facility] [address] [place] [address] Alina Guerrero MD 75 [facility] Department of Anesthesiology, [facility] [address] [place] [address] 01/10/2025 2:15 PM EDT Procedure visit [facility] [address] [address] Jett Reed DO [address] [place] [address] [email or web address] documented as of this encounter Visit Diagnoses Not on filedocumented in this encounter Care Teams Data Processing Control Clerk Relationship Specialty Start Date End Date Vijay Bravo DO [address] [place] [address] Dr KIMBLE [address]_[place]rological [place] [address] PCP - General Family Medicine 08/05/22 Farzad Arnett MD [address] [place] [address] Dr KIMBLE 503_[place]rological [place] [address] Neurosurgery 02/19/18 documented as of this encounter Additional Source Comments The information contained in this document represents components of the legal health record. It is not the complete legal health record.[facility]
--- OUTSIDE RECORDS SUMMARY | 2024-12-21 17:55 | XMS_ITS | Encounter Summary ---
Author Organization [facility] Address [address] [address] Phone Care Team Providers Care Outpatient Program Coordinator Name Role Phone Unknown, Unknown Primary Care Provider Farzad Urias MD Unavailable [phone] Vijay Bravo DO Primary Care Provider [phone] Reason for Visit * Reason Comments Medication Refill Encounter Details Date Type Department Care Team (Late st Contact Info) Description 11/01/2021 Refill [facility] [address] [address] Jett Reed DO [address] [place] [address] [email or web address] Medication Refill Social History [...] Description 12/27/2024 1:00 PM EDT Office Visit [facility] Pain Management 850 [facility] [address] [place] [address] Alina Guerrero MD [address] [place] [address] Department of Anesthesiology, CWN L1 [place] [address] [email or web address] 01/10/2025 2:15 PM EDT Procedure visit [facility] [place] [address] [place] [address] Jett Reed DO [address] [place] [address] [email or web address] documented as of this encounter Visit Diagnoses Not on filedocumented in this encounter Care Teams Outpatient Program Coordinator Relationship Specialty Start Date End Date Unknown, Unknown, MD PCP - General 02/11/18 08/04/22 Vijay Bravo DO [address] [place] [address] Dr MARAVILLA_Neurological [place] [address] PCP - General Family Medicine 08/05/22 Farzad Arnett MD [address] [place] [address] Dr MARAVILLA_Neurological [place] [address] Neurosurgery 02/19/18 documented as of this encounter Additional Source Comments The information contained in this document represents components of the legal health record. It is not the complete legal health record.[facility]
--- OUTSIDE RECORDS SUMMARY | 2024-12-21 17:55 | XMS_ITS | Encounter Summary ---
Author Organization [facility] Address [address] [place] [address] Phone Care Team Providers Care Docketing Specialist Name Role Phone Farzad Arnett MD Unavailable [phone] Vijay Bravo DO Primary Care Provider [phone] Encounter Details Date Type Department Care Team (Late st Contact Info) Description 11/29/2024 Orders Only [facility] [address] [address] Jett Reed DO [address] [place] [id number] [email or web address] Social History Tobacco Use Types Packs/Day Years [...] high school, GED, job training, learning the Angolan language, technical skills, or developing parenting skills)? [...] Description 12/27/2024 1:00 PM EDT Office Visit [facility] Pain Management 850 [facility] [address] [place] [address] Alina Guerrero MD [address] [place] [address] Department of Anesthesiology, [facility] L1 [place] [address] 01/10/2025 2:15 PM EDT Procedure visit [facility] [address] [address] Jett Reed DO [address] [place] [address] CAREN@[email or web address] documented as of this encounter Visit Diagnoses Not on filedocumented in this encounter Care Teams Docketing Specialist Relationship Specialty Start Date End Date Vijay Bravo DO [address] [place] [address] Dr MARAVILLA_Neurological [place] [address] PCP - General Family Medicine 08/05/22 Farzad Arnett MD [address] [place] [address] Dr MARAVILLA_Neurological [place] [address] Neurosurgery 02/19/18 documented as of this encounter Additional Source Comments The information contained in this document represents components of the legal health record. It is not the complete legal health record.[facility]
--- OUTSIDE RECORDS SUMMARY | 2024-12-21 17:55 | XMS_ITS | Encounter Summary ---
Author Organization [facility] Address [address] [address] Phone Care Team Providers Care Arch Pad Cementer Name Role Phone Unknown, Unknown Primary Care Provider Farzad Urias MD Unavailable [phone] Vijay Bravo DO Primary Care Provider [phone] Reason for Visit * Reason Comments Medication Refill Encounter Details Date Type Department Care Team (Late st Contact Info) Description 11/06/2020 Refill [facility] [address] [address] Jett Reed DO [address] [place] [address] CAREN@[email or web address] Medication Refill Social History Tobacco Use Types [...] 12/27/2024 1:00 PM EDT Office [facility] Pain Management 850 [facility] [address] [place] [address] Alina Guerrero MD [address] [place] [address] Department of Anesthesiology, CWN L1 [place] [address] [email or web address] 01/10/2025 2:15 PM EDT Procedure visit [facility] [place] [address] [place] [address] Jett Reed DO [address] [place] [address] TIAMARCI@[email or web address] documented as of this encounter Visit Diagnoses Not on filedocumented in this encounter Care Teams Arch Pad Cementer Relationship Specialty Start Date End Date Unknown, Unknown, MD PCP - General 02/11/18 08/04/22 Vijay Bravo DO [address] [place] [address] Dr MARAVILLA_Neurological [place] [address] PCP - General Family Medicine 08/05/22 Farzad Arnett MD [address] [place] [address] Dr MARAVILLA_Neurological [place] [address] Neurosurgery 02/19/18 documented as of this encounter Additional Source Comments The information contained in this document represents components of the legal health record. It is not the complete legal health record.[facility]
--- OUTSIDE RECORDS SUMMARY | 2024-12-21 17:55 | XMS_ITS | Clinical Summary ---
Author Organization [facility] Address [address] [place] [address] Care Team Providers Care Superintendent Drivers Name Role Phone Unavailable Primary Care Provider [...] Zoster (Shingles) Vaccine (1 of 2) 06/27/2011 Influenza Vaccine 11/05/2024 COVID-19 Vaccine ( - 2023-2 5 season) 2024 RSV Vaccine 60 years and old er and Patients (1 - 1-dose 75+ series) 2036 Hepatitis B Vaccines Aged Out No long er eligible based on patient's age to complete this topic Insurance [facility]
--- OUTSIDE RECORDS SUMMARY | 2024-12-21 17:55 | XMS_ITS | Encounter Summary ---
Author Organization [facility] Address [address] [address] Phone Care Team Providers Care Down Filler Name Role Phone Unknown, Unknown Primary Care Provider Farzad Urias MD Unavailable [phone] Vijay Bravo DO Primary Care Provider [phone] Reason for Visit * Reason Comments Medication Refill Encounter Details Date Type Department Care Team (Late st Contact Info) Description 07/30/2021 Refill [facility] [address] [address] Jett Reed DO [address] [place] [address] [email or web address] Medication Refill Social History [...] Description 12/27/2024 1:00 PM EDT Office Visit [facility] Pain Management 850 [facility] [address] [place] [address] Alina Guerrero MD [address] [place] [address] Department of Anesthesiology, CWN L1 [place] [address] [email or web address] 01/10/2025 2:15 PM EDT Procedure visit [facility] [place] [address] [place] [address] Jett Reed DO [address] [place] [address] [email or web address] documented as of this encounter Visit Diagnoses Not on filedocumented in this encounter Care Teams Down Filler Relationship Specialty Start Date End Date Unknown, Unknown, MD PCP - General 02/11/18 08/04/22 Vijay Bravo DO [address] [place] [address] Dr MARAVILLA_Neurological [place] [address] PCP - General Family Medicine 08/05/22 Farzad Arnett MD [address] [place] [address] Dr MARAVILLA_Neurological [place] [address] Neurosurgery 02/19/18 documented as of this encounter Additional Source Comments The information contained in this document represents components of the legal health record. It is not the complete legal health record.[facility]
--- OUTSIDE RECORDS SUMMARY | 2024-12-21 17:55 | XMS_ITS | Encounter Summary ---
Author Organization [facility] Address [address] [address] Phone Care Team Providers Care Diesel Service Technician Name Role Phone Unknown, Unknown Primary Care Provider Farzad Urias MD Unavailable [phone] Vijay Bravo DO Primary Care Provider [phone] Reason for Visit * Reason Comments Medication Refill Encounter Details Date Type Department Care Team (Late st Contact Info) Description 11/16/2019 Refill [facility] [address] [address] Jett Reed DO [address] [place] [address] CAREN@[email or web address] Medication Refill Social History [...] Description 12/27/2024 1:00 PM EDT Office Visit [facility] Pain Management 850 [facility] [place] [facility] [address] [place] [address] Alina Guerrero MD [address] [place] [address] Department of Anesthesiology, CWN L1 [place] [address] [email or web address] 01/10/2025 2:15 PM EDT Procedure visit [facility] [place] [address] [place] [address] Jett Reed DO [address] [place] [address] CAREN@[email or web address] documented as of this encounter Visit Diagnoses Not on filedocumented in this encounter Care Teams Diesel Service Technician Relationship Specialty Start Date End Date Unknown, Unknown, MD PCP - General 02/11/18 08/04/22 Vijay Bravo DO [address] [place] [address] Dr MARAVILLA_Neurological [place] [address] PCP - General Family Medicine 08/05/22 Farzad Arnett MD [address] [place] [address] Dr MARAVILLA_Neurological [place] [address] Neurosurgery 02/19/18 documented as of this encounter Additional Source Comments The information contained in this document represents components of the legal health record. It is not the complete legal health record.[facility]
--- OUTSIDE RECORDS SUMMARY | 2024-12-21 17:55 | XMS_ITS | Encounter Summary ---
Author Organization [facility] Address 399 [facility] [address] [place] [address] Phone Care Team Providers Care Supervisor Nurse Name Role Phone Farzad Arnett MD Unavailable [phone] Vijay Bravo DO Primary Care Provider [phone] Reason for Visit * Reason Comments Medication Refill Encounter Details Date Type Department Care Team (Late st Contact Info) Description 11/02/2022 Refill [facility] [address] [address] Jett Reed DO [address] [place] [address] CAREN@[email or web address] Medication Refill Social History Tobacco Use Types [...] 12/27/2024 1:00 PM EDT Office Visit [facility] Pain Management 850 [facility] [address] [place] [address] Alina Guerrero MD [address] [place] [address] Department of Anesthesiology, CWN L1 [place] [address] 01/10/2025 2:15 PM EDT Procedure visit [facility] [place] [address] [place] [address] Jett Reed DO [address] [place] [address] CAREN@[email or web address] documented as of this encounter Visit Diagnoses Not on filedocumented in this encounter Care Teams Supervisor Nurse Relationship Specialty Start Date End Date Vijay Bravo DO [address] [place] [address] Dr KIMBLE 503_Neurological [place] [address] PCP - General Family Medicine 08/05/22 Farzad Arnett MD [address] [place] [address] Dr KIMBLE 503_Neurological [place] [address] Neurosurgery 02/19/18 documented as of this encounter Additional Source Comments The information contained in this document represents components of the legal health record. It is not the complete legal health record.[facility]
--- OUTSIDE RECORDS SUMMARY | 2024-12-21 17:55 | XMS_ITS | Encounter Summary ---
Author Organization [facility] Address [address] [address] Phone Care Team Providers Care Swaging Machine Adjuster Name Role Phone Unknown, Unknown Primary Care Provider Farzad Urias MD Unavailable [phone] Vijay Bravo DO Primary Care Provider [phone] Reason for Visit * Reason Comments Medication Refill Encounter Details Date Type Department Care Team (Late st Contact Info) Description 02/04/2020 Refill [facility] [address] [address] Jett Reed DO [address] [place] [address] CAREN@[email or web address] [email or web address] [email or web address] Medication Refill Social History Tobacco Use Types [...] Description 12/27/2024 1:00 PM EDT Office Visit [facility] Pain Management 850 [facility] [address] [place] [address] Alina Guerrero MD [address] [place] [address] Department of Anesthesiology, CWN L1 [place] [address] [email or web address] 01/10/2025 2:15 PM EDT Procedure visit [facility] [place] [address] [place] [address] Jett Reed DO [address] [place] [address] CAREN@[email or web address] [place] [email or web address] documented as of this encounter Visit Diagnoses Not on filedocumented in this encounter Care Teams Swaging Machine Adjuster Relationship Specialty Start Date End Date Unknown, Unknown, MD PCP - General 02/11/18 08/04/22 Vijay Bravo DO [address] [place] [address] Dr MARAVILLA_Ne[place]rological [place] [address] PCP - General Family Medicine 08/05/22 Farzad Arnett MD [address] [place] [address] Dr MARAVILLA_Neurological [place] [address] Neurosurgery 02/19/18 documented as of this encounter Additional Source Comments The information contained in this document represents components of the legal health record. It is not the complete legal health record.[facility]
--- OUTSIDE RECORDS SUMMARY | 2024-12-21 17:55 | XMS_ITS | Encounter Summary ---
Author Organization [facility] Address [address] [address] Phone Care Team Providers Care Trauma Coordinator Name Role Phone Unknown, Unknown Primary Care Provider Farzad Urias MD Unavailable [phone] Vijay Bravo DO Primary Care Provider [phone] Reason for Visit * Reason Comments Medication Refill Encounter Details Date Type Department Care Team (Late Contact Info) Description 10/26/2020 Refill [facility] [address] [address] Traci Peterson MD, MPH [address] [place] [address] [email or web address] Medication Refill Social History Tobacco Use Types [...] Upcoming Encounters Date Type Department Care Team ([facility] Contact Info) Description 12/27/2024 1:00 PM EDT Office Visit [facility] Pain Management [address] [facility] [address] [place] [address] Alina Guerrero MD [address] [place] [address] Department of Anesthesiology, CWN L1 [place] [address] [email or web address] 01/10/2025 2:15 PM EDT Procedure visit [facility] [place] [address] [place] [address] Jett Reed DO [address] [place] [address] [email or web address] documented as of this encounter Visit Diagnoses Not on filedocumented in this encounter Care Teams Trauma Coordinator Relationship Specialty Start Date End Date Unknown, Unknown, MD PCP - General 02/11/18 08/04/22 Vijay Bravo DO [address] [facility] Dr MARAVILLA_[place] [address] PCP - General Family Medicine 08/05/22 Farzad Arnett MD [address] [place] [address] Dr MARAVILLA_Neurological [place] [address] Neurosurgery 02/19/18 documented as of this encounter Additional Source Comments The information contained in this document represents components of the legal health record. It is not the complete legal health record.[facility]
== END 2024-12-21 14:59 | disposition home or self-care (01) ==
LOC: HO.HVS 14:06
PROVIDERS: PCP Internal Medicine; Visit Provider Surgery Vascular Surgery
DX: I83.12 Varicose veins of left lower extremity with inflammation (principal)
CPT/HCPCS: 99214

== ENCOUNTER 2025-01-03 10:42 | Outpatient (REF) | payer OTHER, SELFPAY ==
[2025-01-03 14:14] LABS: MANUAL DIFF FLAG NO
[2025-01-03 14:19] LABS: Hematocrit 39.7 % (42.0-52.0); Hemoglobin 13.1 g/dl (14.0-18.0); Imm Gran Abs Auto 0.02 X10*3/uL (0.00-0.03); Imm Gran Pct Auto 0.5 % (0.0-0.4); Lymphocytes Absolute Auto 1.0 X10*3/uL (1.2-4.9); Mean Corpuscular HGB Conc 33.0 g/dl (31.0-36.0); Mean Corpuscular Hemoglobin 29.8 pg (27.0-33.0); Mean Corpuscular Volume 90.2 fL (80.0-98.0); NRBC Abs Auto 0.000 X10*3/uL (0.0-0.012); NRBC Pct Auto 0.0 /100WBC (0.0-0.2); Platelet Count 224 X10*3/uL (160-400); Red Blood Count 4.40 X10*6/uL (4.60-5.80); White Blood Count 4.0 X10*3/uL (4.8-10.8)
[2025-01-03 14:45] LABS: Alanine Aminotransferase 26 U/L (0-40); Albumin Level 4.6 g/dL (3.5-5.0); Alkaline Phosphatase 70 U/L (39-117); Anion Gap 12 (12-20); Aspartate Amino Transferase 32 U/L (5-37); Blood Urea Nitrogen 8 mg/dL (9-16); Calcium 9.5 mg/dL (8.4-10.2); Carbon Dioxide 31 mmol/L (22-29); Chloride 96 mmol/L (96-108); Cholesterol 221 mg/dL (<200); Estimated Glomerular Filt Rate > 60; HDL Cholesterol 59 mg/dL (>40); Potassium 4.5 mmol/L (3.3-5.1); Sodium 134 mmol/L (135-145); Total Protein 7.5 g/dL (6.5-8.0); Triglycerides 57 mg/dL (<150)
[2025-01-03 15:06] LABS: Folate 15.4 ng/mL (> or = 4.0); Vitamin B12 658 pg/mL (200-900)
== END 2025-01-03 10:43 | disposition home or self-care (01) ==
LOC: HO.WFDLDS 10:42
PROVIDERS: PCP Internal Medicine; Visit Provider Internal Medicine
DX: Z00.00 Encounter for general adult medical examination without abnormal findings (principal); Z12.11 Encounter for screening for malignant neoplasm of colon; I73.9 Peripheral vascular disease, unspecified; M21.371 Foot drop, right foot; M21.372 Foot drop, left foot; R21 Rash and other nonspecific skin eruption; Z87.828 Personal history of other (healed) physical injury and trauma
CPT/HCPCS: 36415; 80053; 80061; 82607; 82746; 83036; 85025

== ENCOUNTER 2025-01-03 10:42 | Outpatient (AMB) | payer OTHER, SELFPAY ==
--- OUTSIDE RECORDS SUMMARY | 2018-05-19 15:00 | XMS_ITS | Encounter Summary ---
Author Organization [facility] Address [address] [place] [address] Phone Care Team Providers Care Electric Switch Tester Name Role Phone Unknown, Unknown Primary Care Provider Farzad Urias MD Unavailable [phone] Encounter Details Date Type Department Care Team (Late st Contact Info) Description 05/19/2018 2:00 PM EST Hospital Encounter [facility] [address] [place] [address] Social History Tobacco Use Types Packs/Day Years [...] high school, GED, job training, learning the Azeri language, technical skills, or developing parenting skills)? [...] Care Team (Late st Contact Info) Description 01/10/2025 2:15 PM EDT Procedure visit [facility] [address] [address] Jett Reed DO [address] [place] [id number] [email or web address] documented as of this encounter Procedures Procedure Name Priority Date/Time Associated Diagnosis Comments FL FLUOROSCOPY MORE THAN 1 HOUR Routine 05/19/2018 5:36 PM EST documented in this encounter Results * [place] FLUOROSCOPY MORE THAN 1 HOUR (05/19/2018 5:36 PM EST) Narrative CARLOSH - 05/19/2018 5:37 PM EST This imaging order was used as part of a OR case and the order has be auto-finalized. Joshua Garcia MD [facility] [place] AMIGO Final Result [facility] documented in this encounter Visit Diagnoses Not on filedocumented in this encounter Care Teams Electric Switch Tester Relationship Specialty Start Date End Date Unknown, Unknown, MD PCP - General 02/11/18 08/04/22 Farzad Arnett MD [address] [place] [address] Dr KIMBLE [address]_Ne[place]rological [place] [address] Neurosurgery 02/19/18 documented as of this encounter Additional Source Comments The information contained in this document represents components of the legal health record. It is not the complete legal health record.[facility]
--- OUTSIDE RECORDS SUMMARY | 2024-12-31 12:12 | XMS_ITS | Continuity of Care Document ---
Author Organization [facility] Address [address] [place] [address] Phone Care Team Providers Care Ornamental Metal Worker Apprentice Name Role Phone Jett Duncan MD Unavailable [...] Rich Plasma PRP Injection Offic/outpt E&m Estab Mod-wy 4 25 Acromio/clavicular canvas&we Offic/outpt E&m Estab Mod-wy 4 25 Offic/outpt E&m Estab Mod-[facility] 24 Offic/outpt E&m Estab Mod-wy 2 24 Rad Exam Shoulder; Comp Offic/outpt E&m Estab Mod-wy 2 24 Rad Exam Knee; 4 View Offic/outpt E&m Estab Mod-wy 4 21 Offic/outpt E&m New Mod Sever 0 Offic/outpt E&m Estab Mod-wy 4 20 Offic/outpt E&m Estab Mod-wy 4 20 Postop F/u Visit Incld [facility] 0 Postop F/u Visit Incld [facility] 0 Postop F/u Visit Inc[facility] 0 Arthros Knee; W/menisect (med/ 20 Offic/outpt E&m Estab Mod-wy 4 20 Offic/outpt E&m Estab Mod-wy 2 20 Offic/outpt E&m [facility] [place] [facility] [place] 0 Advance Directives Directive Yes / No Effective Date File Name No Information Encounters Encounter Description Practice Location Reason(s) For Visit Diagnoses Date Provider Providers Copied on Encounter [facility], [address] [facility] [address], [place], [place], [address], [place] tel:[phone] /[facility]A No Information Dec-2 5 Perla Frausto. [address] [facility], [facility] [address], [place], [place], [address] , [place]. tel: [phone] Offic/outpt E&m Estab Mod-hi 4 [facility], [address] [facility], [place], [place], [address], [place] tel:[phone] /[facility] Acute pain of left shoulderTraum atic complete tear of left rotator cuff, subsequent encounterArth ritis of left acromioclavic ular jointS/P arthroscopy of left shoulderObesi ty, unspecified Sep-0 5 Perla Frausto. [address] [facility], [facility] [address], [place], [place], [address] , [place]. tel: [phone] Referring Provider: Jett Mcnulty, [address] [address], [place], [address] . tel:[phone] Offic/outpt E&m Estab Mod-hi 4 [facility], [address] [facility] [address], [place], [place], [address], [place] tel:[phone] /[facility] Acute pain of left shoulderObesi ty, unspecifiedAr thritis of left acromioclavic ular jointTraumati c complete tear of left rotator cuff, subsequent encounterS/P arthroscopy of left shoulder 5 Perla Frausto. [address] [facility], [facility] [address], [place], [place], [address] , [place]. tel: [phone] Referring Provider: Jett Mcnulty, [address] [facility] [address], [place], [address] . tel:[phone] Offic/outpt E&m Estab Mod-hi 4 [facility], [address] [facility] [address], [place], [place], [address], [place] tel:[phone] /[facility] Arthritis of left acromioclavic ular jointTraumati c complete tear of left rotator cuff, subsequent encounterS/P arthroscopy of left shoulderObesi ty, unspecified 5 Perla Frausto. [address] [facility], [address], [place], [place], [address] , [place]. tel:[phone] Referring Provider: Jett Mcnulty, [address] [facility] [address], [place], [address] . tel:[phone] Offic/outpt E&m Estab Mod-hi 4 [facility], [address] [facility] [address], [place], [place], [address], [place] tel:[phone] /[facility] Obesity, unspecifiedAr thritis of left acromioclavic ular jointTraumati c complete tear of left rotator cuff, subsequent encounterS/P arthroscopy of left shoulder 5 Perla Frausto. [address] [facility], [address], [place], [place], [address] , [place]. tel:[phone] Referring Provider: Jett Mcnulty, [address] [facility] [address], [place], [address] . tel:[phone] [facility], [address] [facility] [address] [facility] [address], [place], [place], [address], [place] tel:[phone] /[facility] Obesity, unspecifiedS/ P arthroscopy of left shoulder 5 Perla Frausto. [address] [facility], [address], [place], [place], [address] , [place]. tel:[phone] Referring Provider: Jett Mcnulty, [address] [facility] [address], [place], [address] . tel:[phone] [facility], [address] [facility], [place], [place], [address], [place] tel:[phone] /[facility] S/P arthroscopy of left shoulderObesi ty, unspecified Mar-2 4-202 5 Perla Frausto. [address], [place], [address] , [place]. tel:[phone] Referring Provider: Jett Mcnulty, [address], [place], [address] . tel:[phone] [facility], [address], [place], [place], [address], [place] tel:[phone] /[facility] S/p Left shoulder (chief complaint) Obesity, unspecifiedS/ P arthroscopy of left shoulder 5 Jose Muniz . [address], [place], [place], [address] , [place]. tel:[phone] Referring Provider: Jett Mcnulty, [address] [facility] [address], [place], [address] . tel:[phone] [facility], [address], [place], [address], [place] tel:[phone] /[facility] S/P arthroscopy of left shoulderObesi ty, unspecified 5 Perla Frausto. [address], [facility] [address], [place], [address] , [place]. tel:[phone] Referring Provider: Jett Mcnulty, [address] [facility] [address], [place], [address] . tel:[phone] [facility], [address], [place], [place], [address], [place] tel:[phone] /[facility] No Information 5 Perla Frausto. [address], [place], [place], [address] , [place]. tel:[phone] Referring Provider: Jett Mcnulty, [address] [facility] [address], [place], [address] . tel:[phone] Offic/outpt E&m Estab Mod-hi 4 [facility], [address] [address], [place], [address], [place] tel:[phone] /[facility] Obesity, unspecifiedAc [place] pain of left shoulderArthr itis of left acromioclavic ular jointTraumati c complete tear of left rotator cuff, subsequent encounterRupt ure of left biceps tendon, initial encounter Apr- 5 Perla Frausto. [address] [facility], [facility] [address], [place], [place], [address] , [place]. tel:[phone] Referring Provider: Jett Mcnulty, [address], [address] . tel:[phone] Offic/outpt E&m Estab Mod-hi 4 [facility], [address], [id number], [place] tel:[phone] /[facility] Acute pain of left shoulderArthr itis of left acromioclavic ular jointRupture of left biceps tendon, initial encounterTrau matic complete tear of left rotator cuff, subsequent encounterObes ity, unspecified 5 Perla Frausto. [address] [facility], [address] [address], [place], [place], [address] , [place]. [phone] Referring Provider: Jett Mcnulty, [address], [address] . tel:[phone] Offic/outpt E&m Estab Mod-hi 4 [facility], [address] [address], [place], [place], [address], [place] tel:[phone] /[facility] Obesity, unspecifiedAc [place] pain of left shoulderTraum atic complete tear of left rotator cuff, initial encounterRupt ure of left biceps tendon, initial encounterArth ritis of left acromioclavic ular joint Dec-0 4 Perla Frausto. [address] [facility], [facility] [address], [place], [place], [address] , [place]. tel:[phone] Referring Provider: Jett Mcnulty, [address], [place], [address] . tel:[phone] Offic/outpt E&m Estab Mod-hi 2 [facility], [address], [place], [place], [address], [place] tel:[phone] /[facility] left shoulder (chief complaint) Acute pain of left shoulder 4 Jose Muniz . [address], [place], [place], [address] , [place]. tel:[phone] Referring Provider: Flavio Garcia, [address], [place], [address] . tel:[phone] Offic/outpt E&m Estab Mod-hi 2 [facility], [address], [place], [address], [place] tel:[phone] /[facility] Left shoulder (chief complaint) Acute pain of left shoulderObesi ty, unspecified 4 Jose Muniz . [address] [facility], [address], [place], [place], [address] , [place]. tel:[phone] Referring Provider: Flavio Garcia, [address] [facility] [address], [place], [address] . tel:[phone] Offic/outpt E&m Estab Mod-hi 4 [facility], [address], [place], [address], [place] tel:[phone] /[facility] S/P right knee arthroscopyOb esity, unspecifiedCh ondromalacia of right kneeRight anterior knee painWork related injury 1 Perla Frausto. [address] [facility], [address], [place], [place], [address] , [place]. tel:[phone] Referring Provider: Jett Mcnulty, [address] [facility] [address], [place], [address] . tel:[phone] Offic/outpt E&m New Mod Sever [facility], [address] [address], [place], [place], [address], [place] tel:[phone] [facility] (R) knee injury (chief complaint) Right anterior knee painH/O fracture of patellaWork related injuryObesity , unspecified 0 Matt Montez. [address] [facility], [facility] [address], [place], [place], [address] , [place]. tel:[phone] Referring Provider: Tc Mcdermott, [address] [address], [place], [address] . tel:[phone] Offic/outpt E&m [facility] Mod-hi 4 [facility], [address] [address], [place], [place], [address], [place] tel:[phone] [facility] Obesity, unspecifiedS/ P right knee arthroscopy 0 Perla Frausto. [address] [facility], [address], [address] , [place]. tel:[phone] Referring Provider: Jett Mcnulty, [address] [address], [place], [address] . tel:[phone] Offic/outpt E&m [facility] Mod-hi 4 [facility], [address] [address], [place], [place], [address], [place] tel:[phone] [facility] S/P right knee arthroscopy 0 Perla Frausto. [address] [facility], [address] [address], [place], [place], [address] , [place]. tel:[phone] Referring Provider: Jett Mcnulty, [address] [address], [place], [address] . tel:[phone] [facility], [address] [address], [place], [place], [address], [place] tel:[phone] [facility] S/P right knee arthroscopy 0 Perla Frausto. [address], [place], [place], [address] , [place]. [phone] Referring Provider: Jett Mcnulty, [address], [place], [address] . tel:[phone] [facility], [address], [place], [place], [address], [place] tel:[phone] [facility] Obesity, unspecifiedS/ P right knee arthroscopy 0 Perla Frausto. [address], [place], [place], [address] , [place]. [phone] Referring Provider: Jett Mcnulty, [address], [place], [address] . tel:[phone] [facility], [address], [place], [place], [address], [place] tel:[phone] [facility] S/P right knee arthroscopy 0 Perla Frausto. [address], [place], [address] , [place]. tel:[phone] Referring Provider: Jett Mcnulty, [address], [place], [address] . tel:[phone] [facility], [address], [place], [place], [address], [place] tel:[phone] [facility] No Information 0 Perla Frausto. [address], [place], [address] , [place]. tel:[phone] Referring Provider: Jett Mcnulty, [address], [place], [address] . tel:[phone] Offic/outpt E&m [facility] Mod-hi 4 [facility], [address], [place], [address], [place] tel:[phone] [facility] Obesity, unspecifiedCu rrent peripheral tear of medial meniscus of right knee, initial encounterFrac ture of patella, sequela 0 Perla Frausto. [address], [place], [address] , [place]. tel:[phone] Referring Provider: Jett Mcnulty, [address], [place], [address] . tel:[phone] Offic/outpt E&m [facility] Mod-hi 2 [facility], [address], [place], [address], [place] tel:[phone] [facility] Obesity, unspecifiedCu rrent peripheral tear of medial meniscus of right knee, initial encounterFrac ture of patella, sequela 0 Perla Frausto. [address], [place], [place], [address] , [place]. [phone] Referring Provider: Jett Mcnulty, [address], [place], [address] . tel:[phone] Offic/outpt E&m [facility] Mod-hi 60 [facility], [address], [place], [place], [address], [place] tel:[phone] [facility] Current peripheral tear of medial meniscus of right knee, initial encounterFrac ture of patella, sequelaObesit y, unspecified Apr- 0 Perla Frausto. [address], [place], [address] , [place]. [phone] Referring Provider: Jett Mcnulty, [address], [place], [address] . 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 Of note patient also complains of cervical pain, left knee, and left thumb pain. 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 This is a W/C related injury. Patient status post right knee arthroscopic partial medial meniscectomy, 10/06/[address] Duncan. He was transferred by Dr. Duncan for continued care on his right knee since surgery. He was placed at [facility] on 02/10/2020 and given an 8% [...] unspecified Patient was previous ly placed at [facility] by Dr. Duncan. He has been [...] from Dr. Duncan.He will be placed at [facility]. He has an 8% whole person impairment for which I deferred to Dr. Duncan. He may be released to work without any limitations. He wants no further treatment at this time. Related to Work related injury He is status post ar throscopic surgery. Dr. Duncan feels he is reached [facility]. Related to Right anterior knee pain Lifestyle [...]
--- NOTE | 2025-01-03 10:48 | A.OFFPC_ITS ---
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 Was having issues with rash. Got cellulitis left leg. This has resolved. He escamilla see dermatology. He saw vascular who did not see any evidence of vascular incompetence. Conservative measures recommended MSK: Underwent spinal cord fusion at [facility], then went to [facility]. Gets home health evaluations once annually. On gabapentin, baclofen pump. The baclofen pump was replaced-a bigger one. Now nursing has to come once every 6 weeks. Follows with physiatry Dr Jett Reed in [place] every 6 months. Urology: On tamsulosin Colon cancer: cologuard + 2022 followed by colonoscopy 2022/2023 which he tells me was normal Tdap: within 10 year Shingrix: plans to get at pharmacy ROS see HPI PHYSICAL EXAM: GENERAL: Alert and oriented x 3. NAD EYES: EOMI. Anicteric. HENT: Moist mucous membranes. No scleral icterus. No cervical lymphadenopathy. LUNGS: Clear to auscultation bilaterally. CARDIOVASCULAR: Regular rate and rhythm. No murmur. No JVD. ABDOMEN: Soft, non-tender +bs EXTREMITIES: receding but still persistent cellulitic changes. Underlying peripheral vascular changes NEUROLOGIC: No focal neurological deficits. CN II-XII grossly intact PSYCHIATRIC: Cooperative. Appropriate mood and affect [facility] Family History Brother Alcoholic Asthma Father Alcoholic Asthma Mother Asthma Social History Housing: House Alcohol intake: former Patient Tobacco Use Status: Former Tobacco user Tobacco use type: Cigarette Cigarettes Per Day: 20 Years Smoked: 30 e-Cigarette/Vaping Use: Never Used Second Hand Smoke Exposure: No Substance Use Type: Marijuana service: No Current occupational status: retired Cognitive needs: No Hearing needs: No Vision needs: Yes (glasses) Questionnaire Thrive Questionnaire Date Thrive assessed: 04/17/24 I am a: Patient What is your living situation today?: I have a steady place to live Within the past 12 months, did the food you bought not last and you didn't have the money to get more?: Never true Within the past 12 months, did you worry whether your food would run out before you got money to buy more?: Never true Do you have trouble paying for medicines?: No Do you have trouble getting transportation to medical appointments?: No Do you have trouble paying your heating and electricity bill?: No Do you have trouble taking care of your child, family member or friend?: No Do you have trouble with day-to-day activities such as bathing, preparing meals, shopping, managing finances, etc.?: No Are you currently unemployed and looking for a job?: No Are you interested in more education?: No Please select the resources that you would like help with: None Currently or been in a relationship where the following occur: No concerns reported THRIVE Score: 0 AUDIT C Alcohol Use Questionnaire (AUDIT-C) 1. How often do you have a drink containing alcohol?: Never 3. How often do you have six or more drinks on one occasion?: Never Total Score: 0 MARICHUY-7 AMB Questionnaire MARICHUY-7 Date MARICHUY - 7 assessed: 03/29/24 Source: Developed by Drs. Farzad Robbins, Ewa Arana, Jayy Zaragoza and colleagues, with an educational ke from [employer]. Physical exam (Primary Care) Vital Signs: Last Vital Signs Pulse 53 01/03/25 10:49 Resp 14 01/03/25 10:49 BP 126/58 L 01/03/25 10:49 Pulse Ox 93 01/03/25 10:49 Oxygen Delivery Method Room Air 01/03/25 10:49 Tobacco/Smoking Status: Tobacco use Status Tobacco use date assessed 01/03/25 01/03/25 10:51 Patient Tobacco Use Status Former Tobacco user 01/03/25 10:51 Tobacco use type Cigarette 01/03/25 10:51 e-Cigarette/Vaping Use Never Used 01/03/25 10:51 Thrive Assessment: Date of Thrive Assessment Date Thrive assessed 04/17/24 01/03/25 10:51 Currently or been in a relationship where the following occur: No concerns reported Coding Level of Care Code Est Pt Level 4 (17641) Complex EM visit Add On G2211 Diagnoses History of spinal cord injury Z87.828 Bilateral foot-drop M21.371; M21.372 Rash R21 Benign prostatic hyperplasia, unspecified whether lower urinary tract symptoms present N40.0 Lower urinary tract symptom presence: unspecified whether lower urinary tract symptoms present Assessment & Plan Assessment & Plan (1) History of spinal cord injury: Code(s): Z87.828 - Personal history of other (healed) physical injury and trauma Category: Medical (2) Bilateral foot-drop: Code(s): M21.371 - Foot drop, right foot; M21.372 - Foot drop, left foot Category: Medical (3) Rash: Code(s): R21 - Rash and other nonspecific skin eruption Category: Medical (4) BPH (benign prostatic hyperplasia): Code(s): N40.0 - Benign prostatic hyperplasia without lower urinary tract symptoms Category: Medical Qualifiers: Lower urinary tract symptom presence: unspecified whether lower urinary tract symptoms present Qualified Code(s): N40.0 - Benign prostatic hyperplasia without lower urinary tract symptoms Plan 64 year old for follow up Interval improvement in legs, continue to elevated. Chronic pain managed on baclofen, gabapentin. Continue follow up spine BPH-stable on flomax
[2025-01-03 10:49] VITALS: BP 126/58; PULSE 53; RESP 14; O2SAT 93
--- OUTSIDE RECORDS SUMMARY | 2025-01-03 12:09 | XMS_ITS | Clinical Summary ---
Author Organization [facility] Address [address] [address] Phone Care Team Providers Care Document Control Clerk Name Role Phone Farzad Arnett MD Unavailable Vijay Bravo DO Primary Care Provider [phone] Allergies No known active allergies Medications acetaminophen [...] day. 60 g 2 08/18/19 25 Active qxytc-xtid-bz- collagen (AMANDA) 7-7-1.5 gram PwPk Take 1 [...] every 8 (eight) hours as needed. 07/02/19 025 Discontin ued(Stop Taking at Discharge ) polyethylene glycol (MIRALAX) 17 gram packet Take 17 g by mouth daily as needed. 07/02/19 025 Discontin ued(Stop Taking at Discharge ) traZODone (DESYREL) 50 MG tablet Take 1 tablet (50 mg total) by mouth nightly at bedtime as needed. 07/02/19 025 Discontin ued(Stop Taking at Discharge [...] 025 Discontin ued(Stop Taking at Discharge ) oxyCODONE 5 MG immediate release tablet Take 1 tablet (5 mg total) by mouth every 6 (six) hours as needed for pain (specific location in comments) (moderate to severe post-operative pain). Partial fill ok 15 tablet 12/15/19 025 cephalexin (KEFLEX) 500 MG capsule Take 1 capsule (500 mg total) by mouth 4 (four) times a day for 7 days. 28 capsule 12/15/19 025 Hospital, Clinic, or Other Facility Administered Medication [...] Encounters Date Type Department Care Team Description 12/27/2024 1:00 PM EDT Office Visit [facility] Pain Management [address] [place] [address] Gregg Walls MD End of battery life of intrathecal infusion pump (Primary Dx); Spasticity; Presence of intrathecal pump 12/15/2024 Telephone [facility] Management [address] [place] [address] Gregg Walls MD 12/14/2024 7:31 AM EDT Anesthesia Event [facility] Periop [address] [place] [address] Sawyer Valdez MD Kelly, Natalie M, RN 12/14/2024 7:30 AM EDT - 12/14/2024 10:00 AM EDT Surgery [facility] [address] [place] [address] Gregg Walls MD REPLACEMENT IMPLANT INFUSION DEVICE SPINE 12/14/2024 5:57 AM EDT - 12/14/2024 11:45 PM EDT Hospital Encounter [facility] [address] [place] [address] Gregg Walls MD Discharge Disposition: Home or Self Care 12/14/2024 Telephone [facility] Pain Management [address] [address] Jackie Melton 12/14/2024 Procedure Pass [facility]iop [address] [place] [address] 12/10/2024 Telephone [facility] Chronic Pain [address] [place] [address] Lena Ramachandran MD 12/08/2024 3:30 PM EDT Pre-Admission Testing [facility] [address] 2nd [place] [address] Gregg Walls MD 11/29/2024 1:57 PM EDT - 11/29/2024 11:59 PM EDT Hospital Encounter [facility] [address] [place] [address] Discharge Disposition: Home or Self Care 11/29/2024 1:00 PM EDT Office Visit [address] [address] Jett Reed DO Spasm of muscle (Primary Dx); History of spinal cord injury; Tetraplegia; Impaired mobility and activities of daily living 11/29/2024 Orders Only [address] [address] Jett Reed DO 11/24/2024 11:15 AM EDT Office Visit [facility] [address] [place] [address] Gregg Walls MD End of battery life of intrathecal infusion pump (Primary Dx); Other chronic pain; Spasticity; Preop testing 11/24/2024 Telephone [facility] Management [address] [place] [address] Josefina Garza 11/10/2024 Telephone [facility] Management [address] [place] [address] Gregg Walls MD 10/31/2024 Orders Only [facility] [address] [place] [address] Gregg Walls MD Other chronic pain (Primary Dx) 10/29/2024 Orders Only [facility] Management [address] [place] [address] Robby Arana Other chronic pain (Primary Dx) [...] high school, GED, job training, learning the Greek language, technical skills, or developing parenting skills)? [...] your housing situation today? I have edouard pavon 11/29/2024 How many times have you move [...] Description 01/10/2025 2:15 PM EDT Procedure visit [facility] [address] [address] Jett Reed DO [address] [place] [address] [email or web address] Health Maintenance Due Date Last Done Comments LIPID PANEL 1960 DEPRESSION SCREENING 1973 HEPATITIS C SCREENING 06/27/1979 HIV ONE-TIME SCREENING (18-6 5 YEARS) 06/27/1979 COLOGUARD 2006 COLONOSCOPY 2006 COLORECTAL CANCER SCREENING 2006 FIT TEST 2006 FOBT 2006 SIGMOIDOSCOPY 2006 VIRTUAL COLONOSCOPY 2006 LUNG CANCER SCREENING (LDCT Only) 06/27/2011 ZOSTER VACCINES (1 of 2) 06/27/2011 INFLUENZA VACCINE (#1) 2024 , 12/21/2021 COVID-19 VACCINE (4 - 2024-2 6 [...] this topic Medical Devices Implanted Type Area Patient Registration Specialist Device Identifier Shelf Expiration Date Model / Serial / Lot Pin-03/27/2015 Implanted: 015 (Quantity not on file) Pin Left: Ankle Pump Infusion 20ml Pain Synchromed Ii Programmable - Sn/A Implanted:Qty: 1 on 05/19/2018 by Joshua Garcia MD at [facility] Left: Abdomen [employer] 09/02/2019 8637-20 / N/A / [id number] Catheter Intrathecal [id number] Ascenda Polyester Polyurethane Silicone Pump Titanium Baclofen Therapy - Sn/A Implanted:Qty: 1 on 05/19/2018 by Joshua Garcia MD at [facility] Left: Abdomen [employer] 04/14/2020 8780 / N/A / [id number] Envelope Neuro Large Tyrx Absorbable Antibacterial - Sn/A Implanted:Qty: 1 on 05/19/2018 by Joshua Garcia MD at [facility] [employer] 06/04/2018 [id number] / N/A / [id number] Description:baci irrig rinse Envelope Neuro Large Tyrx Absorbable Antibacterial - Sn/A Implanted:Qty: 1 on 12/14/2024 by Gregg Walls MD at [facility] Left: Abdomen [employer] [place] 08/19/2025 [id number] / N/A / [id number] Pump Infusion 40ml Intrathecal Synchromed Iii Programmable - [id number] Implanted:Qty: 1 on 12/14/2024 by Gregg Walls MD at [facility] Left: Abdomen [employer] [facility] [employer] 02/01/2026 8667-40 / [id number] / N/A Procedures Procedure Name Priority Date/Time Associated Diagnosis Comments NH INSERT/ REPLACE INFUSN PUMP,PROGRAMMABLE 12/14/2024 7:00 AM EDT End of battery life of intrathecal infusion pump Special Needs SCT 60; Hr Assistant: Tito Case To Be Scheduled Date:Dec 14 Codes: Pump replacement:43426 Vendor: Medtronic Neuromonitoring: No Inpatient admission: No [...] (12/14/2024 12:00 AM EDT) 12/14/2024 12/14/2024 Narrative [facility] - 12/16/2024 6:49 PM EDT CASE: [id number] PATIENT: YANA KIMBALL Date: 1960 Sex: Male [facility] Department of Pathology [address] [place] [address] License No.: [id number] Equipment Monitor Phototypesetting: Dr. Branden Foy M.D., Ph.D. Physician: GREGG WALLS MD Procedure Date: 12/14/2024 Resident: Mars Allen M.D., Ph.D. Pathologist: Kei Elder M.D., Ph.D. PATHOLOGIC DIAGNOSIS: A. PAIN PUMP (ID ONLY): formal wear rental clerk for gross examination only. CLINICAL DATA: History: End of battery life of intrathecal infusion pump. Operation: Replacement implant fusion device spine. TISSUE SUBMITTED: A/1. Pain pump (ID only) GROSS DESCRIPTION: The specimen is received in 1 part, labeled with the patient's name and medical record number. Part A received fresh labeled Pain pump (ID only) consists of a teardrop-shaped metallic-silver, metal medical receptionist medical assistant (8.6 x 7.3 x 2.0 cm), bearing the inscriptions Medtronic SYNCHROMED(r) II Programmable Pump , 8637-20 , [id number] and [employer] [place] . No soft tissue is [...] Ph.D., Electronically signed on December at 06:49:09PM Gregg Walls MD PATHOLOGY ORDERABLES Final Resul t Performing Organization Address City/[facility]/ZIP Co de Phone Number [facility] [address] [place] [address] * PT-INR (11/29/2024 1:57 PM EDT) Pathologist [facility] PT 10.6 9.4 - 12.5 sec [facility] INR 0.9 0.8 - 1.1 [facility] Blood 11/29/2024 1:57 PM EDT 11/29/2024 2:01 PM EDT Gregg Walls MD LAB BLOOD ORDERABLES Final Resul t Performing Organization Address City/[facility]/ZIP Co de Phone Number [facility] [address] [place] [address] * (ABNORMAL) CBC and differential (11/29/2024 1:57 PM EDT) Pathologist [facility] WBC 4.50 4.00 - 11.00 K/uL [facility] RBC 4.41(L) 4.50 - 5.90 M/uL [facility] HGB 13.4(L) 13.5 - 17.5 g/dL [facility] HCT 40.5(L) 41.0 - 53.0 % [facility] PLT 215 150 - 450 K/uL [facility] MCV 91.8 80.0 - 100.0 fL [facility] MCH 30.4 27.0 - 31.0 pg [facility] MCHC 33.1 32.0 - 36.0 g/dL [facility] RDW 12.7 11.5 - 14.5 % [facility] MPV 9.7 8.4 - 12.0 fL [facility] NRBC 0.00 0.00 /100 WBCs [facility] ABSOLUTE NRBC 0.00 0.00 K/uL [facility] DIFF METHOD Auto [facility] NEUTS 58.4 48.0 - 76.0 % [facility] LYMPHS 27.6 18.0 - 41.0 % [facility] MONOS 9.1 4.0 - 11.0 % [facility] EOS 3.6 0.0 - 5.0 % [facility] BASOS 0.9 0.0 - 1.5 % [facility] % IMMATURE GRANS 0.4 0.0 - 0.9 % [facility] ABSOLUTE NEUTS 2.63 1.92 - 7.60 K/uL [facility] ABSOLUTE LYMPHS 1.24 0.72 - 4.10 K/uL [facility] ABSOLUTE MONOS 0.41 0.16 - 1.10 K/uL [facility] ABSOLUTE EOS 0.16 0.00 - 0.50 K/uL [facility] ABSOLUTE BASOS 0.04 0.00 - 0.15 K/uL [facility] ABS IMMATURE GRANS 0.02 0.00 - 0.09 K/uL [facility] Blood 11/29/2024 1:57 PM EDT 11/29/2024 2:01 PM EDT us Gregg Walls MD LAB BLOOD ORDERABLES Final Resul t [facility] [address] [place] [address] * (ABNORMAL) Basic metabolic panel (11/29/2024 1:57 PM EDT) SODIUM 134 134 - 140 mmol/L [facility] CHLORIDE 98(L) 101 - 111 mmol/L [facility] POTASSIUM 4.5 3.6 - 5.0 mmol/L [facility] CO2 27 21 - 31 mmol/L [facility] BUN 6(L) 7 - 18 mg/dL [facility] CREATININE 0.72 0.62 - 1.20 mg/dL [facility] GLUCOSE 86 70 - 105 mg/dL [facility] CALCIUM 9.4 8.4 - 10.2 mg/dL [facility] EGFR 103 >59 mL/min/1.7 3m2 [facility] Comment:Estimated glomerular filtration rate calculated using the CKD-EPI refit equation. ANION GAP 9 3 - 17 mmol/L [facility] Blood 11/29/2024 1:57 PM EDT 11/29/2024 2:01 PM EDT Gregg Walls MD LAB BLOOD ORDERABLES Final Resul t [facility] [address] [place] [address] * MRSA Nasal Screen (11/24/2024 3:58 PM EDT) Special Requests None 11/24/2024 3:58 PM EDT [address] [place] [address] LAB MRSA Nasal Culture NO METHICILLIN RESISTANT STAPHYLOCOCCUS AUREUS ISOLATED 11/26/2024 9:06 AM EDT [facility] Other (Nasal) 11/24/2024 3:5 8 PM EDT 11/25/2024 2:08 AM EDT Gregg Walls MD MICROBIOLOGY - GENERAL ORDERABLE S Final Result [facility] [address] [place] [address] [place] [address] [place] [address] from Last 3 Months Insurance [facility] MEDICARE REPLACEMENT MEDICARE PART A & B [facility] [place] [address] MEDICARE PART A & B [facility] MEDICARE REPLACEMENT MEDICARE PART A & B [facility] [place] [address] MEDICARE PART A & B [facility] [place] [address] MEDICARE PART A & B [facility] MEDICARE REPLACEMENT MEDICARE PART A & B [employer] Advance Directives For more information, please contact: [phone] (9AM - 5PM [facility], Friday-Friday) Documents on File Type Date Recorded Patient Hr Assistant Expl anation Healthcare Proxy 02/13/2018 12:47 PM [...] Agents on File Name Relationship Healthcare Agent Relationshi p Communication Nel Montoya Other .Primary Health Care Agent (Proxy form on file) Care Teams Document Control Clerk Relationship Specialty Start Date End Date Vijay Bravo DO [address] [place] [address] Dr KIMBLE [address]_[place] [address] PCP - General Family Medicine 08/05/22 Farzad Arnett MD [address] [place] [address] Dr KIMBLE [address]_Ne[place]rological [place] [address] Neurosurgery 02/19/18 Additional Source Comments The information contained in this document represents components of the legal health record. It is not the complete legal health record.[facility]
--- OUTSIDE RECORDS SUMMARY | 2025-01-03 12:09 | XMS_ITS | Encounter Summary ---
Author Organization [facility] Address [address] [place] [address] Phone Care Team Providers Care Dog Pound Attendant Name Role Phone Unknown, Unknown Primary Care Provider Farzad Urias MD Unavailable [phone] Vijay Bravo DO Primary Care Provider [phone] Reason for Visit * Reason Comments Medication Refill Encounter Details Date Type Department Care Team (Late st Contact Info) Description 02/11/2020 Refill [facility] [address] [address] Jett Reed DO [address] [place] [address] [email or web address] Medication Refill Social History Tobacco Use [...] Description 01/10/2025 2:15 PM EDT Procedure visit [facility] [address] [address] Jett Reed DO [address] [place] [address] [email or web address] documented as of this encounter Visit Diagnoses Not on filedocumented in this encounter Care Teams Dog Pound Attendant Relationship Specialty Start Date End Date Unknown, Unknown, MD PCP - General 02/11/18 08/04/22 Vijay Bravo DO [address] [place] [address] Dr MARAVILLA_Neurological [place] [address] PCP - General Family Medicine 08/05/22 Farzad Arnett MD [address] [place] [address] Dr MARAVILLA_Neurological [place] [address] Neurosurgery 02/19/18 documented as of this encounter Additional Source Comments The information contained in this document represents components of the legal health record. It is not the complete legal health record.[facility]
--- OUTSIDE RECORDS SUMMARY | 2025-01-03 12:10 | XMS_ITS | Encounter Summary ---
Author Organization [facility] Address [address] [place] [address] Phone Care Team Providers Care Desk Manager Name Role Phone Unknown, Unknown Primary Care Provider Farzad Urias MD Unavailable [phone] Vijay Bravo DO Primary Care Provider [phone] Reason for Visit * Reason Comments Medication Refill Encounter Details Date Type Department Care Team (Late st Contact Info) Description 04/30/2020 Refill [facility] [address] [address] Jett Reed DO [address] [place] [address] [email or web address] Medication Refill Social History Tobacco Use [...] Description 01/10/2025 2:15 PM EDT Procedure visit [facility] [address] [address] Jett Reed DO [address] [place] [address] [email or web address] documented as of this encounter Visit Diagnoses Not on filedocumented in this encounter Care Teams Desk Manager Relationship Specialty Start Date End Date Unknown, Unknown, MD PCP - General 02/11/18 08/04/22 Vijay Bravo DO [address] [place] [address] Dr MARAVILLA_Ne[place]rological [place] [address] PCP - General Family Medicine 08/05/22 Farzad Arnett MD [address] [place] [address] Dr MARAVILLA_Ne[place]rological [place] [address] Neurosurgery 02/19/18 documented as of this encounter Additional Source Comments The information contained in this document represents components of the legal health record. It is not the complete legal health record.[facility]
--- OUTSIDE RECORDS SUMMARY | 2025-01-03 12:10 | XMS_ITS | Encounter Summary ---
Author Organization [facility] Address [address] [place] [address] Phone Care Team Providers Care Sponge Press Operator Name Role Phone Unknown, Unknown Primary Care Provider Farzad Urias MD Unavailable [phone] Vijay Bravo DO Primary Care Provider [phone] Reason for Visit * Reason Comments Medication Refill Encounter Details Date Type Department Care Team (Late st Contact Info) Description 08/05/2020 Refill [facility] [address] [address] Jett Reed DO [address] [place] [address] [email or web address] Medication Refill Social History Tobacco Use Types [...] Description 01/10/2025 2:15 PM EDT Procedure visit [facility] [address] [address] Jett Reed DO [address] [place] [address] [email or web address] documented as of this encounter Visit Diagnoses Not on filedocumented in this encounter Care Teams Sponge Press Operator Relationship Specialty Start Date End Date Unknown, Unknown, MD PCP - General 02/11/18 08/04/22 Vijay Bravo DO [address] [place] [address] Dr MARAVILLA_Ne[place]rological [place] [address] PCP - General Family Medicine 08/05/22 Farzad Arnett MD [address] [place] [address] Dr MARAVILLA_Ne[place]rological [place] [address] Neurosurgery 02/19/18 documented as of this encounter Additional Source Comments The information contained in this document represents components of the legal health record. It is not the complete legal health record.[facility]
--- OUTSIDE RECORDS SUMMARY | 2025-01-03 12:10 | XMS_ITS | Encounter Summary ---
Author Organization [facility] Address [address] [place] [address] Phone Care Team Providers Care Mobile Equipment Mechanic Name Role Phone Unknown, Unknown Primary Care Provider Farzad Urias MD Unavailable [phone] Vijay Bravo DO Primary Care Provider [phone] Reason for Visit * Reason Comments Medication Refill Encounter Details Date Type Department Care Team (Late st Contact Info) Description 07/05/2020 Refill [facility] [address] [address] Jett Reed DO [address] [place] [address] [email or web address] [...] Description 01/10/2025 2:15 PM EDT Procedure visit [facility] [address] [address] Jett Reed DO [address] [place] [address] [email or web address] documented as of this encounter Visit Diagnoses Not on filedocumented in this encounter Care Teams Mobile Equipment Mechanic Relationship Specialty Start Date End Date Unknown, Unknown, MD PCP - General 02/11/18 08/04/22 Vijay Bravo DO [address] [place] [address] Dr MARAVILLA_[place]rological [place] [address] PCP - General Family Medicine 08/05/22 Farzad Arnett MD [address] [place] [address] Dr MARAVILLA_Neurological [place] [address] Neurosurgery 02/19/18 documented as of this encounter Additional Source Comments The information contained in this document represents components of the legal health record. It is not the complete legal health record.[facility]
--- OUTSIDE RECORDS SUMMARY | 2025-01-03 12:10 | XMS_ITS | Encounter Summary ---
Author Organization [facility] Address [address] [facility] [address] [place] [address] Phone Care Team Providers Care Guest Service Aide Name Role Phone Unknown, Unknown Primary Care Provider Farzad Urias MD Unavailable [phone] Vijay Bravo DO Primary Care Provider [phone] Encounter Details Date Type Department Care Team (Late st Contact Info) Description 05/19/2018 Procedure Pass [facility] Periop [address] [place] [address] Social History Tobacco Use Types Packs/Day Years [...] Description 01/10/2025 2:15 PM EDT Procedure visit [facility] [address] [address] Jett Reed DO [address] [place], [place] [id number] [email or web address] documented as of this encounter Visit Diagnoses Not on filedocumented in this encounter Care Teams Guest Service Aide Relationship Specialty Start Date End Date Unknown, Unknown, PCP - General 02/11/18 08/04/22 Vijay Bravo DO [address] [place] [address] Dr MARAVILLA_Neurological [place] [address] PCP - General Family Medicine 08/05/22 Farzad Arnett MD [address] [place] [address] Dr MARAVILLA_Neurological [place] [address] Neurosurgery 02/19/18 documented as of this encounter Additional Source Comments The information contained in this document represents components of the legal health record. It is not the complete legal health record.[facility]
--- OUTSIDE RECORDS SUMMARY | 2025-01-03 12:10 | XMS_ITS | Encounter Summary ---
Author Organization [facility] Address [address] [place] [address] Phone Care Team Providers Care Peoplesoft Fscm Developer Name Role Phone Unknown, Unknown Primary Care Provider Farzad Urias MD Unavailable [phone] Vijay Bravo DO Primary Care Provider [phone] Reason for Visit * Reason Comments Medication Refill Encounter Details Date Type Department Care Team (Late st Contact Info) Description 05/08/2021 Refill [facility] [address] [address] Jett Reed DO [address] [place] [address] [email or web address] Medication Refill Social History Tobacco Use [...] Description 01/10/2025 2:15 PM EDT Procedure visit [facility] [address] [address] Jett Reed DO [address] [place] [address] [email or web address] documented as of this encounter Visit Diagnoses Not on filedocumented in this encounter Care Teams Peoplesoft Fscm Developer Relationship Specialty Start Date End Date Unknown, Unknown, MD PCP - General 02/11/18 08/04/22 Vijay Bravo DO [address] [place] [address] Dr MARAVILLA_Neurological [place] [address] PCP - General Family Medicine 08/05/22 Farzad Arnett MD [address] [place] [address] Dr MARAVILLA_Neurological [place] [address] Neurosurgery 02/19/18 documented as of this encounter Additional Source Comments The information contained in this document represents components of the legal health record. It is not the complete legal health record.[facility]
--- OUTSIDE RECORDS SUMMARY | 2025-01-03 12:10 | XMS_ITS | Encounter Summary ---
Author Organization [facility] Address [address] [place] [address] Phone Care Team Providers Care Farm General Manager Name Role Phone Unknown, Unknown Primary Care Provider Farzad Urias MD Unavailable [phone] Vijay Bravo DO Primary Care Provider [phone] Reason for Visit * Reason Comments Medication Refill Encounter Details Date Type Department Care Team (Late st Contact Info) Description 01/24/2022 Refill [facility] [address] [address] Jett Reed DO [address] [place] [address] [email or web address] Medication Refill Social History Tobacco Use [...] Description 01/10/2025 2:15 PM EDT Procedure visit [facility] [address] [address] Jett Reed DO [address] [place] [address] [email or web address] documented as of this encounter Visit Diagnoses Not on filedocumented in this encounter Care Teams Farm General Manager Relationship Specialty Start Date End Date Unknown, Unknown, MD PCP - General 02/11/18 08/04/22 Vijay Bravo DO [address] [place] [address] Dr MARAVILLA_[place]rological [place] [address] PCP - General Family Medicine 08/05/22 Farzad Arnett MD [address] [place] [address] Dr MARAVILLA_Neurological [place] [address] Neurosurgery 02/19/18 documented as of this encounter Additional Source Comments The information contained in this document represents components of the legal health record. It is not the complete legal health record.[facility]
--- OUTSIDE RECORDS SUMMARY | 2025-01-03 12:10 | XMS_ITS | Encounter Summary ---
Author Organization [facility] Address [address] [facility] [address] [place] [address] Phone Care Team Providers Care Fountain Pen Nibs Inspector Name Role Phone Farzad Arnett MD Unavailable [phone] Vijay Bravo DO Primary Care Provider [phone] Reason for Visit * Reason Comments Medication Refill Encounter Details Date Type Department Care Team (Late st Contact Info) Description 02/09/2023 Refill [facility] [address] [address] Jett Reed DO [address] [place] [address] [email or web address] Medication Refill Social History Tobacco Use Types [...] Description 01/10/2025 2:15 PM EDT Procedure visit [facility] [place] [address] [place] [address] Jett Reed DO [address] [place] [address] CAREN@[email or web address] documented as of this encounter Visit Diagnoses Not on filedocumented in this encounter Care Teams Fountain Pen Nibs Inspector Relationship Specialty Start Date End Date Vijay Bravo DO [address] [place] [address] Dr MARAVILLA_[place]rological [place] [address] PCP - General Family Medicine 08/05/22 Farzad Arnett MD [address] [place] [address] Dr MARAVILLA_[place]rological [place] [address] Neurosurgery 02/19/18 documented as of this encounter Additional Source Comments The information contained in this document represents components of the legal health record. It is not the complete legal health record.[facility]
--- OUTSIDE RECORDS SUMMARY | 2025-01-03 12:10 | XMS_ITS | Encounter Summary ---
Author Organization [facility] Address [address] [facility] [address] [place] [address] Phone Care Team Providers Care Transistor Tester Name Role Phone Unknown, Unknown Primary Care Provider Farzad Urias MD Unavailable [phone] Vijay Bravo DO Primary Care Provider [phone] Encounter Details Date Type Department Care Team (Late st Contact Info) Description 04/13/2018 Procedure Pass [facility], [place] [address] [facility], 2nd [place] [address] Social History Tobacco Use Types Packs/Day Years [...] Description 01/10/2025 2:15 PM EDT Procedure visit [facility] [address] [address] Jett Reed DO 300 [place] [address] [email or web address] documented as of this encounter Visit Diagnoses Not on filedocumented in this encounter Care Teams Transistor Tester Relationship Specialty Start Date End Date Unknown, Unknown, PCP - General 02/11/18 08/04/22 Vijay Bravo DO [address] [place] [address] Dr MARAVILLA_Neurological [place] [address] PCP - General Family Medicine 08/05/22 Farzad Arnett MD [address] [place] [address] Dr KIMBLE 503_[place]rological [place] [address] Neurosurgery 02/19/18 documented as of this encounter Additional Source Comments The information contained in this document represents components of the legal health record. It is not the complete legal health record.[facility]
--- OUTSIDE RECORDS SUMMARY | 2025-01-03 12:10 | XMS_ITS | Encounter Summary ---
Author Organization [facility] Address [address] [place] [address] Phone Care Team Providers Care Systems Engineer Name Role Phone Unknown, Unknown Primary Care Provider Farzad Urias MD Unavailable [phone] Vijay Bravo DO Primary Care Provider [phone] Reason for Visit * Reason Comments Medication Refill Encounter Details Date Type Department Care Team (Late st Contact Info) Description 09/02/2020 Refill [facility] [address] [address] Jett Reed DO 300 [place] [address] [email or web address] Medication Refill Social History Tobacco [...] Description 01/10/2025 2:15 PM EDT Procedure visit [facility] [address] [address] Jett Reed DO [address] [place] [address] [email or web address] documented as of this encounter Visit Diagnoses Not on filedocumented in this encounter Care Teams Systems Engineer Relationship Specialty Start Date End Date Unknown, Unknown, MD PCP - General 02/11/18 08/04/22 Vijay Bravo DO [address] [place] [address] Dr MARAVILLA_Neurological [place] [address] PCP - General Family Medicine 08/05/22 Farzad Arnett MD [address] [place] [address] Dr MARAVILLA_Neurological [place] [address] Neurosurgery 02/19/18 documented as of this encounter Additional Source Comments The information contained in this document represents components of the legal health record. It is not the complete legal health record.[facility]
--- OUTSIDE RECORDS SUMMARY | 2025-01-03 12:10 | XMS_ITS | Encounter Summary ---
Author Organization [facility] Address [address] [place] [address] Phone Care Team Providers Care Leather Scrubber Name Role Phone Unknown, Unknown Primary Care Provider Farzad Urias MD Unavailable [phone] Vijay Bravo DO Primary Care Provider [phone] Reason for Visit * Reason Comments Medication Refill Encounter Details Date Type Department Care Team (Late st Contact Info) Description 07/09/2020 Refill [facility] [address] [address] Jett Reed DO 300 [place] [address] CAREN@[email or web address] Medication Refill Social History Tobacco [...] Description 01/10/2025 2:15 PM EDT Procedure visit [facility] [address] [address] Jett Reed DO [address] [place] [address] [email or web address] documented as of this encounter Visit Diagnoses Not on filedocumented in this encounter Care Teams Leather Scrubber Relationship Specialty Start Date End Date Unknown, Unknown, MD PCP - General 02/11/18 08/04/22 Vijay Bravo DO [address] [place] [address] Dr MARAVILLA_[place]urological [place] [address] PCP - General Family Medicine 08/05/22 Farzad Arnett MD [address] [place] [address] Dr MARAVILLA_Neurological [place] [address] Neurosurgery 02/19/18 documented as of this encounter Additional Source Comments The information contained in this document represents components of the legal health record. It is not the complete legal health record.[facility]
--- OUTSIDE RECORDS SUMMARY | 2025-01-03 12:10 | XMS_ITS | Encounter Summary ---
Author Organization [facility] Address [address] [place] [address] Phone Care Team Providers Care Filament Shaper Name Role Phone Unknown, Unknown Primary Care Provider Farzad Urias MD Unavailable [phone] Vijay Bravo DO Primary Care Provider [phone] Reason for Visit * Reason Comments Medication Refill Encounter Details Date Type Department Care Team (Late st Contact Info) Description 05/01/2021 Refill [facility] [address] [address] Jett Reed DO 300 [place] [address] CAREN@[email or web address] Medication Refill Social History Tobacco Use Types [...] Description 01/10/2025 2:15 PM EDT Procedure visit [facility] [address] [address] Jett Reed DO [address] [place] [address] [email or web address] documented as of this encounter Visit Diagnoses Not on filedocumented in this encounter Care Teams Filament Shaper Relationship Specialty Start Date End Date Unknown, Unknown, MD PCP - General 02/11/18 08/04/22 Vijay Bravo DO [address] [place] [address] Dr MARAVILLA_Neurological [place] [address] PCP - General Family Medicine 08/05/22 Farzad Arnett MD [address] [place] [address] Dr MARAVILLA_Neurological [place] [address] Neurosurgery 02/19/18 documented as of this encounter Additional Source Comments The information contained in this document represents components of the legal health record. It is not the complete legal health record.[facility]
--- OUTSIDE RECORDS SUMMARY | 2025-01-03 12:10 | XMS_ITS | Encounter Summary ---
Author Organization [facility] Address [address] [place] [address] Phone Care Team Providers Care Director Asset Name Role Phone Unknown, Unknown Primary Care Provider Farzad Urias MD Unavailable [phone] Vijay Bravo DO Primary Care Provider [phone] Reason for Visit * Reason Comments Medication Refill Encounter Details Date Type Department Care Team (Late st Contact Info) Description 05/12/2020 Refill [facility] [address] [address] Jett Reed DO 300 [place] [address] CAREN@[email or web address] Medication Refill Social [...] Description 01/10/2025 2:15 PM EDT Procedure visit [facility] [address] [address] Jett Reed DO [address] [place] [address] [email or web address] documented as of this encounter Visit Diagnoses Not on filedocumented in this encounter Care Teams Director Asset Relationship Specialty Start Date End Date Unknown, Unknown, MD PCP - General 02/11/18 08/04/22 Vijay Bravo DO [address] [place] [address] Dr MARAVILLA_[place]rological [place] [address] PCP - General Family Medicine 08/05/22 Farzad Arnett MD [address] [place] [address] Dr MARAVILLA_Neurological [place] [address] Neurosurgery 02/19/18 documented as of this encounter Additional Source Comments The information contained in this document represents components of the legal health record. It is not the complete legal health record.[facility]
--- OUTSIDE RECORDS SUMMARY | 2025-01-03 12:10 | XMS_ITS | Encounter Summary ---
Author Organization [facility] Address [address] [place] [address] Phone Care Team Providers Care Fiberglass Finisher Name Role Phone Unknown, Unknown Primary Care Provider Farzad Urias MD Unavailable [phone] Vijay Bravo DO Primary Care Provider [phone] Reason for Visit * Reason Comments Medication Refill Encounter Details Date Type Department Care Team (Late st Contact Info) Description 05/07/2020 Refill [facility] [address] [address] Jett Reed DO 300 [place] [address] [email or web address] Medication Refill [...] Description 01/10/2025 2:15 PM EDT Procedure visit [facility] [address] [address] Jett Reed DO [address] [place] [address] [email or web address] documented as of this encounter Visit Diagnoses Not on filedocumented in this encounter Care Teams Fiberglass Finisher Relationship Specialty Start Date End Date Unknown, Unknown, MD PCP - General 02/11/18 08/04/22 Vijay Bravo DO [address] [place] [address] Dr MARAVILLA_[place]rological [place] [address] PCP - General Family Medicine 08/05/22 Farzad Arnett MD [address] [place] [address] Dr MARAVILLA_[place]urological [place] [address] Neurosurgery 02/19/18 documented as of this encounter Additional Source Comments The information contained in this document represents components of the legal health record. It is not the complete legal health record.[facility]
--- OUTSIDE RECORDS SUMMARY | 2025-01-03 12:10 | XMS_ITS | Encounter Summary ---
Author Organization [facility] Address [address] [place] [address] Phone Care Team Providers Care Round Cutter Operator Name Role Phone Unknown, Unknown Primary Care Provider Farzad Urias MD Unavailable [phone] Vijay Bravo DO Primary Care Provider [phone] Reason for Visit * Reason Comments Medication Refill Encounter Details Date Type Department Care Team (Late st Contact Info) Description 03/28/2020 Refill [facility] [address] [address] Jett Reed DO 300 [place] [address] [email or web address] Medication Refill Social History Tobacco Use [...] Description 01/10/2025 2:15 PM EDT Procedure visit [facility] [address] [address] Jett Reed DO [address] [place] [address] [email or web address] documented as of this encounter Visit Diagnoses Not on filedocumented in this encounter Care Teams Round Cutter Operator Relationship Specialty Start Date End Date Unknown, Unknown, MD PCP - General 02/11/18 08/04/22 Vijay Bravo DO [address] [place] [address] Dr MARAVILLA_Neurological [place] [address] PCP - General Family Medicine 08/05/22 Farzad Arnett MD [address] [place] [address] Dr MARAVILAL_Neurological [place] [address] Neurosurgery 02/19/18 documented as of this encounter Additional Source Comments The information contained in this document represents components of the legal health record. It is not the complete legal health record.[facility]
--- OUTSIDE RECORDS SUMMARY | 2025-01-03 12:10 | XMS_ITS | Encounter Summary ---
Author Organization [facility] Address [address] [place] [address] Phone Care Team Providers Care Hairspring Truing Inspector Name Role Phone Unknown, Unknown Primary Care Provider Farzad Urias MD Unavailable [phone] Vijay Bravo DO Primary Care Provider [phone] Encounter Details Date Type Department Care Team (Late st Contact Info) Description 05/19/2018 Procedure Pass [facility] [address] [place] [address] Social History Tobacco Use Types Packs/Day Years [...] Description 01/10/2025 2:15 PM EDT Procedure visit [facility] [address] [phone] Jett Reed DO 300 [place] [address] [email or web address] documented as of this encounter Visit Diagnoses Not on filedocumented in this encounter Care Teams Hairspring Truing Inspector Relationship Specialty Start Date End Date Unknown, Unknown, MD PCP - General 02/11/18 08/04/22 Vijay Bravo DO [address] [place] [address] Dr MARAVILLA_Neurological [place] [address] PCP - General Family Medicine 08/05/22 Farzad Arnett MD [address] [place] [address] Dr MARAVILLA_Neurological [place] [address] Neurosurgery 02/19/18 documented as of this encounter Additional Source Comments The information contained in this document represents components of the legal health record. It is not the complete legal health record.[facility]
--- OUTSIDE RECORDS SUMMARY | 2025-01-03 12:10 | XMS_ITS | Encounter Summary ---
Author Organization [facility] Address [address] [facility] [address] [place] [address] Phone Care Team Providers Care Editor Trade Journal Name Role Phone Farzad Arnett MD Unavailable [phone] Vijay Bravo DO Primary Care Provider [phone] Reason for Visit * Reason Comments Medication Refill Encounter Details Date Type Department Care Team (Late st Contact Info) Description 01/29/2023 Refill [facility] [address] [address] Jett Reed DO [address] [place] [address] [email or web address] Medication Refill Social History Tobacco Use [...] Description 01/10/2025 2:15 PM EDT Procedure visit [facility] [address] [place] [address] Jett Reed DO [address] [place] [address] CAREN@[email or web address] documented as of this encounter Visit Diagnoses Not on filedocumented in this encounter Care Teams Editor Trade Journal Relationship Specialty Start Date End Date Vijay Bravo DO [address] [place] [address] Dr MARAVILLA_Neurological [place] [address] PCP - General Family Medicine 08/05/22 Farzad Arnett MD [address] [place] [address] Dr MARAVILLA_Neurological [place] [address] Neurosurgery 02/19/18 documented as of this encounter Additional Source Comments The information contained in this document represents components of the legal health record. It is not the complete legal health record.[facility]
--- OUTSIDE RECORDS SUMMARY | 2025-01-03 12:10 | XMS_ITS | Encounter Summary ---
Author Organization [facility] Address [address] [place] [address] Phone Care Team Providers Care Ballroom Dance Instructor Name Role Phone Unknown, Unknown Primary Care Provider Farzad Urias MD Unavailable [phone] Vijay Bravo DO Primary Care Provider [phone] Reason for Visit * Reason Comments Medication Refill Encounter Details Date Type Department Care Team (Late st Contact Info) Description 02/11/2021 Refill [facility] [address] [address] Jett Reed DO 300 [place] [address] CAREN@[email or web address] Medication Refill Social History Tobacco Use Types [...] Description 01/10/2025 2:15 PM EDT Procedure visit [facility] [address] [address] Jett Reed DO [address] [place] [address] [email or web address] documented as of this encounter Visit Diagnoses Not on filedocumented in this encounter Care Teams Ballroom Dance Instructor Relationship Specialty Start Date End Date Unknown, Unknown, MD PCP - General 02/11/18 08/04/22 Vijay Bravo DO [address] [place] [address] Dr MARAVILLA_[place] [address] PCP - General Family Medicine 08/05/22 Farzad Arnett MD [address] [place] [address] Dr MARAVILLA_[place]rological [place] [address] Neurosurgery 02/19/18 documented as of this encounter Additional Source Comments The information contained in this document represents components of the legal health record. It is not the complete legal health record.[facility]
--- OUTSIDE RECORDS SUMMARY | 2025-01-03 12:11 | XMS_ITS | Encounter Summary ---
Author Organization [facility] Address [address] [place] [address] Phone Care Team Providers Care Edge Inker Uppers Name Role Phone Unknown, Unknown Primary Care Provider Farzad Urias MD Unavailable [phone] Vijay Bravo DO Primary Care Provider [phone] Reason for Visit * Reason Comments Medication Refill Encounter Details Date Type Department Care Team (Late st Contact Info) Description 02/04/2020 Refill [facility] [address] [address] Jett Reed DO 300 [place] [address] CAREN@[email or web address] Medication Refill Social History Tobacco Use Types [...] Description 01/10/2025 2:15 PM EDT Procedure visit [facility] [address] [address] Jett Reed DO [address] [place] [address] HUGHASAMARCI@[email or web address] documented as of this encounter Visit Diagnoses Not on filedocumented in this encounter Care Teams Edge Inker Uppers Relationship Specialty Start Date End Date Unknown, Unknown, MD PCP - General 02/11/18 08/04/22 Vijay Bravo DO [address] [place] [address] Dr MARAVILLA_[place]rological [place] [address] PCP - General Family Medicine 08/05/22 Farzad Arnett MD [address] [place] [address] Dr MARAVILLA_[place]rological [place] [address] Neurosurgery 02/19/18 documented as of this encounter Additional Source Comments The information contained in this document represents components of the legal health record. It is not the complete legal health record.[facility]
--- OUTSIDE RECORDS SUMMARY | 2025-01-03 12:11 | XMS_ITS | Encounter Summary ---
Author Organization [facility] Address [address] [place] [address] Phone Care Team Providers Care Practice Billing Associate Name Role Phone Unknown, Unknown Primary Care Provider Farzad Urias MD Unavailable [phone] Vijay Bravo DO Primary Care Provider [phone] Reason for Visit * Reason Comments Medication Refill Encounter Details Date Type Department Care Team (Late st Contact Info) Description 04/28/2022 Refill [facility] [address] [address] Jett Reed DO 300 [place] [address] CAREN@[email or web address] Medication Refill Social History Tobacco Use Types [...] Description 01/10/2025 2:15 PM EDT Procedure visit [facility] [address] [address] Jett Reed DO [address] [place] [address] TIAMARCI@[email or web address] documented as of this encounter Visit Diagnoses Not on filedocumented in this encounter Care Teams Practice Billing Associate Relationship Specialty Start Date End Date Unknown, Unknown, MD PCP - General 02/11/18 08/04/22 Vijay Bravo DO [address] [place] [address] Dr MARAVILLA_[place]rological [place] [address] PCP - General Family Medicine 08/05/22 Farzad Arnett MD [address] [place] [address] Dr MARAVILLA_Neurological [place] [address] Neurosurgery 02/19/18 documented as of this encounter Additional Source Comments The information contained in this document represents components of the legal health record. It is not the complete legal health record.[facility]
--- OUTSIDE RECORDS SUMMARY | 2025-01-03 12:11 | XMS_ITS | Encounter Summary ---
Author Organization [facility] Address [address] [place] [address] Phone Care Team Providers Care Dial Buffer Name Role Phone Unknown, Unknown Primary Care Provider Farzad Urias MD Unavailable [phone] Vijay Bravo DO Primary Care Provider [phone] Reason for Visit * Reason Comments Medication Refill Encounter Details Date Type Department Care Team (Late st Contact Info) Description 07/30/2021 Refill [facility] [address] [address] Jett Reed DO [address] [place] [address] [email or web address] Medication Refill Social History Tobacco [...] Description 01/10/2025 2:15 PM EDT Procedure visit [facility] [address] [address] Jett Reed DO [address] [place] [address] [email or web address] documented as of this encounter Visit Diagnoses Not on filedocumented in this encounter Care Teams Dial Buffer Relationship Specialty Start Date End Date Unknown, Unknown, MD PCP - General 02/11/18 08/04/22 Vijay Bravo DO [address] [place] [address] Dr [facility] [place] [address] PCP - General Family Medicine 08/05/22 Farzad Arnett MD [address] [place] [address] Dr [facility]AV[facility]Neurological [place] [address] Neurosurgery 02/19/18 documented as of this encounter Additional Source Comments The information contained in this document represents components of the legal health record. It is not the complete legal health record.[facility]
--- OUTSIDE RECORDS SUMMARY | 2025-01-03 12:11 | XMS_ITS | Encounter Summary ---
Author Organization [facility] Address [address] [facility] [address] [place] [address] Phone Care Team Providers Care Business Information Consultant Name Role Phone Farzad Arnett MD Unavailable Vijay Bravo DO Primary Care Provider [phone] Reason for Visit * Reason Comments Medication Refill Encounter Details Date Type Department Care Team (Late st Contact Info) Description 07/15/2024 Refill [facility] [address] [address] Jett Reed DO [address] [place] [address] CAREN@[email or web address] Medication Refill Social History Tobacco [...] Description 01/10/2025 2:15 PM EDT Procedure visit [facility] [address] [place] [address] Jett Reed DO [address] [place] [address] CAREN@[email or web address] documented as of this encounter Visit Diagnoses Not on filedocumented in this encounter Care Teams Business Information Consultant Relationship Specialty Start Date End Date Vijay Bravo DO [address] [place] [address] Dr [facility]AVILLA[facility]Neurological [place] [address] PCP - General Family Medicine 08/05/22 Farzad Arnett MD [address] [place] [address] Dr [facility]AVILLA[facility]Neurological [facility] [place] [address] Neurosurgery 02/19/18 documented as of this encounter Additional Source Comments The information contained in this document represents components of the legal health record. It is not the complete legal health record.[facility]
--- OUTSIDE RECORDS SUMMARY | 2025-01-03 12:11 | XMS_ITS | Encounter Summary ---
Author Organization [facility] Address [address] [place] [address] Phone Care Team Providers Care Accordion Maker Name Role Phone Farzad Arnett MD Unavailable [phone] Vijay Bravo DO Primary Care Provider [phone] Encounter Details Date Type Department Care Team (Late st Contact Info) Description 11/29/2024 Orders Only [facility] [address] [address] Jett Reed DO [address] [place] [address] [id number] CAREN@[email or web address] Social History Tobacco Use Types Packs/Day Years [...] high school, GED, job training, learning the Guinean language, technical skills, or developing parenting skills)? [...] 2:15 PM EDT Procedure visit [facility] [address] [address] Jett Reed DO [address] [place] [address] CAREN@[email or web address] documented as of this encounter Visit Diagnoses Not on filedocumented in this encounter Care Teams Accordion Maker Relationship Specialty Start Date End Date Vijay Bravo DO [address] [place] [address] Dr MARAVILLA_Neurological [place] [address] PCP - General Family Medicine 08/05/22 Farzad Arnett MD [address] [place] [address] Dr MARAVILLA[facility]Neurological [place] [address] Neurosurgery 02/19/18 documented as of this encounter Additional Source Comments The information contained in this document represents components of the legal health record. It is not the complete legal health record.[facility]
--- OUTSIDE RECORDS SUMMARY | 2025-01-03 12:11 | XMS_ITS | Encounter Summary ---
Author Organization [facility] Address [address] [facility] [address] [place] [address] Phone Care Team Providers Care Director Medicaid Name Role Phone Farzad Arnett MD Unavailable [phone] Vijay Bravo DO Primary Care Provider [phone] Reason for Visit * Reason Comments Medication Refill Encounter Details Date Type Department Care Team (Late st Contact Info) Description 11/02/2022 Refill [facility] [address] [address] Jett Reed DO [address] [place] [address] CAREN@[email or web address] Medication Refill Social History Tobacco Use [...] Description 01/10/2025 2:15 PM EDT Procedure visit [facility] [place] [address] [place] [address] Jett Reed DO [address] [place] [address] CAREN@[email or web address] documented as of this encounter Visit Diagnoses Not on filedocumented in this encounter Care Teams Director Medicaid Relationship Specialty Start Date End Date Vijay Bravo DO [address] [place] [address] Dr MARAVILLA_Neurological [place] [address] PCP - General Family Medicine 08/05/22 Farzad Arnett MD [address] [place] [address] Dr MARAVILLA_Neurological [place] [address] Neurosurgery 02/19/18 documented as of this encounter Additional Source Comments The information contained in this document represents components of the legal health record. It is not the complete legal health record.[facility]
--- OUTSIDE RECORDS SUMMARY | 2025-01-03 12:11 | XMS_ITS | Encounter Summary ---
Author Organization [facility] Address [address] [place] [address] Phone Care Team Providers Care Cnc Mill Set Up Operator Name Role Phone Unknown, Unknown Primary Care Provider Farzad Urias MD Unavailable [phone] Vijay Bravo DO Primary Care Provider [phone] Reason for Visit * Reason Comments Medication Refill Encounter Details Date Type Department Care Team (Late st Contact Info) Description 01/05/2020 Refill [facility] [address] [address] Jett Reed DO 300 [place] [address] CAREN@[email or web address] Medication Refill Social History Tobacco [...] Description 01/10/2025 2:15 PM EDT Procedure visit [facility] [address] [address] Jett Reed DO [address] [place] [address] HUGHASAMARCI@[email or web address] documented as of this encounter Visit Diagnoses Not on filedocumented in this encounter Care Teams Cnc Mill Set Up Operator Relationship Specialty Start Date End Date Unknown, Unknown, MD PCP - General 02/11/18 08/04/22 Vijay Bravo DO [address] [place] [address] Dr MARAVILLA_[place]urological [place] [address] PCP - General Family Medicine 08/05/22 Farzad Arnett MD [address] [place] [address] Dr MARAVILLA_[place]urological [place] [address] Neurosurgery 02/19/18 documented as of this encounter Additional Source Comments The information contained in this document represents components of the legal health record. It is not the complete legal health record.[facility]
--- OUTSIDE RECORDS SUMMARY | 2025-01-03 12:11 | XMS_ITS | Encounter Summary ---
Author Organization [facility] Address [address] [place] [address] Phone Care Team Providers Care Biostatistics Director Name Role Phone Unknown, Unknown Primary Care Provider Farzad Urias MD Unavailable [phone] Vijay Bravo DO Primary Care Provider [phone] Reason for Visit * Reason Comments Medication Refill Encounter Details Date Type Department Care Team (Late st Contact Info) Description 10/26/2020 Refill [facility] [address] [address] Traci Peterson MD, MPH [address] [place] [address] [email or web address] Medication Refill Social History Tobacco Use Types [...] Department Care Team (Late Contact Info) Description 01/10/2025 2:15 PM EDT Procedure visit [facility] [address] [address] Jett Reed DO [address] [place] [address] CAREN@[email or web address] documented as of this encounter Visit Diagnoses Not on filedocumented in this encounter Care Teams Biostatistics Director Relationship Specialty Start Date End Date Unknown, Unknown, MD PCP - General 02/11/18 08/04/22 Vijay Bravo DO [address] [place] [address] Dr MARAVILLA_Neurological [place] [address] PCP - General Family Medicine 08/05/22 Farzad Arnett MD [address] [place] [address] Dr MARAVILLA[facility]Neurological [place] [address] Neurosurgery 02/19/18 documented as of this encounter Additional Source Comments The information contained in this document represents components of the legal health record. It is not the complete legal health record.[facility]
--- OUTSIDE RECORDS SUMMARY | 2025-01-03 12:11 | XMS_ITS | Encounter Summary ---
Author Organization [facility] Address [address] [place] [address] Phone Care Team Providers Care Marine Steam Fitter Name Role Phone Farzad Arnett MD Unavailable [phone] Vijay Bravo DO Primary Care Provider Encounter Details Date Type Department Care Team (Late st Contact Info) Description 12/14/2024 Procedure Pass [facility] Per[facility] [address] [place] [address] Social History Tobacco Use Types Packs/Day Years [...] high school, GED, job training, learning the Japanese language, technical skills, or developing parenting skills)? [...] Description 01/10/2025 2:15 PM EDT Procedure visit [facility] [address] [address] Jett Reed DO [address] [place] [address] CAREN@[email or web address] documented as of this encounter Visit Diagnoses Not on filedocumented in this encounter Care Teams Marine Steam Fitter Relationship Specialty Start Date End Date Vijay Bravo DO [address] [place] [address] [facility]rological [place] [address] PCP - General Family Medicine 08/05/22 Farzad Arnett MD [address] [place] [address] Dr [facility]ILL[place]urological [place] [address] Neurosurgery 02/19/18 documented as of this encounter Additional Source Comments The information contained in this document represents components of the legal health record. It is not the complete legal health record.[facility]
--- OUTSIDE RECORDS SUMMARY | 2025-01-03 12:11 | XMS_ITS | Encounter Summary ---
Author Organization [facility] Address [address] [place] [address] Phone Care Team Providers Care Insurance Territory Manager Name Role Phone Unknown, Unknown Primary Care Provider Farzad Urias MD Unavailable [phone] Vijay Bravo DO Primary Care Provider [phone] Reason for Visit * Reason Comments Medication Refill Encounter Details Date Type Department Care Team (Late st Contact Info) Description 01/31/2020 Refill [facility] [address] [address] Jett Rede DO [address] [place] [address] CAREN@[email or web address] Medication Refill Social History Tobacco [...] Description 01/10/2025 2:15 PM EDT Procedure visit [facility] [address] [address] Jett Reed DO [address] [place] [address] HUGHASAMARCI@[email or web address] documented as of this encounter Visit Diagnoses Not on filedocumented in this encounter Care Teams Insurance Territory Manager Relationship Specialty Start Date End Date Unknown, Unknown, MD PCP - General 02/11/18 08/04/22 Vijay Bravo DO [address] [place] [address] Dr MARAVILLA_Neurological [place] [address] PCP - General Family Medicine 08/05/22 Farzad Arnett MD [address] [place] [address] Dr MARAVILLA_Neurological [place] [address] Neurosurgery 02/19/18 documented as of this encounter Additional Source Comments The information contained in this document represents components of the legal health record. It is not the complete legal health record.[facility]
--- OUTSIDE RECORDS SUMMARY | 2025-01-03 12:11 | XMS_ITS | Encounter Summary ---
Author Organization [facility] Address [address] [place] [address] Phone Care Team Providers Care Security Patrol Driver Name Role Phone Unknown, Unknown Primary Care Provider Farzad Urias MD Unavailable [phone] Vijay Bravo DO Primary Care Provider [phone] Reason for Visit * Reason Comments Medication Refill Encounter Details Date Type Department Care Team (Late st Contact Info) Description 11/01/2021 Refill [facility] [address] [address] Jett Reed DO [address] [place] [address] CAREN@[email or web address] Medication Refill Social History Tobacco Use Types [...] Description 01/10/2025 2:15 PM EDT Procedure visit [facility] [address] [address] Jett Reed DO [address] [place] [address] TIAMARCI@[email or web address] documented as of this encounter Visit Diagnoses Not on filedocumented in this encounter Care Teams Security Patrol Driver Relationship Specialty Start Date End Date Unknown, Unknown, MD PCP - General 02/11/18 08/04/22 Vijay Bravo DO [address] [place] [address] Dr MARAVILL[place]rological [place] [address] PCP - General Family Medicine 08/05/22 Farzad Arnett MD [address] [place] [address] Dr MARAVILL[place]rological [place] [address] Neurosurgery 02/19/18 documented as of this encounter Additional Source Comments The information contained in this document represents components of the legal health record. It is not the complete legal health record.[facility]
--- OUTSIDE RECORDS SUMMARY | 2025-01-03 12:11 | XMS_ITS | Encounter Summary ---
Author Organization [facility] Address [address] [place] [address] Phone Care Team Providers Care Dental Lab Technician Name Role Phone Unknown, Unknown Primary Care Provider Farzad Urias MD Unavailable [phone] Vijay Bravo DO Primary Care Provider [phone] Reason for Visit * Reason Comments Medication Refill Encounter Details Date Type Department Care Team (Late st Contact Info) Description 11/06/2020 Refill [facility] [address] [address] Jett Reed DO 300 [place] [address] CAREN@[email or web address] Medication Refill Social History Tobacco [...] Description 01/10/2025 2:15 PM EDT Procedure visit [facility] [address] [address] Jett Reed DO [address] [place] [address] TIAMARCI@[email or web address] documented as of this encounter Visit Diagnoses Not on filedocumented in this encounter Care Teams Dental Lab Technician Relationship Specialty Start Date End Date Unknown, Unknown, MD PCP - General 02/11/18 08/04/22 Vijay Bravo DO [address] [place] [address] Dr MAR[facility]ILL[place]rological [place] [address] PCP - General Family Medicine 08/05/22 Farzad Arnett MD [address] [place] [address] Dr [facility]rological [place] [address] Neurosurgery 02/19/18 documented as of this encounter Additional Source Comments The information contained in this document represents components of the legal health record. It is not the complete legal health record.[facility]
--- OUTSIDE RECORDS SUMMARY | 2025-01-03 12:11 | XMS_ITS | Encounter Summary ---
Author Organization [facility] Address [address] [place] [address] Phone Care Team Providers Care Superintendent Of Schools Name Role Phone Unknown, Unknown Primary Care Provider Farzad Urias MD Unavailable [phone] Vijay Bravo DO Primary Care Provider [phone] Reason for Visit * Reason Comments Medication Refill Encounter Details Date Type Department Care Team (Late st Contact Info) Description 11/16/2019 Refill [facility] [address] [address] Jett Reed DO [address] [place] [address] [email or web address] Medication Refill Social History Tobacco Use [...] Description 01/10/2025 2:15 PM EDT Procedure visit [facility] [address] [address] Jett Reed DO [address] [place] [address] [email or web address] documented as of this encounter Visit Diagnoses Not on filedocumented in this encounter Care Teams Superintendent Of Schools Relationship Specialty Start Date End Date Unknown, Unknown, MD PCP - General 02/11/18 08/04/22 Vijay Bravo DO [address] [place] [address] Dr MARAVILL[place]rological [place] [address] PCP - General Family Medicine 08/05/22 Farzad Arnett MD [address] [place] [address] Dr MARAVILL[place]rological [place] [address] Neurosurgery 02/19/18 documented as of this encounter Additional Source Comments The information contained in this document represents components of the legal health record. It is not the complete legal health record.[facility]
--- OUTSIDE RECORDS SUMMARY | 2025-01-03 12:11 | XMS_ITS | Clinical Summary ---
Author Organization [facility] Address [address] [place] [address] Care Team Providers Care Tank Cooper Name Role Phone Unavailable Primary Care Provider [...] patient's age to complete this topic Insurance [facility]
--- OUTSIDE RECORDS SUMMARY | 2025-01-03 12:11 | XMS_ITS | Encounter Summary ---
Author Organization [facility] Address [address] [place] [address] Phone Care Team Providers Care Gravedigger Name Role Phone Unknown, Unknown Primary Care Provider Farzad Urias MD Unavailable [phone] Vijay Bravo DO Primary Care Provider [phone] Reason for Visit * Reason Comments Medication Refill Encounter Details Date Type Department Care Team (Late st Contact Info) Description 11/02/2020 Refill [facility] [address] [address] Jett Reed DO [address] [place] [address] CAREN@[email or web address] Medication Refill Social History Tobacco Use Types [...] Description 01/10/2025 2:15 PM EDT Procedure visit [facility] [address] [address] Jett Reed DO [address] [place] [address] TIAMARCI@[email or web address] documented as of this encounter Visit Diagnoses Not on filedocumented in this encounter Care Teams Gravedigger Relationship Specialty Start Date End Date Unknown, Unknown, MD PCP - General 02/11/18 08/04/22 Vijay Bravo DO [address] [place] [address] Dr [facility] [address] PCP - General Family Medicine 08/05/22 Farzad Arnett MD [address] [place] [address] Dr [facility] [address] Neurosurgery 02/19/18 documented as of this encounter Additional Source Comments The information contained in this document represents components of the legal health record. It is not the complete legal health record.[facility]
== END 2025-01-03 11:27 | disposition home or self-care (01) ==
LOC: HO.HMCFM 10:43
PROVIDERS: PCP Internal Medicine; Visit Provider Internal Medicine
DX: Z87.828 Personal history of other (healed) physical injury and trauma (principal); M21.371 Foot drop, right foot; M21.372 Foot drop, left foot; R21 Rash and other nonspecific skin eruption; N40.0 Benign prostatic hyperplasia without lower urinary tract symptoms